=== PATIENT | female | born 1940 | race Two or more races ===

== ENCOUNTER 2021-05-21 19:14 | Emergency (ER) | payer OTHER ==
[~2021-05-21] VITALS: Ht 165.1 cm; Wt 65.8 kg
[2021-05-21] MEDS ORDERED: SODIUM CHLORIDE 0.9% 500 ML IV ONE (19:45)
[2021-05-21] MEDS ORDERED: VANCOMYCIN PER PHARMACY 1,000 MG IV SCH (19:45)
[2021-05-21 20:20] LABS: Basophils # (auto) 0 10 ^3/uL (0-0.2); Eosinophils # (auto) 0 10 ^3/uL (0-0.8); Eosinophils % (auto) 0.1 % (0.0-7.0); Hematocrit 16.8 % (36.0-46.0); Lymphocytes # (auto) 0.2 10 ^3/uL (0.4-5.4); Monocytes # (auto) 0.4 10 ^3/uL (0-1.3); Neutrophils # (auto) 5.2 10 ^3/uL (1.6-8.6); Red Blood Cells 1.78 10^6/uL (4.0-5.20)
[2021-05-21 20:22] LABS: Basophils % (auto) 0.8 % (0.0-2.0); Lymphocytes % (auto) 4.1 % (10.0-50.0); Mean Corpuscular Hemoglobin 31.6 pg (28.0-32.0); Mean Corpuscular Hgb Conc. 33.6 g/dL (32.0-36.0); Mean Corpuscular Volume 94.1 fL (80.0-100.0); Monocytes % (auto) 7.4 % (0.0-12.0); Neutrophils % (auto) 87.6 % (37.0-80.0); Red Cell Distribution Width 17.1 % (11.8-14.3)
[2021-05-21 20:25] LABS: Albumin 1.9 g/dL (3.4-5.0); Calcium 6.7 mg/dL (8.5-10.1); Magnesium 1.5 mg/dL (1.6-2.6)
[2021-05-21 20:27] LABS: INR 1.25 (0.9-1.15); Partial Thromboplastin Time 34.5 sec (23.6-33.0)
[2021-05-21 20:31] LABS: BUN/Creatinine Ratio 5.7; Bilirubin, Total 0.6 mg/dL (0.2-1.0); Total Protein 5.2 g/dL (6.4-8.2)
[2021-05-21 20:40] LABS: Hemoglobin 5.6 g/dL (12.2-16.2); Potassium 2.8 mmol/L (3.5-5.1)
[2021-05-21] MEDS ORDERED: POTASSIUM CHLORIDE 20 MEQ in D5W 5% 1,000 ML IV SCH (20:45)
[2021-05-21] MEDS ORDERED: VANCOMYCIN 1GM/250ML 250 ML IV ONE (21:30)
[2021-05-21] MEDS ORDERED: PIPERACILLIN-TAZOB 2.25GM 50 ML IV SCH (22:00)
[2021-05-21] MEDS ORDERED: POTASSIUM CHL 20MEQ/100ML 100 ML IV ONE (22:00)
[2021-05-22] MEDS ORDERED: PIPERACILLIN-TAZOB 3.375GM 100 ML IV SCH
[2021-05-22] MEDS ORDERED: diphenhdrAMINE HCL 50 MG/1 ML VL IV ONE (00:15)
[2021-05-22 00:51] VITALS: BP 157/53
[2021-05-22 01:14] VITALS: BP 152/56
[2021-05-22 02:26] VITALS: BP 190/81
[2021-05-22 02:52] VITALS: BP 147/51
[2021-05-22 03:25] VITALS: BP 144/49
== END 2021-05-22 04:45 | disposition short-term general hospital (02) ==
LOC: EDBD 19:14 → ER 19:14
DX: D64.9 Anemia, unspecified (principal); E87.6 Hypokalemia; A41.9 Sepsis, unspecified organism; J18.9 Pneumonia, unspecified organism; I13.2 Hypertensive heart and chronic kidney disease with heart failure and with stage 5 chronic kidney disease, or end stage renal disease; N18.6 End stage renal disease; I50.9 Heart failure, unspecified; Z20.822 Contact with and (suspected) exposure to COVID-19
CPT/HCPCS: 36415; 36430; 71045; 80053; 83605; 83690; 83735; 84484; 85025; 85610; 85730; 86850; 86900; 86901; 87040; 87426; 93005; 96365; 96366; 96368; 96375; 99285; J1200; J3370; J3480; J7030; J7040; J7070; P9016; 86922

== ENCOUNTER 2021-06-10 06:37 | Emergency (ER) | payer OTHER ==
[~2021-06-10] VITALS: Ht 160 cm; Wt 74.8 kg
[2021-06-10] MEDS ORDERED: LABETALOL HCL 5 MG/ML 4ML SYRINGE IV ONE (07:15)
[2021-06-10 07:48] LABS: Basophils # (auto) 0.1 10 ^3/uL (0-0.2); Basophils % (auto) 0.7 % (0.0-2.0); Eosinophils # (auto) 0.2 10 ^3/uL (0-0.8); Eosinophils % (auto) 1.8 % (0.0-7.0); Hematocrit 26.8 % (36.0-46.0); Lymphocytes % (auto) 10.2 % (10.0-50.0); Mean Corpuscular Hgb Conc. 33.5 g/dL (32.0-36.0); Mean Corpuscular Volume 98.6 fL (80.0-100.0); Monocytes # (auto) 0.4 10 ^3/uL (0-1.3); Monocytes % (auto) 4.4 % (0.0-12.0); Neutrophils # (auto) 8.2 10 ^3/uL (1.6-8.6); Neutrophils % (auto) 82.9 % (37.0-80.0); Red Blood Cells 2.72 10^6/uL (4.0-5.20); Red Cell Distribution Width 18.5 % (11.8-14.3); White Blood Cell 9.9 10^3/uL (4.4-10.8)
[2021-06-10 08:01] LABS: Albumin 3.2 g/dL (3.4-5.0); Calcium 9.5 mg/dL (8.5-10.1); Magnesium 2.2 mg/dL (1.6-2.6)
[2021-06-10 08:09] LABS: BUN/Creatinine Ratio 9.1; Bilirubin, Total 0.7 mg/dL (0.2-1.0); Total Protein 7.7 g/dL (6.4-8.2)
[2021-06-10 08:12] LABS: Potassium 5.6 mmol/L (3.5-5.1)
[2021-06-10 08:18] LABS: INR 0.99 (0.9-1.15); Partial Thromboplastin Time 32.5 sec (23.6-33.0)
[2021-06-10] MEDS ORDERED: ALBUTEROL SULF 2.5 MG/0.5ML(0.5%) NEB SOLN NEB ONE (08:30)
[2021-06-10] MEDS ORDERED: SODIUM ZIRCONIUM CYCL 10 GM PAK PO ONE (08:30)
[2021-06-10] MEDS ORDERED: FUROSEMIDE 20 MG/2 ML VIAL IV ONE (08:30)
[2021-06-10] MEDS ORDERED: InsuLIN REG 1unit/0.01ml Soln (100units/ml) IV ONE (08:30)
[2021-06-10] MEDS ORDERED: CALCIUM GLUC 1,000mg/50ml-NS 50 ML IV ONE (08:30)
[2021-06-10] MEDS ORDERED: SODIUM BICARBONATE 8.4% INJ 50ML SYRINGE IV ONE (08:30)
[2021-06-10] MEDS ORDERED: DEXTROSE (50%) 50ML SYRG IV ONE (08:30)
[2021-06-10 09:13] LABS: Urine Bacteria NONE SEEN /hpf (None Seen); Urine Blood 1+ /uL (Negative); Urine Specific Gravity 1.009 (1.001-1.035); Urine WBC 2 /hpf (0 - 5)
[2021-06-10] MEDS ORDERED: PIPERACILLIN-TAZOB 3.375GM 100 ML IV ONE (10:45)
[2021-06-10 14:18] VITALS: BP 139/64
== END 2021-06-10 14:32 | disposition short-term general hospital (02) ==
LOC: ER 06:37 → EDBD 06:37 → ER 14:32
DX: I13.2 Hypertensive heart and chronic kidney disease with heart failure and with stage 5 chronic kidney disease, or end stage renal disease (principal); I50.9 Heart failure, unspecified; N18.6 End stage renal disease; E11.22 Type 2 diabetes mellitus with diabetic chronic kidney disease; J18.9 Pneumonia, unspecified organism; E87.5 Hyperkalemia; E44.1 Mild protein-calorie malnutrition; Z68.29 Body mass index [BMI] 29.0-29.9, adult; Z99.2 Dependence on renal dialysis; Z20.822 Contact with and (suspected) exposure to COVID-19
CPT/HCPCS: 36415; 71045; 80053; 81001; 83735; 83880; 84132; 84484; 85025; 85379; 85610; 85730; 87426; 93005; 94640; 96365; 96366; 96367; 96375; 99285; J0610; J1815; J1940; J2543; J7042; J3490

== ENCOUNTER 2021-07-31 11:03 | Emergency (ER) | payer OTHER ==
[~2021-07-31] VITALS: Ht 157.5 cm; Wt 76.2 kg
[2021-07-31 11:07] VITALS: BP 137/52
== END 2021-07-31 12:00 | disposition left against medical advice (07) ==
LOC: ER 11:03
DX: R51.9 Headache, unspecified (principal); H53.8 Other visual disturbances; R11.0 Nausea; Z53.21 Procedure and treatment not carried out due to patient leaving prior to being seen by health care provider

== ENCOUNTER 2021-10-16 14:09 | Inpatient (IN) | payer OTHER ==
[~2021-10-16] VITALS: Ht 157.5 cm; Wt 80.0 kg
[2021-10-16 15:17] LABS: Basophils # (auto) 0.1 10 ^3/uL (0-0.2); Basophils % (auto) 1.4 % (0.0-2.0); Eosinophils # (auto) 0.1 10 ^3/uL (0-0.8); Eosinophils % (auto) 0.7 % (0.0-7.0); Hematocrit 30.2 % (36.0-46.0); Hemoglobin 10.5 g/dL (12.2-16.2); Lymphocytes # (auto) 0.5 10 ^3/uL (0.4-5.4); Lymphocytes % (auto) 5.2 % (10.0-50.0); Mean Corpuscular Hemoglobin 34.3 pg (28.0-32.0); Mean Corpuscular Hgb Conc. 34.8 g/dL (32.0-36.0); Mean Corpuscular Volume 98.5 fL (80.0-100.0); Monocytes # (auto) 0.5 10 ^3/uL (0-1.3); Monocytes % (auto) 4.6 % (0.0-12.0); Neutrophils # (auto) 9.2 10 ^3/uL (1.6-8.6); Neutrophils % (auto) 88.1 % (37.0-80.0); Nucleated Red Blood Cells % 0.1 %; Red Blood Cells 3.06 10^6/uL (4.0-5.20); Red Cell Distribution Width 14.9 % (11.8-14.3); White Blood Cell 10.4 10^3/uL (4.4-10.8)
[2021-10-16 15:26] LABS: Albumin 3.4 g/dL (3.4-5.0); Calcium 9.7 mg/dL (8.5-10.1)
[2021-10-16 15:37] LABS: BUN/Creatinine Ratio 5.3; Bilirubin, Total 0.8 mg/dL (0.2-1.0); Total Protein 7.4 g/dL (6.4-8.2)
[2021-10-16] MEDS ORDERED: hydrALAZINE HCL 20 MG/ML VL IV ONE (17:30)
[2021-10-16] MEDS ORDERED: FUROSEMIDE 40 MG/4 ML VIAL IV ONE (17:45)
[2021-10-16] MEDS ORDERED: TEMAZEPAM 15 MG CAP PO PRN (21:00)
[2021-10-16] MEDS ORDERED: ACETAMINOPHEN 325 MG TAB PO PRN (21:00)
[2021-10-16] MEDS ORDERED: DEXTROSE (50%) 50ML SYRG IV PRN (21:00)
[2021-10-16] MEDS ORDERED: MORPHINE SULFATE INJECTION 2 MG/ML SYRG IV PRN (21:00)
[2021-10-16] MEDS ORDERED: NITROGLYCERIN 0.4 MG SL TAB SL PRN (21:00)
[2021-10-16] MEDS ORDERED: hydrALAZINE HCL 20 MG/ML VL IV PRN (21:45)
[2021-10-16] MEDS ORDERED: cloNIDine HCL 0.1 MG TAB PO ONE (21:45)
[2021-10-16] MEDS: InsuLIN REG 1unit/0.01ml Soln (100units/ml) SC SCH (22:00)
[2021-10-16 22:02] LABS: Urine Bacteria NONE SEEN /hpf (None Seen); Urine Blood TRACE /uL (Negative); Urine Specific Gravity 1.012 (1.001-1.035); Urine WBC <1 /hpf (0 - 5)
[2021-10-16] MEDS: ATORVASTATIN 20 MG TAB PO SCH (22:21)
[2021-10-16] MEDS: ACCU-CHEK COMFORT CURVE STRIP VI SCH (22:22)
[2021-10-17] VITALS (34 sets, daily range): BP systolic 119–170; BP diastolic 40–113
[2021-10-17] MEDS ORDERED: ENOXAPARIN SOD 100 MG/1 ML SYRINGE SC ONE (02:45)
[2021-10-17 04:30] LABS: Basophils # (auto) 0.1 10 ^3/uL (0-0.2); Eosinophils # (auto) 0.1 10 ^3/uL (0-0.8); Eosinophils % (auto) 0.9 % (0.0-7.0); Hematocrit 26.5 % (36.0-46.0); Hemoglobin 9.3 g/dL (12.2-16.2); Lymphocytes # (auto) 1.1 10 ^3/uL (0.4-5.4); Lymphocytes % (auto) 14.7 % (10.0-50.0); Mean Corpuscular Hemoglobin 34.4 pg (28.0-32.0); Mean Corpuscular Hgb Conc. 35.1 g/dL (32.0-36.0); Mean Corpuscular Volume 97.9 fL (80.0-100.0); Monocytes # (auto) 0.8 10 ^3/uL (0-1.3); Monocytes % (auto) 10.8 % (0.0-12.0); Neutrophils # (auto) 5.4 10 ^3/uL (1.6-8.6); Neutrophils % (auto) 72.6 % (37.0-80.0); Red Cell Distribution Width 14.8 % (11.8-14.3); White Blood Cell 7.4 10^3/uL (4.4-10.8)
[2021-10-17 05:18] LABS: Calcium 9.1 mg/dL (8.5-10.1); Potassium 3.9 mmol/L (3.5-5.1)
[2021-10-17 05:20] LABS: BUN/Creatinine Ratio 5.6
[2021-10-17] MEDS: ACCU-CHEK COMFORT CURVE STRIP VI SCH ×4 (06:48→22:09)
[2021-10-17] MEDS: InsuLIN REG 1unit/0.01ml Soln (100units/ml) SC SCH ×4 (06:49→22:53)
[2021-10-17] MEDS: ASPirin 81 mg TAB PO SCH (09:23)
[2021-10-17] MEDS ORDERED: METOPROLOL TARTRATE 50 MG TAB PO SCH (10:00)
[2021-10-17] MEDS ORDERED: ENOXAPARIN SOD 30 MG/0.3 ML SYRINGE SC SCH (10:00)
[2021-10-17] MEDS: ISOSORBIDE MONONITRATE ER 60 MG TAB PO SCH (10:01)
[2021-10-17] MEDS: LISINOPRIL 20 MG TAB PO SCH (10:02)
[2021-10-17] MEDS: METOPROLOL TARTRATE 25 MG TAB PO SCH ×2 (10:10→22:09)
[2021-10-17] MEDS: ATORVASTATIN 20 MG TAB PO SCH (22:08)
[2021-10-18 05:00] VITALS: BP 125/62
[2021-10-18] MEDS: InsuLIN REG 1unit/0.01ml Soln (100units/ml) SC SCH ×4 (06:13→22:41)
[2021-10-18] MEDS: ACCU-CHEK COMFORT CURVE STRIP VI SCH ×4 (06:13→22:23)
[2021-10-18 06:47] LABS: Calcium 8.9 mg/dL (8.5-10.1); Potassium 4.4 mmol/L (3.5-5.1)
[2021-10-18 06:52] LABS: BUN/Creatinine Ratio 6.5; Hematocrit 21.4 % (36.0-46.0); Hemoglobin 7.9 g/dL (12.2-16.2)
[2021-10-18] MEDS ORDERED: SODIUM CHL 0.9% 1000 ML BAG XX ONE (07:00)
[2021-10-18 09:00] VITALS: BP 168/57
[2021-10-18] MEDS: ASPirin 81 mg TAB PO SCH (09:46)
[2021-10-18] MEDS: ISOSORBIDE MONONITRATE ER 60 MG TAB PO SCH (10:00)
[2021-10-18] MEDS: METOPROLOL TARTRATE 25 MG TAB PO SCH ×2 (10:00→22:24)
[2021-10-18] MEDS: LISINOPRIL 20 MG TAB PO SCH (10:00)
[2021-10-18] MEDS: B-COMPLEX W/ C & FOLIC ACID(NEPHROVITE TAB) PO SCH (12:57)
[2021-10-18 13:00] VITALS: BP 164/68
[2021-10-18] MEDS: hydrALAZINE HCL 25 MG TAB PO SCH ×2 (14:00→22:25)
[2021-10-18] MEDS: HYDROcodone-ACET 5/325MG TAB PO PRN ×2 (15:18→21:21)
[2021-10-18 17:00] VITALS: BP 175/71
[2021-10-18] MEDS ORDERED: EPOETIN ALFA-EPBX 4,000 UNIT/ML VIAL SC ONE (21:00)
[2021-10-18 22:00] VITALS: BP 151/59
[2021-10-18] MEDS: ATORVASTATIN 20 MG TAB PO SCH (22:24)
[2021-10-19 05:00] VITALS: BP 108/66
[2021-10-19] MEDS: hydrALAZINE HCL 25 MG TAB PO SCH ×3 (05:47→22:00)
[2021-10-19 06:25] LABS: Basophils # (auto) 0.1 10 ^3/uL (0-0.2); Eosinophils # (auto) 0.2 10 ^3/uL (0-0.8); Hematocrit 25.6 % (36.0-46.0); Monocytes # (auto) 0.6 10 ^3/uL (0-1.3); White Blood Cell 5.9 10^3/uL (4.4-10.8)
[2021-10-19 06:29] LABS: Basophils % (auto) 1.1 % (0.0-2.0); Eosinophils % (auto) 3.9 % (0.0-7.0); Hemoglobin 9.1 g/dL (12.2-16.2); Lymphocytes # (auto) 1.2 10 ^3/uL (0.4-5.4); Lymphocytes % (auto) 20.2 % (10.0-50.0); Mean Corpuscular Hemoglobin 34.9 pg (28.0-32.0); Mean Corpuscular Hgb Conc. 35.5 g/dL (32.0-36.0); Mean Corpuscular Volume 98.4 fL (80.0-100.0); Monocytes % (auto) 10.2 % (0.0-12.0); Neutrophils # (auto) 3.8 10 ^3/uL (1.6-8.6); Neutrophils % (auto) 64.6 % (37.0-80.0); Nucleated Red Blood Cells % 0.1 %; Red Cell Distribution Width 14.8 % (11.8-14.3)
[2021-10-19 06:30] LABS: INR 1.04 (0.9-1.15); Partial Thromboplastin Time 24.6 sec (23.6-33.0)
[2021-10-19 06:36] LABS: Calcium 9.6 mg/dL (8.5-10.1); Potassium 4.8 mmol/L (3.5-5.1)
[2021-10-19 06:41] LABS: BUN/Creatinine Ratio 7.4
[2021-10-19] MEDS: ACCU-CHEK COMFORT CURVE STRIP VI SCH ×4 (06:45→22:00)
[2021-10-19] MEDS: InsuLIN REG 1unit/0.01ml Soln (100units/ml) SC SCH ×4 (06:46→22:00)
[2021-10-19] MEDS: ISOSORBIDE MONONITRATE ER 60 MG TAB PO SCH (08:14)
[2021-10-19] MEDS: METOPROLOL TARTRATE 25 MG TAB PO SCH ×2 (08:16→09:16)
[2021-10-19] MEDS: LISINOPRIL 20 MG TAB PO SCH (08:16)
[2021-10-19] MEDS ORDERED: IODIXANOL 320MG/ML 100ML BTL IV ONE ×5 (08:46→10:56)
[2021-10-19] MEDS ORDERED: LIDOCAINE 2%HCL (LOCAL ANESTH.) INJ 20ML MDV ONE (08:46)
[2021-10-19] MEDS ORDERED: HEPARIN IN NS 1000Units/500mL 1,500 ML ONE (08:46)
[2021-10-19 09:00] VITALS: BP 178/87
[2021-10-19] MEDS ORDERED: MIDAZOLAM HCL 2MG/2ML 2ml VIAL (1mg/ml) ONE ×2 (09:00→10:38)
[2021-10-19] MEDS ORDERED: fentaNYL CITRATE 100 MCG/2 ML VL ONE (09:00)
[2021-10-19] MEDS ORDERED: SODIUM CHL 0.9% 50 ML ONE (09:00)
[2021-10-19] MEDS ORDERED: HEPARIN SODIUM (PORCINE) 5000 UNITS/ML 1ML VIAL ONE (09:00)
[2021-10-19] MEDS ORDERED: VERAPAMIL 2.5MG/ML INJ 2ML VIAL IV ONE (09:00)
[2021-10-19] MEDS ORDERED: ANGIOMAX 250 MG VIAL IV ONE (09:00)
[2021-10-19] MEDS ORDERED: EPINEPHrine HCL 1 MG/10 ML SYRG ONE (09:39)
[2021-10-19] MEDS ORDERED: ATROPINE SULF 1 MG/10ml SYR ONE (09:39)
[2021-10-19] MEDS: ASPirin 81 mg TAB PO SCH (10:00)
[2021-10-19] MEDS: B-COMPLEX W/ C & FOLIC ACID(NEPHROVITE TAB) PO SCH (10:00)
[2021-10-19] MEDS ORDERED: ASPirin 325 MG TAB ONE (11:05)
[2021-10-19] MEDS ORDERED: CLOPIDOGREL 300 MG TAB ONE (11:05)
[2021-10-19] MEDS ORDERED: HYDROcodone-ACET 5/325MG TAB ONE (11:24)
[2021-10-19] MEDS: HYDROcodone-ACET 5/325MG TAB PO PRN (16:41)
[2021-10-19] MEDS ORDERED: MORPHINE SULFATE INJECTION 2 MG/ML SYRG IV ONE (16:45)
[2021-10-19 17:00] VITALS: BP 106/44
[2021-10-19 22:00] VITALS: BP 126/64
[2021-10-19] MEDS: diphenhdrAMINE HCL 25 MG CAP PO PRN (22:00)
[2021-10-19] MEDS: ATORVASTATIN 20 MG TAB PO SCH (22:00)
[2021-10-20] MEDS: HYDROcodone-ACET 5/325MG TAB PO PRN ×3 (03:51→18:33)
[2021-10-20 05:00] VITALS: BP 137/48
[2021-10-20] MEDS: hydrALAZINE HCL 25 MG TAB PO SCH ×3 (06:00→22:00)
[2021-10-20 06:54] LABS: BUN/Creatinine Ratio 7.9; Calcium 8.9 mg/dL (8.5-10.1); Potassium 4.8 mmol/L (3.5-5.1)
[2021-10-20] MEDS: ACCU-CHEK COMFORT CURVE STRIP VI SCH ×4 (07:00→22:00)
[2021-10-20] MEDS ORDERED: SODIUM CHL 0.9% 1000 ML BAG XX ONE (07:00)
[2021-10-20] MEDS: InsuLIN REG 1unit/0.01ml Soln (100units/ml) SC SCH ×4 (07:15→22:32)
[2021-10-20 09:00] VITALS: BP 122/51
[2021-10-20] MEDS ORDERED: PANT40TA2 PO (09:16)
[2021-10-20] MEDS ORDERED: ISO60SRT PO (09:16)
[2021-10-20] MEDS ORDERED: NITR0.4S29 SL (09:16)
[2021-10-20] MEDS ORDERED: MET25T PO (09:16)
[2021-10-20] MEDS ORDERED: HYDR50TA15 PO (09:16)
[2021-10-20] MEDS ORDERED: ASPI1TAB20 PO (09:16)
[2021-10-20] MEDS ORDERED: CLOP75TA28 PO (09:16)
[2021-10-20] MEDS: ISOSORBIDE MONONITRATE ER 60 MG TAB PO SCH (10:00)
[2021-10-20] MEDS: LISINOPRIL 20 MG TAB PO SCH (10:00)
[2021-10-20] MEDS: ASPirin 81 mg TAB PO SCH (10:15)
[2021-10-20] MEDS: B-COMPLEX W/ C & FOLIC ACID(NEPHROVITE TAB) PO SCH (10:16)
[2021-10-20] MEDS: METOPROLOL TARTRATE 25 MG TAB PO SCH ×2 (10:16→22:00)
[2021-10-20] MEDS: CLOPIDOGREL BISULFATE 75 MG TAB PO SCH (10:17)
[2021-10-20 13:00] VITALS: BP 134/49
[2021-10-20 16:38] VITALS: BP 139/69
[2021-10-20] MEDS: ONDANSETRON HCL 4 MG/2 ML VIAL IV PRN (18:44)
[2021-10-20] MEDS ORDERED: EPOETIN ALFA-EPBX 4,000 UNIT/ML VIAL SC ONE (21:00)
[2021-10-20 22:00] VITALS: BP 126/51
[2021-10-20] MEDS: ATORVASTATIN 20 MG TAB PO SCH (22:00)
[2021-10-21] VITALS (14 sets, daily range): BP systolic 111–148; BP diastolic 38–62
[2021-10-21] MEDS: HYDROcodone-ACET 5/325MG TAB PO PRN ×2 (00:12→19:54)
[2021-10-21] MEDS: hydrALAZINE HCL 25 MG TAB PO SCH ×3 (06:12→22:30)
[2021-10-21] MEDS: ACCU-CHEK COMFORT CURVE STRIP VI SCH ×4 (06:51→22:00)
[2021-10-21] MEDS: InsuLIN REG 1unit/0.01ml Soln (100units/ml) SC SCH ×4 (06:54→22:00)
[2021-10-21 08:23] LABS: BUN/Creatinine Ratio 6.2; Calcium 8.8 mg/dL (8.5-10.1); Potassium 4.5 mmol/L (3.5-5.1)
[2021-10-21] MEDS: B-COMPLEX W/ C & FOLIC ACID(NEPHROVITE TAB) PO SCH (10:00)
[2021-10-21] MEDS: ASPirin 81 mg TAB PO SCH (10:00)
[2021-10-21] MEDS: CLOPIDOGREL BISULFATE 75 MG TAB PO SCH (10:00)
[2021-10-21] MEDS: METOPROLOL TARTRATE 25 MG TAB PO SCH ×2 (10:00→22:00)
[2021-10-21] MEDS ORDERED: LIDOCAINE 2%HCL (LOCAL ANESTH.) INJ 20ML MDV ONE (10:01)
[2021-10-21] MEDS ORDERED: MIDAZOLAM HCL 2MG/2ML 2ml VIAL (1mg/ml) ONE ×2 (10:32→16:06)
[2021-10-21] MEDS ORDERED: fentaNYL CITRATE 100 MCG/2 ML VL ONE ×2 (10:32→16:06)
[2021-10-21] MEDS ORDERED: IOHEXOL 350 MG/ML 100ML IJ ONE (11:36)
[2021-10-21] MEDS ORDERED: THROMBIN (BOVINE) 5000 UNIT SOL VIAL ONE (16:23)
[2021-10-21] MEDS ORDERED: THROMBIN (BOVINE) 5000 UNIT SOL VIAL TP ONE (17:30)
[2021-10-21 18:52] LABS: Basophils # (auto) 0.1 10 ^3/uL (0-0.2); Eosinophils % (auto) 0.6 % (0.0-7.0); Lymphocytes # (auto) 0.8 10 ^3/uL (0.4-5.4); Monocytes # (auto) 0.6 10 ^3/uL (0-1.3); Nucleated Red Blood Cells % 0.1 %; Red Cell Distribution Width 16.1 % (11.8-14.3)
[2021-10-21 18:53] LABS: Basophils % (auto) 1.4 % (0.0-2.0); Eosinophils # (auto) 0.1 10 ^3/uL (0-0.8); Hematocrit 18.2 % (36.0-46.0); Lymphocytes % (auto) 9.8 % (10.0-50.0); Mean Corpuscular Hemoglobin 34.9 pg (28.0-32.0); Mean Corpuscular Hgb Conc. 36.2 g/dL (32.0-36.0); Mean Corpuscular Volume 96.4 fL (80.0-100.0); Monocytes % (auto) 6.8 % (0.0-12.0); Neutrophils % (auto) 81.4 % (37.0-80.0); Red Blood Cells 1.89 10^6/uL (4.0-5.20); White Blood Cell 8.6 10^3/uL (4.4-10.8)
[2021-10-21 18:59] LABS: Hemoglobin 6.6 g/dL (12.2-16.2)
[2021-10-21] MEDS: ATORVASTATIN 20 MG TAB PO SCH (22:00)
[2021-10-22] VITALS (12 sets, daily range): BP systolic 123–188; BP diastolic 50–76
[2021-10-22] MEDS: HYDROcodone-ACET 5/325MG TAB PO PRN ×5 (02:00→23:51)
[2021-10-22 05:28] LABS: Hematocrit 23.7 % (36.0-46.0); Hemoglobin 8.4 g/dL (12.2-16.2)
[2021-10-22] MEDS: ONDANSETRON HCL 4 MG/2 ML VIAL IV PRN (05:31)
[2021-10-22] MEDS: guaiFENesin-DM 100/10mg/5ml SYR PO PRN (05:44)
[2021-10-22] MEDS: hydrALAZINE HCL 25 MG TAB PO SCH ×3 (06:00→22:28)
[2021-10-22] MEDS: ACCU-CHEK COMFORT CURVE STRIP VI SCH ×4 (07:00→21:27)
[2021-10-22] MEDS: InsuLIN REG 1unit/0.01ml Soln (100units/ml) SC SCH ×4 (07:00→21:27)
[2021-10-22] MEDS ORDERED: SODIUM CHL 0.9% 1000 ML BAG XX ONE (07:00)
[2021-10-22] MEDS: diphenhdrAMINE HCL 25 MG CAP PO PRN ×2 (10:02→17:47)
[2021-10-22] MEDS: ASPirin 81 mg TAB PO SCH (10:04)
[2021-10-22] MEDS: METOPROLOL TARTRATE 25 MG TAB PO SCH ×2 (10:05→22:29)
[2021-10-22] MEDS: CLOPIDOGREL BISULFATE 75 MG TAB PO SCH (10:06)
[2021-10-22] MEDS: B-COMPLEX W/ C & FOLIC ACID(NEPHROVITE TAB) PO SCH (10:06)
[2021-10-22 12:53] LABS: Basophils # (auto) 0 10 ^3/uL (0-0.2); Basophils % (auto) 0.3 % (0.0-2.0); Eosinophils # (auto) 0 10 ^3/uL (0-0.8); Eosinophils % (auto) 0.2 % (0.0-7.0); Lymphocytes # (auto) 0.4 10 ^3/uL (0.4-5.4); Monocytes # (auto) 0.6 10 ^3/uL (0-1.3)
[2021-10-22 12:55] LABS: Lymphocytes % (auto) 3.6 % (10.0-50.0); Mean Corpuscular Hemoglobin 32.7 pg (28.0-32.0); Mean Corpuscular Volume 93.5 fL (80.0-100.0); Monocytes % (auto) 5.1 % (0.0-12.0); Neutrophils % (auto) 90.8 % (37.0-80.0); Nucleated Red Blood Cells % 0.2 %; Red Blood Cells 2.46 10^6/uL (4.0-5.20); Red Cell Distribution Width 16.2 % (11.8-14.3)
[2021-10-22] MEDS ORDERED: EPOETIN ALFA-EPBX 4,000 UNIT/ML VIAL SC ONE (21:00)
[2021-10-22] MEDS: ATORVASTATIN 20 MG TAB PO SCH (22:29)
[2021-10-22] MEDS: HEPARIN SODIUM (PORCINE) 5000 UNITS/ML 1ML VIAL SC SCH (22:30)
[2021-10-22] MEDS: hydrALAZINE HCL 20 MG/ML VL IV PRN (23:50)
[2021-10-23 04:44] VITALS: BP 159/65
[2021-10-23 05:29] LABS: Basophils # (auto) 0 10 ^3/uL (0-0.2); Basophils % (auto) 1.1 % (0.0-2.0); Eosinophils # (auto) 0 10 ^3/uL (0-0.8); Eosinophils % (auto) 1.3 % (0.0-7.0); Hematocrit 35.7 % (36.0-46.0); Hemoglobin 12.5 g/dL (12.2-16.2); Lymphocytes # (auto) 0.4 10 ^3/uL (0.4-5.4); Lymphocytes % (auto) 11.1 % (10.0-50.0); Mean Corpuscular Hemoglobin 32.5 pg (28.0-32.0); Mean Corpuscular Volume 92.8 fL (80.0-100.0); Monocytes # (auto) 0.2 10 ^3/uL (0-1.3); Monocytes % (auto) 5.5 % (0.0-12.0); Neutrophils # (auto) 3.1 10 ^3/uL (1.6-8.6); Nucleated Red Blood Cells % 0.1 %; Red Blood Cells 3.84 10^6/uL (4.0-5.20); Red Cell Distribution Width 16.1 % (11.8-14.3); White Blood Cell 3.8 10^3/uL (4.4-10.8)
[2021-10-23 05:32] LABS: Anion Gap 8 (5-15); BUN/Creatinine Ratio 5.3; Blood Urea Nitrogen 31 mg/dL (7-18); Calcium 8.7 mg/dL (8.5-10.1); Carbon Dioxide 28 mmol/L (21-32); Chloride 97 mmol/L (98-107); GFR African American 9 mL/min; GFR Non-African American 7 mL/min; Glucose 120 mg/dL (74-106); Sodium 133 mmol/L (136-145)
[2021-10-23] MEDS: HEPARIN SODIUM (PORCINE) 5000 UNITS/ML 1ML VIAL SC SCH ×3 (05:58→22:14)
[2021-10-23] MEDS: hydrALAZINE HCL 25 MG TAB PO SCH ×3 (05:58→22:35)
[2021-10-23] MEDS: diphenhdrAMINE HCL 25 MG CAP PO PRN (06:23)
[2021-10-23] MEDS: InsuLIN REG 1unit/0.01ml Soln (100units/ml) SC SCH ×4 (06:41→22:13)
[2021-10-23] MEDS: ACCU-CHEK COMFORT CURVE STRIP VI SCH ×4 (06:41→22:14)
[2021-10-23] MEDS: HYDROcodone-ACET 5/325MG TAB PO PRN (07:47)
[2021-10-23 09:00] VITALS: BP 183/52
[2021-10-23] MEDS: ASPirin 81 mg TAB PO SCH (09:55)
[2021-10-23] MEDS: B-COMPLEX W/ C & FOLIC ACID(NEPHROVITE TAB) PO SCH (09:55)
[2021-10-23] MEDS: METOPROLOL TARTRATE 25 MG TAB PO SCH (09:56)
[2021-10-23] MEDS ORDERED: LISINOPRIL 20 MG TAB PO ONE (10:15)
[2021-10-23] MEDS ORDERED: CLOPIDOGREL BISULFATE 75 MG TAB PO ONE (10:15)
[2021-10-23 13:00] VITALS: BP 162/54
[2021-10-23 17:00] VITALS: BP 185/48
[2021-10-23] MEDS: guaiFENesin-DM 100/10mg/5ml SYR PO PRN (20:19)
[2021-10-23 22:00] VITALS: BP 160/84
[2021-10-23] MEDS: METOPROLOL TARTRATE 50 MG TAB PO SCH (22:32)
[2021-10-23] MEDS: ATORVASTATIN 20 MG TAB PO SCH (22:32)
[2021-10-23] MEDS ORDERED: THROAT LOZENGES(CEPASTAT) MT PRN (23:30)
[2021-10-24] MEDS: hydrALAZINE HCL 20 MG/ML VL IV PRN (02:27)
[2021-10-24] MEDS: HYDROcodone-ACET 5/325MG TAB PO PRN ×2 (02:29→22:11)
[2021-10-24] MEDS ORDERED: LABETALOL HCL 5 MG/ML 4ML SYRINGE IV ONE (03:30)
[2021-10-24] MEDS ORDERED: LABETALOL HCL 5 MG/ML 4ML SYRINGE IV PRN (04:45)
[2021-10-24 05:00] VITALS: BP 184/88
[2021-10-24] MEDS: hydrALAZINE HCL 25 MG TAB PO SCH ×3 (05:03→21:54)
[2021-10-24] MEDS: HEPARIN SODIUM (PORCINE) 5000 UNITS/ML 1ML VIAL SC SCH ×3 (05:07→21:58)
[2021-10-24] MEDS: InsuLIN REG 1unit/0.01ml Soln (100units/ml) SC SCH ×4 (06:18→21:55)
[2021-10-24] MEDS: ACCU-CHEK COMFORT CURVE STRIP VI SCH ×4 (06:18→21:55)
[2021-10-24 06:43] VITALS: BP 139/50
[2021-10-24 07:16] LABS: Basophils # (auto) 0 10 ^3/uL (0-0.2); Basophils % (auto) 0.4 % (0.0-2.0); Eosinophils # (auto) 0 10 ^3/uL (0-0.8); Monocytes # (auto) 0.5 10 ^3/uL (0-1.3); Neutrophils # (auto) 6.7 10 ^3/uL (1.6-8.6); White Blood Cell 7.7 10^3/uL (4.4-10.8)
[2021-10-24 07:18] LABS: Eosinophils % (auto) 0.4 % (0.0-7.0); Hemoglobin 7.5 g/dL (12.2-16.2); Lymphocytes # (auto) 0.4 10 ^3/uL (0.4-5.4); Lymphocytes % (auto) 5.5 % (10.0-50.0); Mean Corpuscular Hemoglobin 33.7 pg (28.0-32.0); Mean Corpuscular Hgb Conc. 35.9 g/dL (32.0-36.0); Monocytes % (auto) 6.5 % (0.0-12.0); Neutrophils % (auto) 87.2 % (37.0-80.0); Nucleated Red Blood Cells % 0.1 %; Red Blood Cells 2.24 10^6/uL (4.0-5.20); Red Cell Distribution Width 15.3 % (11.8-14.3)
[2021-10-24 08:56] VITALS: BP 154/52
[2021-10-24] MEDS: METOPROLOL TARTRATE 50 MG TAB PO SCH ×2 (09:31→21:53)
[2021-10-24] MEDS: ASPirin 81 mg TAB PO SCH (09:31)
[2021-10-24] MEDS: B-COMPLEX W/ C & FOLIC ACID(NEPHROVITE TAB) PO SCH (09:31)
[2021-10-24] MEDS: LISINOPRIL 20 MG TAB PO SCH (09:32)
[2021-10-24] MEDS: CLOPIDOGREL BISULFATE 75 MG TAB PO SCH (09:32)
[2021-10-24 11:30] VITALS: BP 143/50
[2021-10-24] MEDS: NYSTATIN (MOUTH-THROAT) 500,000 UNITS/5 ML SUSP MT SCH ×3 (11:49→21:54)
[2021-10-24] MEDS ORDERED: PANTOPRAZOLE 40 MG TAB PO ONE (12:30)
[2021-10-24] MEDS ORDERED: amLODIPine BESYLATE 5 MG TAB PO ONE (12:45)
[2021-10-24 13:56] LABS: Hematocrit 23.4 % (36.0-46.0); Hemoglobin 8.1 g/dL (12.2-16.2)
[2021-10-24] MEDS ORDERED: AZITHROMYCIN 500MG/ 250ML 250 ML IV ONE (15:30)
[2021-10-24] MEDS ORDERED: IPRATROPIUM BROM 0.5 MG/2.5ML INH SOL NEB PRN (15:30)
[2021-10-24] MEDS ORDERED: cefTRIAXone 1GM/50ML D5W 50 ML IV ONE (15:30)
[2021-10-24] MEDS ORDERED: ALBUTEROL SULF 2.5 MG/0.5ML(0.5%) NEB SOLN NEB PRN (15:30)
[2021-10-24 19:51] VITALS: BP 143/50
[2021-10-24] MEDS: ATORVASTATIN 20 MG TAB PO SCH (21:53)
[2021-10-24] MEDS: PANTOPRAZOLE 40 MG TAB PO SCH (21:54)
[2021-10-24 22:00] VITALS: BP 148/58
[2021-10-25 05:00] VITALS: BP 143/47
[2021-10-25] MEDS: HYDROcodone-ACET 5/325MG TAB PO PRN ×3 (05:24→20:18)
[2021-10-25] MEDS: NYSTATIN (MOUTH-THROAT) 500,000 UNITS/5 ML SUSP MT SCH ×4 (05:24→21:54)
[2021-10-25] MEDS: hydrALAZINE HCL 25 MG TAB PO SCH ×3 (05:25→21:55)
[2021-10-25] MEDS: HEPARIN SODIUM (PORCINE) 5000 UNITS/ML 1ML VIAL SC SCH ×3 (05:28→21:57)
[2021-10-25 06:11] LABS: Basophils # (auto) 0 10 ^3/uL (0-0.2); Eosinophils # (auto) 0.1 10 ^3/uL (0-0.8); Hematocrit 22.1 % (36.0-46.0); Red Blood Cells 2.34 10^6/uL (4.0-5.20); White Blood Cell 8.3 10^3/uL (4.4-10.8)
[2021-10-25 06:15] LABS: Basophils % (auto) 0.4 % (0.0-2.0); Eosinophils % (auto) 1.7 % (0.0-7.0); Hemoglobin 7.9 g/dL (12.2-16.2); Lymphocytes # (auto) 0.3 10 ^3/uL (0.4-5.4); Mean Corpuscular Hemoglobin 33.5 pg (28.0-32.0); Mean Corpuscular Hgb Conc. 35.6 g/dL (32.0-36.0); Mean Corpuscular Volume 94.1 fL (80.0-100.0); Monocytes # (auto) 0.6 10 ^3/uL (0-1.3); Monocytes % (auto) 7.3 % (0.0-12.0); Neutrophils # (auto) 7.2 10 ^3/uL (1.6-8.6); Neutrophils % (auto) 86.6 % (37.0-80.0); Red Cell Distribution Width 15.4 % (11.8-14.3)
[2021-10-25] MEDS: ACCU-CHEK COMFORT CURVE STRIP VI SCH ×4 (06:28→21:57)
[2021-10-25] MEDS: InsuLIN REG 1unit/0.01ml Soln (100units/ml) SC SCH ×4 (06:29→21:58)
[2021-10-25] MEDS ORDERED: SODIUM CHL 0.9% 1000 ML BAG XX ONE (07:00)
[2021-10-25 09:00] VITALS: BP 119/47
[2021-10-25] MEDS ORDERED: cefTRIAXone 1GM/50ML D5W 50 ML IV SCH (09:00)
[2021-10-25] MEDS: METOPROLOL TARTRATE 50 MG TAB PO SCH ×2 (10:00→21:56)
[2021-10-25] MEDS ORDERED: amLODIPine BESYLATE 5 MG TAB PO SCH (10:00)
[2021-10-25] MEDS: LISINOPRIL 20 MG TAB PO SCH (10:00)
[2021-10-25] MEDS: PANTOPRAZOLE 40 MG TAB PO SCH ×2 (11:13→21:56)
[2021-10-25] MEDS: CLOPIDOGREL BISULFATE 75 MG TAB PO SCH (11:13)
[2021-10-25] MEDS: ASPirin 81 mg TAB PO SCH (11:13)
[2021-10-25] MEDS ORDERED: predniSONE 20 MG TAB PO ONE (11:15)
[2021-10-25] MEDS: AZITHROMYCIN 500MG/ 250ML 250 ML IV SCH ×2 (11:15→14:05)
[2021-10-25] MEDS: B-COMPLEX W/ C & FOLIC ACID(NEPHROVITE TAB) PO SCH (11:28)
[2021-10-25 13:00] VITALS: BP 145/54
[2021-10-25 17:56] VITALS: BP 159/93
[2021-10-25] MEDS: ATORVASTATIN 20 MG TAB PO SCH (21:55)
[2021-10-26] MEDS ORDERED: predniSONE 20 MG TAB PO SCH (10:00)
== END 2021-10-26 02:50 | disposition short-term general hospital (02) | DRG 246 ==
LOC: EDBD 14:09 → ER 14:09 → TELE 20:47 → ICU WEST 23:48 → TELE-CENTR 10-17 11:32
PROVIDERS: ADMIT Nurse Practitioner; ATTEND Internal Medicine
PROC: 5A1D70Z Performance of Urinary Filtration, Intermittent, Less than 6 Hours Per Day (ICD-10-PCS; 2021-10-18)
PROC: 027037Z Dilation of Coronary Artery, One Artery with Four or More Drug-eluting Intraluminal Devices, Percutaneous Approach (ICD-10-PCS; principal; 2021-10-19)
PROC: 4A023N8 Measurement of Cardiac Sampling and Pressure, Bilateral, Percutaneous Approach (ICD-10-PCS; 2021-10-19)
PROC: B211YZZ Fluoroscopy of Multiple Coronary Arteries using Other Contrast (ICD-10-PCS; 2021-10-19)
PROC: B215YZZ Fluoroscopy of Left Heart using Other Contrast (ICD-10-PCS; 2021-10-19)
PROC: 4A033BC Measurement of Arterial Pressure, Coronary, Percutaneous Approach (ICD-10-PCS; 2021-10-19)
PROC: 5A1D70Z Performance of Urinary Filtration, Intermittent, Less than 6 Hours Per Day (ICD-10-PCS; 2021-10-20)
PROC: 30233N1 Transfusion of Nonautologous Red Blood Cells into Peripheral Vein, Percutaneous Approach (ICD-10-PCS; 2021-10-21)
PROC: 5A1D70Z Performance of Urinary Filtration, Intermittent, Less than 6 Hours Per Day (ICD-10-PCS; 2021-10-22)
PROC: 5A1D70Z Performance of Urinary Filtration, Intermittent, Less than 6 Hours Per Day (ICD-10-PCS; 2021-10-25)
DX: I21.4 Non-ST elevation (NSTEMI) myocardial infarction (principal); N18.6 End stage renal disease; J96.00 Acute respiratory failure, unspecified whether with hypoxia or hypercapnia; I50.43 Acute on chronic combined systolic (congestive) and diastolic (congestive) heart failure; I13.2 Hypertensive heart and chronic kidney disease with heart failure and with stage 5 chronic kidney disease, or end stage renal disease; I16.1 Hypertensive emergency; J91.8 Pleural effusion in other conditions classified elsewhere; D63.1 Anemia in chronic kidney disease; Z66 Do not resuscitate; E11.22 Type 2 diabetes mellitus with diabetic chronic kidney disease; E66.9 Obesity, unspecified; E78.5 Hyperlipidemia, unspecified; I27.20 Pulmonary hypertension, unspecified; M89.9 Disorder of bone, unspecified; Z20.822 Contact with and (suspected) exposure to COVID-19; R13.10 Dysphagia, unspecified; D64.9 Anemia, unspecified; M79.89 Other specified soft tissue disorders; I72.4 Aneurysm of artery of lower extremity; Z90.49 Acquired absence of other specified parts of digestive tract; Z99.2 Dependence on renal dialysis; Z68.32 Body mass index [BMI] 32.0-32.9, adult; Z79.84 Long term (current) use of oral hypoglycemic drugs
CPT/HCPCS: 36415; 36600; 70490; 71045; 71250; 75635; 76942; 80048; 80053; 81001; 82805; 82962; 83036; 83880; 83970; 84484; 84550; 85014; 85018; 85025; 85049; 85610; 85730; 86850; 86870; 86900; 86901; 86902; 86922; 87081; 87426; 87493; 90935; 92928; 92929; 93005; 93306; 93460; 93571; 93572; 93926; 93971; 96374; 96375; 97163; 99152; 99153; 99291; C1751; C1769; C1874; C1887; G0378; J0696; J1815; J2250; J2405; J3490; Q9967

== ENCOUNTER 2022-04-19 00:31 | Inpatient (IN) | payer OTHER ==
[~2022-04-19] VITALS: Ht 157.5 cm; Wt 73.7 kg
[~2022-04-19 00:31] MED LIST: ASPI1TAB20 PO; CLOP75TA28 PO; HYDR50TA15 PO; ISO60SRT PO; MET25T PO; NITR0.4S29 SL; PANT40TA2 PO
[2022-04-19] MEDS ORDERED: NITROGLYCERIN 0.4 MG SL TAB SL ONE ×2 (00:38→01:15)
[2022-04-19] MEDS ORDERED: FUROSEMIDE 40 MG/4 ML VIAL IV ONE (01:00)
[2022-04-19 01:37] LABS: Basophils # (auto) 0.1 10 ^3/uL (0-0.2); Eosinophils # (auto) 0.1 10 ^3/uL (0-0.8); Lymphocytes # (auto) 0.4 10 ^3/uL (0.4-5.4)
[2022-04-19 01:39] LABS: Basophils % (auto) 0.6 % (0.0-2.0); Eosinophils % (auto) 0.5 % (0.0-7.0); Hematocrit 26.4 % (36.0-46.0); Hemoglobin 8.9 g/dL (12.2-16.2); Lymphocytes % (auto) 3.3 % (10.0-50.0); Mean Corpuscular Hemoglobin 34.4 pg (28.0-32.0); Mean Corpuscular Hgb Conc. 33.6 g/dL (32.0-36.0); Mean Corpuscular Volume 102.4 fL (80.0-100.0); Monocytes # (auto) 0.5 10 ^3/uL (0-1.3); Monocytes % (auto) 4.3 % (0.0-12.0); Neutrophils # (auto) 11.7 10 ^3/uL (1.6-8.6); Neutrophils % (auto) 91.3 % (37.0-80.0); Red Blood Cells 2.58 10^6/uL (4.0-5.20); Red Cell Distribution Width 15.5 % (11.8-14.3); White Blood Cell 12.8 10^3/uL (4.4-10.8)
[2022-04-19 01:53] VITALS: BP 177/64
[2022-04-19 01:59] LABS: Calcium 9.4 mg/dL (8.5-10.1)
[2022-04-19 02:02] LABS: Albumin 3.4 g/dL (3.4-5.0); BUN/Creatinine Ratio 7.5
[2022-04-19 02:05] LABS: Bilirubin, Total 0.6 mg/dL (0.2-1.0); Total Protein 7.3 g/dL (6.4-8.2)
[2022-04-19 02:17] LABS: Potassium 6.8 mmol/L (3.5-5.1)
[2022-04-19 02:19] VITALS: BP 177/64
[2022-04-19] MEDS ORDERED: CALCIUM GLUC 1,000mg/50ml-NS 50 ML IV ONE (02:30)
[2022-04-19] MEDS ORDERED: ALBUTEROL SULF 2.5 MG/0.5ML(0.5%) NEB SOLN NEB ONE (02:30)
[2022-04-19] MEDS ORDERED: SODIUM ZIRCONIUM CYCL 10 GM PAK PO ONE (02:30)
[2022-04-19] MEDS ORDERED: ONDANSETRON HCL 4 MG/2 ML VIAL IV PRN (06:30)
[2022-04-19] MEDS ORDERED: MORPHINE SULFATE INJ 2 MG/ml SYRG IV PRN (06:30)
[2022-04-19] MEDS ORDERED: NITROGLYCERIN 0.4 MG SL TAB SL PRN (06:30)
[2022-04-19] MEDS ORDERED: ACETAMINOPHEN 325 MG TAB PO PRN (06:30)
[2022-04-19] MEDS ORDERED: DEXTROSE (50%) 50ML SYRG IV PRN (06:30)
[2022-04-19] MEDS: METOPROLOL TARTRATE 25 MG TAB PO SCH ×2 (09:27→22:19)
[2022-04-19] MEDS: hydrALAZINE HCL 25 MG TAB PO SCH ×2 (09:27→22:18)
[2022-04-19] MEDS ORDERED: ALBUMIN 25% 100 ML IV PRN (09:45)
[2022-04-19] MEDS ORDERED: SODIUM CHL 0.9% 1000 ML BAG XX ONE (09:45)
[2022-04-19] MEDS: CLOPIDOGREL BISULFATE 75 MG TAB PO SCH (09:48)
[2022-04-19] MEDS: PANTOPRAZOLE 40 MG TAB PO SCH (09:48)
[2022-04-19] MEDS: ASPirin 81 mg TAB PO SCH (09:48)
[2022-04-19] MEDS: ACCU-CHEK COMFORT CURVE STRIP VI SCH ×2 (12:00→18:13)
[2022-04-19] MEDS ORDERED: GABAPENTIN 300 MG CAP PO SCH (12:09)
[2022-04-19] MEDS: InsuLIN REG 1unit/0.01ml Soln (100units/ml) SC SCH ×2 (12:44→18:31)
[2022-04-19] MEDS: levoFLOXacin 500MG 100 ML IV SCH (17:58)
[2022-04-19] MEDS ORDERED: EPOETIN ALFA-EPBX 10,000 UNIT/1ML VIAL SC ONE (21:00)
[2022-04-19] MEDS ORDERED: GABAPENTIN 100 MG CAP PO SCH (22:00)
[2022-04-19] MEDS: ATORVASTATIN 20 MG TAB PO SCH (22:18)
[2022-04-19 23:45] VITALS: BP 151/53
[2022-04-20 00:27] VITALS: BP 151/53
[2022-04-20] MEDS: ACCU-CHEK COMFORT CURVE STRIP VI SCH ×5 (00:39→23:39)
[2022-04-20] MEDS: InsuLIN REG 1unit/0.01ml Soln (100units/ml) SC SCH ×5 (00:45→23:40)
[2022-04-20 05:00] VITALS: BP 136/47
[2022-04-20 05:42] LABS: Eosinophils # (auto) 0.1 10 ^3/uL (0-0.8)
[2022-04-20 05:47] LABS: Basophils # (auto) 0.1 10 ^3/uL (0-0.2); Basophils % (auto) 0.8 % (0.0-2.0); Eosinophils % (auto) 1.8 % (0.0-7.0); Hematocrit 25.1 % (36.0-46.0); Hemoglobin 8.6 g/dL (12.2-16.2); Lymphocytes # (auto) 0.7 10 ^3/uL (0.4-5.4); Lymphocytes % (auto) 10.4 % (10.0-50.0); Mean Corpuscular Hemoglobin 34.8 pg (28.0-32.0); Mean Corpuscular Hgb Conc. 34.3 g/dL (32.0-36.0); Mean Corpuscular Volume 101.6 fL (80.0-100.0); Monocytes # (auto) 0.4 10 ^3/uL (0-1.3); Monocytes % (auto) 6.8 % (0.0-12.0); Neutrophils # (auto) 5.1 10 ^3/uL (1.6-8.6); Neutrophils % (auto) 80.2 % (37.0-80.0); Nucleated Red Blood Cells % 0.1 %; Red Blood Cells 2.47 10^6/uL (4.0-5.20); Red Cell Distribution Width 15.3 % (11.8-14.3); White Blood Cell 6.4 10^3/uL (4.4-10.8)
[2022-04-20 06:01] LABS: Potassium 4.5 mmol/L (3.5-5.1)
[2022-04-20 06:26] LABS: Albumin 2.8 g/dL (3.4-5.0); BUN/Creatinine Ratio 7.5; Calcium 9.2 mg/dL (8.5-10.1)
[2022-04-20 06:29] LABS: Bilirubin, Total 0.5 mg/dL (0.2-1.0); Total Protein 6.5 g/dL (6.4-8.2)
[2022-04-20 09:00] VITALS: BP 160/55
[2022-04-20] MEDS: hydrALAZINE HCL 25 MG TAB PO SCH ×3 (09:28→22:25)
[2022-04-20] MEDS: ASPirin 81 mg TAB PO SCH (09:28)
[2022-04-20] MEDS: PANTOPRAZOLE 40 MG TAB PO SCH (09:29)
[2022-04-20] MEDS: CLOPIDOGREL BISULFATE 75 MG TAB PO SCH (09:29)
[2022-04-20] MEDS: METOPROLOL TARTRATE 25 MG TAB PO SCH ×2 (09:29→22:26)
[2022-04-20] MEDS: GABAPENTIN 300 MG CAP PO SCH (09:29)
[2022-04-20] MEDS ORDERED: IOHEXOL 350 MG/ML 100ML IJ ONE ×2 (09:32→19:12)
[2022-04-20] MEDS ORDERED: FUROSEMIDE 40 MG TAB PO ONE (11:15)
[2022-04-20] MEDS ORDERED: LOSARTAN POTASSIUM 25 MG TAB PO ONE (11:15)
[2022-04-20] MEDS ORDERED: ATOR40TA52 PO (12:58)
[2022-04-20] MEDS ORDERED: HYDR50TA15 PO (12:58)
[2022-04-20] MEDS ORDERED: METO1TAB77 PO (12:58)
[2022-04-20] MEDS ORDERED: GABA100C9 PO (12:58)
[2022-04-20] MEDS ORDERED: CLOP75TA70 PO (12:58)
[2022-04-20] MEDS ORDERED: SEVE800T8 PO (12:58)
[2022-04-20] MEDS ORDERED: INSU1INJ4 SC (12:58)
[2022-04-20] MEDS ORDERED: AMLO-489 PO (12:58)
[2022-04-20 13:00] VITALS: BP 160/49
[2022-04-20 16:26] VITALS: BP 157/56
[2022-04-20] MEDS ORDERED: LIDOCAINE 1% (LOCAL ANESTH.) PF 5ml SDV ID ONE (17:30)
[2022-04-20 22:00] VITALS: BP 123/54
[2022-04-20] MEDS: ATORVASTATIN 20 MG TAB PO SCH (22:24)
[2022-04-21] VITALS (7 sets, daily range): BP systolic 149–179; BP diastolic 49–88
[2022-04-21] MEDS ORDERED: hydrALAZINE HCL 20 MG/ML VL IV PRN (05:30)
[2022-04-21] MEDS: ACCU-CHEK COMFORT CURVE STRIP VI SCH ×3 (05:34→18:08)
[2022-04-21] MEDS: InsuLIN REG 1unit/0.01ml Soln (100units/ml) SC SCH ×3 (05:35→18:00)
[2022-04-21] MEDS: hydrALAZINE HCL 25 MG TAB PO SCH ×2 (06:00→14:00)
[2022-04-21 06:20] LABS: BUN/Creatinine Ratio 8.3; Calcium 8.8 mg/dL (8.5-10.1); Potassium 5.2 mmol/L (3.5-5.1)
[2022-04-21] MEDS ORDERED: SODIUM CHL 0.9% 1000 ML BAG XX ONE (07:00)
[2022-04-21] MEDS: CLOPIDOGREL BISULFATE 75 MG TAB PO SCH (08:43)
[2022-04-21] MEDS: PANTOPRAZOLE 40 MG TAB PO SCH (08:43)
[2022-04-21] MEDS: GABAPENTIN 300 MG CAP PO SCH (08:45)
[2022-04-21] MEDS: ASPirin 81 mg TAB PO SCH (08:47)
[2022-04-21] MEDS ORDERED: FUROSEMIDE 40 MG TAB PO SCH (10:00)
[2022-04-21] MEDS ORDERED: LOSARTAN POTASSIUM 25 MG TAB PO SCH (10:00)
[2022-04-21] MEDS: METOPROLOL TARTRATE 25 MG TAB PO SCH (10:06)
[2022-04-21] MEDS ORDERED: LOSA-39 PO ×2 (10:09→15:38)
[2022-04-21] MEDS ORDERED: FURO40TA4 PO (10:09)
[2022-04-21] MEDS ORDERED: LEVO750T8 PO (10:10)
[2022-04-21] MEDS ORDERED: METO1TAB77 PO (11:04)
[2022-04-21] MEDS ORDERED: AMLO-489 PO (11:04)
[2022-04-21] MEDS ORDERED: CLON0.1T PO ×2 (11:07→15:41)
[2022-04-21] MEDS ORDERED: FURO80TA3 PO (15:39)
[2022-04-21] MEDS ORDERED: LEVO500T31 PO (15:41)
[2022-04-21] MEDS: levoFLOXacin 500MG 100 ML IV SCH (17:52)
== END 2022-04-21 18:36 | disposition home or self-care (01) | DRG 291 ==
LOC: EDBD 00:31 → EDUNIT# 00:31 → ER 00:40 → OVERFLOW 06:29 → TELE-WESTW 23:20
PROVIDERS: ADMIT Nurse Practitioner; ATTEND Internal Medicine Nephrology
PROC: 5A1D70Z Performance of Urinary Filtration, Intermittent, Less than 6 Hours Per Day (ICD-10-PCS; principal; 2022-04-19)
PROC: 5A09357 Assistance with Respiratory Ventilation, Less than 24 Consecutive Hours, Continuous Positive Airway Pressure (ICD-10-PCS; 2022-04-19)
PROC: 5A1D70Z Performance of Urinary Filtration, Intermittent, Less than 6 Hours Per Day (ICD-10-PCS; 2022-04-21)
DX: I13.2 Hypertensive heart and chronic kidney disease with heart failure and with stage 5 chronic kidney disease, or end stage renal disease (principal); I50.33 Acute on chronic diastolic (congestive) heart failure; J96.21 Acute and chronic respiratory failure with hypoxia; N18.6 End stage renal disease; R65.10 Systemic inflammatory response syndrome (SIRS) of non-infectious origin without acute organ dysfunction; I16.1 Hypertensive emergency; I27.20 Pulmonary hypertension, unspecified; D63.1 Anemia in chronic kidney disease; E11.22 Type 2 diabetes mellitus with diabetic chronic kidney disease; E66.9 Obesity, unspecified; E78.5 Hyperlipidemia, unspecified; E87.5 Hyperkalemia; Z20.822 Contact with and (suspected) exposure to COVID-19; I50.82 Biventricular heart failure; Z99.2 Dependence on renal dialysis; Z90.49 Acquired absence of other specified parts of digestive tract; Z68.29 Body mass index [BMI] 29.0-29.9, adult
CPT/HCPCS: 36415; 36600; 71045; 71275; 80048; 80053; 82805; 82962; 83880; 84484; 85025; 87040; 87077; 87186; 90935; 93005; 94640; 94660; 96365; 96375; 99291; G0378; J1815; J1956

== ENCOUNTER 2022-08-28 06:29 | Inpatient (IN) | payer OTHER, MEDICAID ==
[~2022-08-28] VITALS: Ht 157.5 cm; Wt 72.5 kg
[~2022-08-28 06:29] MED LIST changes: +AMLO-489 PO; -ASPI1TAB20 PO; +ATOR40TA52 PO; +CLON0.1T PO; -CLOP75TA28 PO; +CLOP75TA70 PO; +FURO40TA4 PO; +FURO80TA3 PO; +GABA100C9 PO; +INSU1INJ4 SC; -ISO60SRT PO; +LEVO500T31 PO; +LEVO750T8 PO; -MET25T PO; +METO1TAB77 PO; -NITR0.4S29 SL; -PANT40TA2 PO; +SEVE800T8 PO
[2022-08-28 07:21] LABS: Basophils # (auto) 0.1 10 ^3/uL (0-0.2); Basophils % (auto) 0.5 % (0.0-2.0); Eosinophils # (auto) 0.1 10 ^3/uL (0-0.8); Eosinophils % (auto) 0.6 % (0.0-7.0); Hematocrit 30.3 % (36.0-46.0); Hemoglobin 9.7 g/dL (12.2-16.2); Lymphocytes # (auto) 0.6 10 ^3/uL (0.4-5.4); Lymphocytes % (auto) 4.6 % (10.0-50.0); Mean Corpuscular Hemoglobin 31.4 pg (28.0-32.0); Mean Corpuscular Volume 98.2 fL (80.0-100.0); Monocytes # (auto) 0.4 10 ^3/uL (0-1.3); Monocytes % (auto) 3.1 % (0.0-12.0); Neutrophils # (auto) 11.5 10 ^3/uL (1.6-8.6); Neutrophils % (auto) 91.2 % (37.0-80.0); Red Blood Cells 3.09 10^6/uL (4.0-5.20); Red Cell Distribution Width 16.6 % (11.8-14.3); White Blood Cell 12.6 10^3/uL (4.4-10.8)
[2022-08-28] MEDS ORDERED: LORazepam 2MG/ML-1ML VIAL IV ONE (07:30)
[2022-08-28] MEDS ORDERED: FUROSEMIDE 40 MG/4 ML VIAL IV ONE (07:30)
[2022-08-28 07:33] LABS: INR 0.94 (0.9-1.15); Partial Thromboplastin Time 31.6 sec (24.6-33.4)
[2022-08-28 07:45] LABS: Albumin 3.9 g/dL (3.4-5.0); BUN/Creatinine Ratio 8.6; Calcium 10.1 mg/dL (8.5-10.1); Magnesium 2.4 mg/dL (1.6-2.6)
[2022-08-28 07:47] LABS: Bilirubin, Total 0.6 mg/dL (0.2-1.0); Total Protein 7.5 g/dL (6.4-8.2)
[2022-08-28] MEDS ORDERED: SODIUM ZIRCONIUM CYCL 10 GM PAK PO ONE (08:00)
[2022-08-28] MEDS ORDERED: methylPREDNISolone SOD SUCC 125 MG/2 ML VL IV ONE (08:00)
[2022-08-28] MEDS ORDERED: ALBUTEROL SULF 2.5 MG/0.5ML(0.5%) NEB SOLN NEB ONE (08:00)
[2022-08-28] MEDS ORDERED: SODIUM BICARBONATE 8.4% INJ 50ML SYRINGE IV ONE (08:00)
[2022-08-28] MEDS ORDERED: DEXTROSE (50%) 50ML SYRG IV ONE (08:00)
[2022-08-28] MEDS ORDERED: CALCIUM GLUC 1,000mg/50ml-NS 50 ML IV ONE (08:00)
[2022-08-28] MEDS ORDERED: InsuLIN REG 1unit/0.01ml Soln (100units/ml) IV ONE (08:00)
[2022-08-28 08:41] LABS: Urine Bacteria NONE SEEN /hpf (None Seen); Urine Blood Negative /uL (Negative); Urine Specific Gravity 1.009 (1.001-1.035); Urine WBC 2 /hpf (0 - 5)
[2022-08-28] MEDS ORDERED: MORPHINE SULFATE INJ 2 MG/ml SYRG IV PRN (10:15)
[2022-08-28] MEDS ORDERED: NITROGLYCERIN 0.4 MG SL TAB SL PRN (10:15)
[2022-08-28] MEDS ORDERED: AZITHROMYCIN 500MG/ 250ML 250 ML IV ONE (10:15)
[2022-08-28] MEDS ORDERED: cefTRIAXone 1GM/50ML D5W 50 ML IV ONE (10:15)
[2022-08-28 11:04] LABS: Cholesterol 85 mg/dL (< 200)
[2022-08-28 11:07] LABS: HDL Cholesterol 50 mg/dL (40-59); LDL Cholesterol 29 mg/dL (< 100); Triglycerides 94 mg/dL (< 150)
[2022-08-28] MEDS ORDERED: GABAPENTIN 100 MG CAP PO PRN (11:15)
[2022-08-28] MEDS ORDERED: DEXTROSE (50%) 50ML SYRG IV PRN (11:15)
[2022-08-28] MEDS ORDERED: hydrALAZINE HCL 20 MG/ML VL IV PRN (11:15)
[2022-08-28] MEDS ORDERED: cloNIDine HCL 0.1 MG TAB PO PRN (11:15)
[2022-08-28] MEDS: ACCU-CHEK COMFORT CURVE STRIP VI SCH ×3 (12:48→22:37)
[2022-08-28] MEDS: InsuLIN REG 1unit/0.01ml Soln (100units/ml) SC SCH ×3 (12:58→22:40)
[2022-08-28 14:09] LABS: Partial Thromboplastin Time 134.4 sec (24.6-33.4)
[2022-08-28] MEDS: hydrALAZINE HCL 25 MG TAB PO SCH ×2 (14:28→22:00)
[2022-08-28] MEDS: MORPHINE SULFATE INJ 2 MG/ml SYRG IV PRN (15:01)
[2022-08-28] MEDS: SEVELAMER 800 MG TAB PO SCH (17:47)
[2022-08-28] MEDS ORDERED: EPOETIN ALFA-EPBX 4,000 UNIT/ML VIAL SC ONE (21:00)
[2022-08-28] MEDS: METOPROLOL TARTRATE 50 MG TAB PO SCH (22:42)
[2022-08-29] MEDS: hydrALAZINE HCL 25 MG TAB PO SCH ×3 (05:38→21:18)
[2022-08-29 07:03] LABS: Basophils # (auto) 0.1 10 ^3/uL (0-0.2); Hemoglobin 7.5 g/dL (12.2-16.2); Monocytes # (auto) 0.7 10 ^3/uL (0-1.3); Nucleated Red Blood Cells % 0.1 %
[2022-08-29 07:07] LABS: Basophils % (auto) 0.7 % (0.0-2.0); Eosinophils # (auto) 0 10 ^3/uL (0-0.8); Eosinophils % (auto) 0.3 % (0.0-7.0); Hematocrit 22.4 % (36.0-46.0); Lymphocytes % (auto) 7.9 % (10.0-50.0); Mean Corpuscular Hemoglobin 33.3 pg (28.0-32.0); Mean Corpuscular Hgb Conc. 33.5 g/dL (32.0-36.0); Mean Corpuscular Volume 99.2 fL (80.0-100.0); Monocytes % (auto) 5.5 % (0.0-12.0); Neutrophils # (auto) 10.3 10 ^3/uL (1.6-8.6); Neutrophils % (auto) 85.6 % (37.0-80.0); Red Blood Cells 2.26 10^6/uL (4.0-5.20); Red Cell Distribution Width 16.6 % (11.8-14.3); White Blood Cell 12.1 10^3/uL (4.4-10.8)
[2022-08-29] MEDS: ACCU-CHEK COMFORT CURVE STRIP VI SCH ×4 (07:08→21:49)
[2022-08-29 07:10] LABS: Albumin 3.1 g/dL (3.4-5.0); BUN/Creatinine Ratio 7.2; Calcium 9.9 mg/dL (8.5-10.1); Potassium 4.6 mmol/L (3.5-5.1)
[2022-08-29] MEDS: InsuLIN REG 1unit/0.01ml Soln (100units/ml) SC SCH ×4 (07:12→21:49)
[2022-08-29 07:13] LABS: Bilirubin, Total 0.6 mg/dL (0.2-1.0); Total Protein 6.1 g/dL (6.4-8.2)
[2022-08-29] MEDS: SEVELAMER 800 MG TAB PO SCH ×3 (08:24→18:00)
[2022-08-29] MEDS ORDERED: cefTRIAXone 1GM/50ML D5W 50 ML IV SCH (09:00)
[2022-08-29] MEDS: CLOPIDOGREL BISULFATE 75 MG TAB PO SCH (09:58)
[2022-08-29] MEDS ORDERED: ATORVASTATIN 20 MG TAB PO SCH (10:00)
[2022-08-29] MEDS ORDERED: AZITHROMYCIN 500MG/ 250ML 250 ML IV SCH (10:00)
[2022-08-29] MEDS ORDERED: FUROSEMIDE 20 MG/2 ML VIAL IV SCH (10:00)
[2022-08-29] MEDS: PANTOPRAZOLE 40 MG/10 ML VIAL INJ IV SCH (10:17)
[2022-08-29] MEDS: METOPROLOL TARTRATE 50 MG TAB PO SCH ×2 (10:18→21:19)
[2022-08-29] MEDS: amLODIPine BESYLATE 5 MG TAB PO SCH (10:19)
[2022-08-29 11:01] LABS: INR 1.02 (0.9-1.15); Partial Thromboplastin Time 27.9 sec (24.6-33.4)
[2022-08-29] MEDS ORDERED: ACETAMINOPHEN 500 MG TAB PO PRN (12:30)
[2022-08-29] MEDS ORDERED: ASPirin 81 mg TAB PO ONE (12:30)
[2022-08-29] MEDS ORDERED: LORazepam 0.5 MG TAB PO PRN (12:30)
[2022-08-29 17:00] VITALS: BP 161/50
[2022-08-29] MEDS: MORPHINE SULFATE INJ 2 MG/ml SYRG IV PRN (17:09)
[2022-08-29 17:52] VITALS: BP 161/50
[2022-08-29 19:48] VITALS: BP 156/73
[2022-08-29 20:20] VITALS: BP 157/48
[2022-08-29] MEDS: ATORVASTATIN 20 MG TAB PO SCH (21:18)
[2022-08-29 22:00] VITALS: BP 157/48
[2022-08-30] VITALS (7 sets, daily range): BP systolic 113–149; BP diastolic 38–54
[2022-08-30] MEDS: HYDROcodone-ACET 5/325MG TAB PO PRN (02:48)
[2022-08-30] MEDS: hydrALAZINE HCL 25 MG TAB PO SCH ×3 (06:00→22:34)
[2022-08-30] MEDS: ACCU-CHEK COMFORT CURVE STRIP VI SCH ×4 (06:11→22:35)
[2022-08-30] MEDS: InsuLIN REG 1unit/0.01ml Soln (100units/ml) SC SCH ×4 (06:20→22:36)
[2022-08-30 06:27] LABS: Basophils # (auto) 0.1 10 ^3/uL (0-0.2); Basophils % (auto) 0.6 % (0.0-2.0); Eosinophils # (auto) 0.1 10 ^3/uL (0-0.8); Eosinophils % (auto) 1.4 % (0.0-7.0); Hematocrit 22.2 % (36.0-46.0); Hemoglobin 7.3 g/dL (12.2-16.2); Lymphocytes # (auto) 0.7 10 ^3/uL (0.4-5.4); Lymphocytes % (auto) 7.6 % (10.0-50.0); Mean Corpuscular Hemoglobin 32.6 pg (28.0-32.0); Mean Corpuscular Hgb Conc. 32.7 g/dL (32.0-36.0); Mean Corpuscular Volume 99.9 fL (80.0-100.0); Monocytes # (auto) 0.8 10 ^3/uL (0-1.3); Monocytes % (auto) 7.8 % (0.0-12.0); Neutrophils # (auto) 8.1 10 ^3/uL (1.6-8.6); Neutrophils % (auto) 82.6 % (37.0-80.0); Red Blood Cells 2.22 10^6/uL (4.0-5.20); Red Cell Distribution Width 16.8 % (11.8-14.3); White Blood Cell 9.8 10^3/uL (4.4-10.8)
[2022-08-30 06:52] LABS: BUN/Creatinine Ratio 7.8; Calcium 9.5 mg/dL (8.5-10.1); Potassium 5.3 mmol/L (3.5-5.1)
[2022-08-30] MEDS: SEVELAMER 800 MG TAB PO SCH ×3 (08:43→17:55)
[2022-08-30] MEDS: amLODIPine BESYLATE 5 MG TAB PO SCH (10:00)
[2022-08-30] MEDS: METOPROLOL TARTRATE 50 MG TAB PO SCH ×2 (10:00→22:35)
[2022-08-30] MEDS ORDERED: B-COMPLEX W/ C & FOLIC ACID(NEPHROVITE TAB) PO ONE (10:15)
[2022-08-30] MEDS: ASPirin 81 mg TAB PO SCH (10:23)
[2022-08-30] MEDS: PANTOPRAZOLE 40 MG/10 ML VIAL INJ IV SCH (10:23)
[2022-08-30] MEDS: ONDANSETRON HCL 4 MG/2 ML VIAL IV PRN ×2 (10:23→16:55)
[2022-08-30] MEDS: FUROSEMIDE 40 MG TAB PO SCH (10:24)
[2022-08-30] MEDS: CLOPIDOGREL BISULFATE 75 MG TAB PO SCH (10:24)
[2022-08-30] MEDS ORDERED: SODIUM CHL 0.9% 1000 ML BAG XX ONE (15:30)
[2022-08-30] MEDS ORDERED: EPOETIN ALFA-EPBX 10,000 UNIT/1ML VIAL SC ONE (21:00)
[2022-08-30] MEDS: ATORVASTATIN 20 MG TAB PO SCH (22:34)
[2022-08-31 05:00] VITALS: BP 108/44
[2022-08-31] MEDS: hydrALAZINE HCL 25 MG TAB PO SCH ×3 (06:00→22:53)
[2022-08-31] MEDS: ACCU-CHEK COMFORT CURVE STRIP VI SCH ×4 (06:38→22:53)
[2022-08-31] MEDS: InsuLIN REG 1unit/0.01ml Soln (100units/ml) SC SCH ×4 (06:55→22:58)
[2022-08-31 06:57] LABS: Basophils # (auto) 0 10 ^3/uL (0-0.2); Basophils % (auto) 0.3 % (0.0-2.0); Eosinophils # (auto) 0.3 10 ^3/uL (0-0.8); Eosinophils % (auto) 3.8 % (0.0-7.0); Hematocrit 21.1 % (36.0-46.0); Lymphocytes # (auto) 0.5 10 ^3/uL (0.4-5.4); Lymphocytes % (auto) 6.5 % (10.0-50.0); Mean Corpuscular Hemoglobin 33.2 pg (28.0-32.0); Mean Corpuscular Hgb Conc. 32.6 g/dL (32.0-36.0); Mean Corpuscular Volume 101.7 fL (80.0-100.0); Monocytes # (auto) 0.5 10 ^3/uL (0-1.3); Monocytes % (auto) 6.8 % (0.0-12.0); Neutrophils # (auto) 6.4 10 ^3/uL (1.6-8.6); Neutrophils % (auto) 82.6 % (37.0-80.0); Nucleated Red Blood Cells % 0.1 %; Red Blood Cells 2.07 10^6/uL (4.0-5.20); Red Cell Distribution Width 16.3 % (11.8-14.3); White Blood Cell 7.7 10^3/uL (4.4-10.8)
[2022-08-31 06:59] LABS: Potassium 4.9 mmol/L (3.5-5.1)
[2022-08-31 07:01] LABS: BUN/Creatinine Ratio 7.7
[2022-08-31] MEDS: ONDANSETRON HCL 4 MG/2 ML VIAL IV PRN (07:14)
[2022-08-31] MEDS: MORPHINE SULFATE INJ 2 MG/ml SYRG IV PRN (07:15)
[2022-08-31 07:23] LABS: Hemoglobin 6.9 g/dL (12.2-16.2)
[2022-08-31 08:00] VITALS: BP 108/39
[2022-08-31] MEDS: SEVELAMER 800 MG TAB PO SCH ×3 (08:21→17:44)
[2022-08-31] MEDS: METOPROLOL TARTRATE 50 MG TAB PO SCH ×2 (10:00→22:53)
[2022-08-31] MEDS: amLODIPine BESYLATE 5 MG TAB PO SCH (10:00)
[2022-08-31] MEDS: ASPirin 81 mg TAB PO SCH (10:17)
[2022-08-31] MEDS: CLOPIDOGREL BISULFATE 75 MG TAB PO SCH (10:17)
[2022-08-31] MEDS: PANTOPRAZOLE 40 MG/10 ML VIAL INJ IV SCH (10:17)
[2022-08-31] MEDS: B-COMPLEX W/ C & FOLIC ACID(NEPHROVITE TAB) PO SCH (10:17)
[2022-08-31] MEDS: FUROSEMIDE 40 MG TAB PO SCH (10:19)
[2022-08-31 12:00] VITALS: BP 131/48
[2022-08-31 16:00] VITALS: BP 128/55
[2022-08-31 19:50] VITALS: BP 144/36
[2022-08-31] MEDS: ATORVASTATIN 20 MG TAB PO SCH (22:53)
[2022-08-31] MEDS: HYDROcodone-ACET 5/325MG TAB PO PRN (22:59)
[2022-08-31 23:26] VITALS: BP 144/36
[2022-09-01] VITALS (10 sets, daily range): BP systolic 119–171; BP diastolic 35–68
[2022-09-01] MEDS: hydrALAZINE HCL 25 MG TAB PO SCH ×3 (06:25→23:09)
[2022-09-01] MEDS: ACCU-CHEK COMFORT CURVE STRIP VI SCH ×4 (06:26→23:11)
[2022-09-01] MEDS: ONDANSETRON HCL 4 MG/2 ML VIAL IV PRN (06:26)
[2022-09-01] MEDS: InsuLIN REG 1unit/0.01ml Soln (100units/ml) SC SCH ×4 (06:27→22:00)
[2022-09-01] MEDS ORDERED: SODIUM CHL 0.9% 1000 ML BAG XX ONE (07:00)
[2022-09-01] MEDS: SEVELAMER 800 MG TAB PO SCH ×3 (08:54→23:09)
[2022-09-01] MEDS: METOPROLOL TARTRATE 50 MG TAB PO SCH ×2 (10:00→23:10)
[2022-09-01] MEDS: B-COMPLEX W/ C & FOLIC ACID(NEPHROVITE TAB) PO SCH (10:00)
[2022-09-01] MEDS: amLODIPine BESYLATE 5 MG TAB PO SCH (10:00)
[2022-09-01] MEDS: FUROSEMIDE 40 MG TAB PO SCH (10:00)
[2022-09-01] MEDS ORDERED: PROMETHAZINE HCL 25 MG/ML 1ML IV PRN (10:30)
[2022-09-01] MEDS ORDERED: DOCUSATE SOD 100 MG CAP PO ONE (10:30)
[2022-09-01] MEDS ORDERED: LACTULOSE 20Gm/30ML SOLN PO ONE (10:30)
[2022-09-01] MEDS: PANTOPRAZOLE 40 MG/10 ML VIAL INJ IV SCH (10:55)
[2022-09-01] MEDS: CLOPIDOGREL BISULFATE 75 MG TAB PO SCH (11:27)
[2022-09-01] MEDS: ASPirin 81 mg TAB PO SCH (11:27)
[2022-09-01] MEDS ORDERED: EPOETIN ALFA-EPBX 4,000 UNIT/ML VIAL SC ONE (21:00)
[2022-09-01] MEDS: ATORVASTATIN 20 MG TAB PO SCH (23:09)
[2022-09-02 05:00] VITALS: BP 147/47
[2022-09-02] MEDS: HYDROcodone-ACET 5/325MG TAB PO PRN (06:33)
[2022-09-02] MEDS: InsuLIN REG 1unit/0.01ml Soln (100units/ml) SC SCH ×2 (06:34→12:15)
[2022-09-02] MEDS: hydrALAZINE HCL 25 MG TAB PO SCH ×2 (06:34→14:20)
[2022-09-02] MEDS: ACCU-CHEK COMFORT CURVE STRIP VI SCH ×2 (06:34→12:12)
[2022-09-02 09:00] VITALS: BP 116/21
[2022-09-02] MEDS: ASPirin 81 mg TAB PO SCH (09:33)
[2022-09-02] MEDS: PANTOPRAZOLE 40 MG/10 ML VIAL INJ IV SCH (09:33)
[2022-09-02] MEDS: FUROSEMIDE 40 MG TAB PO SCH (09:33)
[2022-09-02] MEDS: CLOPIDOGREL BISULFATE 75 MG TAB PO SCH (09:34)
[2022-09-02] MEDS: amLODIPine BESYLATE 5 MG TAB PO SCH (09:34)
[2022-09-02] MEDS: METOPROLOL TARTRATE 50 MG TAB PO SCH (09:34)
[2022-09-02] MEDS: SEVELAMER 800 MG TAB PO SCH ×2 (10:15→12:17)
[2022-09-02 10:22] VITALS: BP 116/32
[2022-09-02] MEDS: B-COMPLEX W/ C & FOLIC ACID(NEPHROVITE TAB) PO SCH (10:41)
[2022-09-02 13:00] VITALS: BP 127/43
== END 2022-09-02 15:45 | disposition home health service (06) | DRG 291 ==
LOC: ER 06:29 → EDBD 06:29 → TELE 10:39 → TELE-E-ADS 08-29 16:07 → TELE-CENTR 08-29 20:35
PROVIDERS: ADMIT Registered Nurse; ATTEND Internal Medicine
PROC: 5A1D70Z Performance of Urinary Filtration, Intermittent, Less than 6 Hours Per Day (ICD-10-PCS; 2022-08-28)
PROC: 5A1D70Z Performance of Urinary Filtration, Intermittent, Less than 6 Hours Per Day (ICD-10-PCS; 2022-08-30)
PROC: 30233N1 Transfusion of Nonautologous Red Blood Cells into Peripheral Vein, Percutaneous Approach (ICD-10-PCS; principal; 2022-09-01)
PROC: 5A1D70Z Performance of Urinary Filtration, Intermittent, Less than 6 Hours Per Day (ICD-10-PCS; 2022-09-01)
DX: I13.2 Hypertensive heart and chronic kidney disease with heart failure and with stage 5 chronic kidney disease, or end stage renal disease (principal); I50.33 Acute on chronic diastolic (congestive) heart failure; J96.20 Acute and chronic respiratory failure, unspecified whether with hypoxia or hypercapnia; N18.6 End stage renal disease; Z20.822 Contact with and (suspected) exposure to COVID-19; E78.5 Hyperlipidemia, unspecified; D63.1 Anemia in chronic kidney disease; E87.5 Hyperkalemia; E66.01 Morbid (severe) obesity due to excess calories; E87.6 Hypokalemia; F41.9 Anxiety disorder, unspecified; I25.10 Atherosclerotic heart disease of native coronary artery without angina pectoris; K59.00 Constipation, unspecified; E11.22 Type 2 diabetes mellitus with diabetic chronic kidney disease; M89.8X9 Other specified disorders of bone, unspecified site; Z95.5 Presence of coronary angioplasty implant and graft; Z83.3 Family history of diabetes mellitus; Z99.2 Dependence on renal dialysis; Z68.29 Body mass index [BMI] 29.0-29.9, adult; Z90.49 Acquired absence of other specified parts of digestive tract
CPT/HCPCS: 36415; 36600; 71045; 80048; 80053; 80061; 81001; 82805; 82962; 83036; 83735; 83880; 84132; 84443; 84484; 85025; 85610; 85730; 86850; 86870; 86900; 86901; 86922; 87040; 87086; 87426; 90935; 93005; 94644; 96365; 96375; 97110; 97116; 97163; 99291; C9113; G0378; J0696; J1815; J2405

== ENCOUNTER 2022-10-04 07:20 | Inpatient (IN) | payer OTHER, MEDICAID ==
[~2022-10-04] VITALS: Ht 157.5 cm; Wt 74.5 kg
[2022-10-04] MEDS ORDERED: ONDANSETRON HCL 4 MG/2 ML VIAL IV ONE (07:45)
[2022-10-04 07:54] LABS: Basophils # (auto) 0.1 10 ^3/uL (0-0.2); Basophils % (auto) 0.5 % (0.0-2.0); Eosinophils # (auto) 0.1 10 ^3/uL (0-0.8); Hematocrit 26.1 % (36.0-46.0); Hemoglobin 8.6 g/dL (12.2-16.2); Lymphocytes # (auto) 0.6 10 ^3/uL (0.4-5.4); Lymphocytes % (auto) 5.5 % (10.0-50.0); Mean Corpuscular Hgb Conc. 32.7 g/dL (32.0-36.0); Mean Corpuscular Volume 97.7 fL (80.0-100.0); Monocytes # (auto) 0.6 10 ^3/uL (0-1.3); Monocytes % (auto) 5.3 % (0.0-12.0); Neutrophils # (auto) 10.1 10 ^3/uL (1.6-8.6); Neutrophils % (auto) 87.7 % (37.0-80.0); Red Blood Cells 2.68 10^6/uL (4.0-5.20); Red Cell Distribution Width 16.9 % (11.8-14.3); White Blood Cell 11.5 10^3/uL (4.4-10.8)
[2022-10-04 08:29] LABS: Potassium 5.1 mmol/L (3.5-5.1)
[2022-10-04 08:30] LABS: Albumin 3.3 g/dL (3.4-5.0); BUN/Creatinine Ratio 7.9; Bilirubin, Total 0.6 mg/dL (0.2-1.0); Calcium 9.6 mg/dL (8.5-10.1); Magnesium 2.2 mg/dL (1.6-2.6); Total Protein 6.7 g/dL (6.4-8.2)
[2022-10-04] MEDS ORDERED: ACETAMINOPHEN 325 MG TAB PO ONE (09:45)
[2022-10-04] MEDS ORDERED: ACETAMINOPHEN 325 MG TAB PO PRN (12:15)
[2022-10-04] MEDS ORDERED: DOCUSATE SOD 100 MG CAP PO PRN (12:15)
[2022-10-04] MEDS ORDERED: DEXTROSE (50%) 50ML SYRG IV PRN (12:15)
[2022-10-04] MEDS ORDERED: MAALOX PLUS or MAALOX 30 ML PO PRN (12:15)
[2022-10-04] MEDS: ACCU-CHEK COMFORT CURVE STRIP VI SCH ×2 (19:12→21:45)
[2022-10-04] MEDS: InsuLIN REG 1unit/0.01ml Soln (100units/ml) SC SCH ×2 (19:12→21:57)
[2022-10-04] MEDS: HYDROcodone-ACET 5/325MG TAB PO PRN (19:13)
[2022-10-05] VITALS (9 sets, daily range): BP systolic 146–180; BP diastolic 53–102
[2022-10-05] MEDS: HYDROmorphone HCL 2 MG/ML VL/or syr IV PRN ×2 (00:33→01:11)
[2022-10-05] MEDS: ACCU-CHEK COMFORT CURVE STRIP VI SCH ×6 (01:10→21:51)
[2022-10-05] MEDS: InsuLIN REG 1unit/0.01ml Soln (100units/ml) SC SCH ×6 (01:11→22:01)
[2022-10-05] MEDS: HYDROcodone-ACET 5/325MG TAB PO PRN ×2 (06:28→12:30)
[2022-10-05] MEDS ORDERED: SODIUM CHL 0.9% 1000 ML BAG XX ONE (07:00)
[2022-10-05] MEDS: ONDANSETRON HCL 4 MG/2 ML VIAL IV PRN ×2 (10:22→17:42)
[2022-10-05] MEDS ORDERED: DEXTROSE (50%) 50ML SYRG IV PRN (11:15)
[2022-10-05] MEDS ORDERED: METOPROLOL SUCCINATE XL 50 MG TAB PO ONE (11:15)
[2022-10-05] MEDS ORDERED: amLODIPine BESYLATE 5 MG TAB PO ONE (11:15)
[2022-10-05 11:48] LABS: Basophils # (auto) 0.1 10 ^3/uL (0-0.2); Eosinophils # (auto) 0.2 10 ^3/uL (0-0.8); Hematocrit 24.3 % (36.0-46.0); Hemoglobin 8.1 g/dL (12.2-16.2); Lymphocytes # (auto) 0.7 10 ^3/uL (0.4-5.4); Monocytes # (auto) 0.6 10 ^3/uL (0-1.3); Neutrophils # (auto) 5.3 10 ^3/uL (1.6-8.6); Neutrophils % (auto) 77.6 % (37.0-80.0); Red Cell Distribution Width 16.5 % (11.8-14.3); White Blood Cell 6.8 10^3/uL (4.4-10.8)
[2022-10-05 11:50] LABS: Eosinophils % (auto) 2.7 % (0.0-7.0); Lymphocytes % (auto) 10.2 % (10.0-50.0); Mean Corpuscular Hemoglobin 32.7 pg (28.0-32.0); Mean Corpuscular Hgb Conc. 33.3 g/dL (32.0-36.0); Mean Corpuscular Volume 98.3 fL (80.0-100.0); Monocytes % (auto) 8.5 % (0.0-12.0); Nucleated Red Blood Cells % 0.2 %; Red Blood Cells 2.47 10^6/uL (4.0-5.20)
[2022-10-05] MEDS: SEVELAMER 800 MG TAB PO SCH ×2 (12:17→17:50)
[2022-10-05 15:23] LABS: Anion Gap 10 (5-15); BUN/Creatinine Ratio 6.6; Blood Urea Nitrogen 31 mg/dL (7-18); Carbon Dioxide 31 mmol/L (21-32); Chloride 100 mmol/L (98-107); GFR African American 12 mL/min; GFR Non-African American 10 mL/min; Glucose 142 mg/dL (74-106); Potassium 3.8 mmol/L (3.5-5.1); Sodium 141 mmol/L (136-145)
[2022-10-05 15:24] LABS: Calcium 8.9 mg/dL (8.5-10.1)
[2022-10-05] MEDS ORDERED: EPOETIN ALFA-EPBX 4,000 UNIT/ML VIAL SC ONE (21:00)
[2022-10-05] MEDS: hydrALAZINE HCL 25 MG TAB PO SCH (21:51)
[2022-10-05] MEDS ORDERED: ATORVASTATIN 20 MG TAB PO SCH (22:00)
[2022-10-06] MEDS: HYDROcodone-ACET 5/325MG TAB PO PRN (02:43)
[2022-10-06 05:00] VITALS: BP 148/45
[2022-10-06] MEDS: hydrALAZINE HCL 25 MG TAB PO SCH ×2 (06:27→14:35)
[2022-10-06] MEDS: InsuLIN REG 1unit/0.01ml Soln (100units/ml) SC SCH ×3 (06:27→17:00)
[2022-10-06] MEDS: ACCU-CHEK COMFORT CURVE STRIP VI SCH ×3 (06:27→17:00)
[2022-10-06 07:06] LABS: Basophils # (auto) 0.1 10 ^3/uL (0-0.2); Eosinophils # (auto) 0.2 10 ^3/uL (0-0.8); Eosinophils % (auto) 2.9 % (0.0-7.0); Hemoglobin 7.7 g/dL (12.2-16.2); Lymphocytes # (auto) 0.5 10 ^3/uL (0.4-5.4); Monocytes # (auto) 0.6 10 ^3/uL (0-1.3); Neutrophils # (auto) 5.7 10 ^3/uL (1.6-8.6); White Blood Cell 7.1 10^3/uL (4.4-10.8)
[2022-10-06 07:09] LABS: Basophils % (auto) 0.9 % (0.0-2.0); Hematocrit 22.9 % (36.0-46.0); Lymphocytes % (auto) 6.7 % (10.0-50.0); Mean Corpuscular Hemoglobin 33.1 pg (28.0-32.0); Mean Corpuscular Hgb Conc. 33.6 g/dL (32.0-36.0); Mean Corpuscular Volume 98.5 fL (80.0-100.0); Monocytes % (auto) 8.7 % (0.0-12.0); Neutrophils % (auto) 80.8 % (37.0-80.0); Nucleated Red Blood Cells % 0.1 %; Red Blood Cells 2.32 10^6/uL (4.0-5.20); Red Cell Distribution Width 16.1 % (11.8-14.3)
[2022-10-06 07:37] LABS: BUN/Creatinine Ratio 6.8; Calcium 8.9 mg/dL (8.5-10.1); Potassium 4.1 mmol/L (3.5-5.1)
[2022-10-06 08:00] VITALS: BP 162/62
[2022-10-06] MEDS: SEVELAMER 800 MG TAB PO SCH ×3 (08:29→18:00)
[2022-10-06] MEDS ORDERED: METOPROLOL SUCCINATE XL 50 MG TAB PO SCH (10:00)
[2022-10-06] MEDS ORDERED: amLODIPine BESYLATE 5 MG TAB PO SCH (10:00)
[2022-10-06] MEDS ORDERED: CLOPIDOGREL BISULFATE 75 MG TAB PO SCH (10:00)
[2022-10-06] MEDS ORDERED: diphenhdrAMINE HCL 25 MG CAP PO PRN (10:30)
[2022-10-06] MEDS ORDERED: diphenhdrAMINE HCL 50 MG/1 ML VL IV ONE (10:30)
[2022-10-06 12:00] VITALS: BP 156/74
[2022-10-06 15:03] VITALS: BP 162/55
[2022-10-06 15:26] VITALS: BP 162/55
[2022-10-06 16:00] VITALS: BP 159/67
== END 2022-10-06 18:45 | disposition home or self-care (01) | DRG 291 ==
LOC: ER 07:20 → EDBD 07:20 → EDUNIT# 07:20 → TELE 12:08 → TELE-EAST 10-05 01:45
PROVIDERS: ADMIT Hospitalist; ATTEND Internal Medicine
PROC: 5A1D70Z Performance of Urinary Filtration, Intermittent, Less than 6 Hours Per Day (ICD-10-PCS; principal; 2022-10-05)
DX: I13.2 Hypertensive heart and chronic kidney disease with heart failure and with stage 5 chronic kidney disease, or end stage renal disease (principal); I50.33 Acute on chronic diastolic (congestive) heart failure; J96.20 Acute and chronic respiratory failure, unspecified whether with hypoxia or hypercapnia; N18.6 End stage renal disease; D63.1 Anemia in chronic kidney disease; E83.39 Other disorders of phosphorus metabolism; J44.9 Chronic obstructive pulmonary disease, unspecified; E66.9 Obesity, unspecified; F41.9 Anxiety disorder, unspecified; I25.10 Atherosclerotic heart disease of native coronary artery without angina pectoris; Z20.822 Contact with and (suspected) exposure to COVID-19; E78.5 Hyperlipidemia, unspecified; E11.22 Type 2 diabetes mellitus with diabetic chronic kidney disease; Z99.2 Dependence on renal dialysis; Z95.5 Presence of coronary angioplasty implant and graft; Z83.3 Family history of diabetes mellitus; Z68.30 Body mass index [BMI] 30.0-30.9, adult; I25.2 Old myocardial infarction
CPT/HCPCS: 36415; 71045; 80048; 80053; 82962; 83735; 83880; 84484; 85025; 87426; 90935; 96374; G0378; J1815; J2405

== ENCOUNTER 2022-10-16 20:46 | Inpatient (IN) | payer OTHER, MEDICAID ==
[~2022-10-16] VITALS: Ht 157.5 cm; Wt 74.0 kg
[2022-10-16 22:00] LABS: Basophils # (auto) 0.1 10 ^3/uL (0-0.2); Basophils % (auto) 0.9 % (0.0-2.0); Eosinophils # (auto) 0.1 10 ^3/uL (0-0.8); Eosinophils % (auto) 0.6 % (0.0-7.0); Hematocrit 23.1 % (36.0-46.0); Lymphocytes # (auto) 0.6 10 ^3/uL (0.4-5.4); Lymphocytes % (auto) 6.4 % (10.0-50.0); Mean Corpuscular Hemoglobin 33.6 pg (28.0-32.0); Mean Corpuscular Hgb Conc. 34.5 g/dL (32.0-36.0); Mean Corpuscular Volume 97.5 fL (80.0-100.0); Monocytes # (auto) 0.5 10 ^3/uL (0-1.3); Monocytes % (auto) 5.5 % (0.0-12.0); Neutrophils # (auto) 7.8 10 ^3/uL (1.6-8.6); Neutrophils % (auto) 86.6 % (37.0-80.0); Red Blood Cells 2.37 10^6/uL (4.0-5.20); Red Cell Distribution Width 16.3 % (11.8-14.3)
[2022-10-16 22:16] LABS: BUN/Creatinine Ratio 7.3; Calcium 9.1 mg/dL (8.5-10.1); Magnesium 2.1 mg/dL (1.6-2.6); Potassium 4.6 mmol/L (3.5-5.1)
[2022-10-16 22:19] LABS: Bilirubin, Total 0.6 mg/dL (0.2-1.0); Total Protein 6.3 g/dL (6.4-8.2)
[2022-10-16 22:24] LABS: INR 1.02 (0.9-1.15); Partial Thromboplastin Time 35.6 sec (24.6-33.4)
[2022-10-16] MEDS ORDERED: AZITHROMYCIN 500MG/ 250ML 250 ML IV ONE (22:30)
[2022-10-16] MEDS ORDERED: HEPARIN DRIP/D5W 100UNITS/ML 250 ML IV SCH (22:30)
[2022-10-16] MEDS ORDERED: DexAMETHasone SOD PHOS 10MG/1ML VIAL INJ IV ONE (22:30)
[2022-10-16] MEDS ORDERED: HEPARIN SODIUM (PORCINE) 5000 UNITS/ML 1ML VIAL IV ONE (22:30)
[2022-10-16] MEDS ORDERED: cefTRIAXone 1GM/50ML D5W 50 ML IV ONE (22:30)
[2022-10-17] MEDS ORDERED: MORPHINE SULFATE INJ 2 MG/ml SYRG IV PRN (01:30)
[2022-10-17] MEDS ORDERED: ONDANSETRON HCL 4 MG/2 ML VIAL IV PRN ×2 (01:30→03:00)
[2022-10-17] MEDS ORDERED: diphenhdrAMINE HCL 50 MG/1 ML VL IV ONE (02:00)
[2022-10-17] MEDS ORDERED: METOPROLOL TARTRATE 1MG/1ML-5ML VIAL IV ONE (02:00)
[2022-10-17] MEDS ORDERED: DEXTROSE (50%) 50ML SYRG IV PRN (03:00)
[2022-10-17] MEDS ORDERED: ATORVASTATIN 20 MG TAB PO ONE (03:00)
[2022-10-17] MEDS ORDERED: NITROGLYCERIN 0.4 MG SL TAB SL PRN (03:00)
[2022-10-17] MEDS ORDERED: FUROSEMIDE 100 MG/10ML VIAL IV ONE (03:00)
[2022-10-17 05:50] LABS: INR 1.04 (0.9-1.15)
[2022-10-17] MEDS: ACCU-CHEK COMFORT CURVE STRIP VI SCH ×4 (06:32→22:24)
[2022-10-17] MEDS: HEPARIN DRIP/D5W 100UNITS/ML 250 ML IV SCH (06:33)
[2022-10-17] MEDS: InsuLIN REG 1unit/0.01ml Soln (100units/ml) SC SCH ×4 (06:40→22:33)
[2022-10-17 06:43] LABS: Urine Bacteria FEW /hpf (None Seen); Urine Blood TRACE /uL (Negative); Urine Specific Gravity 1.011 (1.001-1.035); Urine WBC 3 /hpf (0 - 5)
[2022-10-17 08:03] LABS: Hematocrit 25.9 % (36.0-46.0); Hemoglobin 8.7 g/dL (12.2-16.2); Mean Corpuscular Hemoglobin 33.1 pg (28.0-32.0); Mean Corpuscular Hgb Conc. 33.7 g/dL (32.0-36.0); Mean Corpuscular Volume 98.2 fL (80.0-100.0); Red Blood Cells 2.64 10^6/uL (4.0-5.20); Red Cell Distribution Width 16.4 % (11.8-14.3)
[2022-10-17] MEDS: SEVELAMER 800 MG TAB PO SCH ×3 (08:10→18:00)
[2022-10-17 08:26] LABS: Basophils % (manual) 0 (0.0-2.0); Blast Cells 0; Metamyelocytes % 0; Myelocytes % 0; Promyelocytes % 0; Reactive Lymphocytes 0
[2022-10-17] MEDS: NITROGLYCERIN 50MG/250ML 250 ML IV SCH (09:08)
[2022-10-17 09:47] LABS: Sodium 134 mmol/L (136-145)
[2022-10-17 09:50] LABS: Anion Gap 14 (5-15); BUN/Creatinine Ratio 7.6; Blood Urea Nitrogen 39 mg/dL (7-18); Carbon Dioxide 20 mmol/L (21-32); Chloride 100 mmol/L (98-107); GFR African American 10 mL/min; GFR Non-African American 9 mL/min; Glucose 203 mg/dL (74-106)
[2022-10-17 09:51] LABS: Calcium 9.1 mg/dL (8.5-10.1)
[2022-10-17 09:54] LABS: Potassium 5.7 mmol/L (3.5-5.1)
[2022-10-17] MEDS: METOPROLOL TARTRATE 50 MG TAB PO SCH ×3 (09:57→22:24)
[2022-10-17] MEDS: ASPirin 81 mg TAB PO SCH (10:25)
[2022-10-17] MEDS: CLOPIDOGREL BISULFATE 75 MG TAB PO SCH (10:25)
[2022-10-17] MEDS: PANTOPRAZOLE 40 MG TAB PO SCH (10:26)
[2022-10-17 11:01] LABS: Band Neutrophils % (manual) 2; Eosinophils % (manual) 3 (0-7); Lymphocytes % (manual) 7 (10.0-50.0); Monocytes % (manual) 1 (0-12)
[2022-10-17] MEDS: MORPHINE SULFATE INJ 2 MG/ml SYRG IV PRN (11:47)
[2022-10-17] MEDS ORDERED: SODIUM ZIRCONIUM CYCL 10 GM PAK PO ONE (13:00)
[2022-10-17 15:33] LABS: INR 1.03 (0.9-1.15); Partial Thromboplastin Time 54.6 sec (24.6-33.4)
[2022-10-17] MEDS ORDERED: LIDOCAINE 2%HCL (LOCAL ANESTH.) INJ 20ML MDV ONE (16:56)
[2022-10-17] MEDS ORDERED: HEPARIN SODIUM (PORCINE) 5000 UNITS/ML 1ML VIAL ONE (17:01)
[2022-10-17] MEDS ORDERED: ANGIOMAX 250 MG VIAL IV ONE (17:01)
[2022-10-17] MEDS ORDERED: MIDAZOLAM HCL 2MG/2ML 2ml VIAL (1mg/ml) ONE (17:01)
[2022-10-17] MEDS ORDERED: SODIUM CHL 0.9% 0 ML ONE (17:01)
[2022-10-17] MEDS ORDERED: VERAPAMIL 2.5MG/ML INJ 2ML VIAL IV ONE (17:01)
[2022-10-17] MEDS ORDERED: NITROGLYCERIN 50MG/250ML 250 ML IV ONE (17:02)
[2022-10-17] MEDS ORDERED: fentaNYL CITRATE 100 MCG/2 ML VL ONE (17:02)
[2022-10-17] MEDS ORDERED: IODIXANOL 320MG/ML 100ML BTL IV ONE (17:04)
[2022-10-17 22:00] VITALS: BP 170/51
[2022-10-17 22:05] LABS: INR 1.03 (0.9-1.15); Partial Thromboplastin Time 30.7 sec (24.6-33.4)
[2022-10-17] MEDS: ATORVASTATIN 20 MG TAB PO SCH (22:24)
[2022-10-18 03:13] LABS: Basophils # (auto) 0.1 10 ^3/uL (0-0.2); Basophils % (auto) 0.9 % (0.0-2.0); Eosinophils # (auto) 0 10 ^3/uL (0-0.8); Eosinophils % (auto) 0.2 % (0.0-7.0); Hematocrit 22.2 % (36.0-46.0); Hemoglobin 7.2 g/dL (12.2-16.2); Lymphocytes # (auto) 0.7 10 ^3/uL (0.4-5.4); Lymphocytes % (auto) 6.4 % (10.0-50.0); Mean Corpuscular Hgb Conc. 32.7 g/dL (32.0-36.0); Mean Corpuscular Volume 98.1 fL (80.0-100.0); Monocytes # (auto) 1.1 10 ^3/uL (0-1.3); Monocytes % (auto) 9.4 % (0.0-12.0); Neutrophils # (auto) 9.5 10 ^3/uL (1.6-8.6); Neutrophils % (auto) 83.1 % (37.0-80.0); Nucleated Red Blood Cells % 0.1 %; Red Blood Cells 2.26 10^6/uL (4.0-5.20); Red Cell Distribution Width 16.3 % (11.8-14.3); White Blood Cell 11.5 10^3/uL (4.4-10.8)
[2022-10-18 03:24] LABS: INR 1.04 (0.9-1.15); Partial Thromboplastin Time 29.4 sec (24.6-33.4)
[2022-10-18 03:30] LABS: Bilirubin, Total 0.4 mg/dL (0.2-1.0); Calcium 9.3 mg/dL (8.5-10.1)
[2022-10-18 03:36] LABS: BUN/Creatinine Ratio 8.4
[2022-10-18 03:37] LABS: Potassium 6.2 mmol/L (3.5-5.1)
[2022-10-18 05:00] VITALS: BP 176/47
[2022-10-18] MEDS: HEPARIN DRIP/D5W 100UNITS/ML 250 ML IV SCH (05:14)
[2022-10-18] MEDS: InsuLIN REG 1unit/0.01ml Soln (100units/ml) SC SCH ×4 (06:34→23:53)
[2022-10-18] MEDS: ACCU-CHEK COMFORT CURVE STRIP VI SCH ×4 (06:39→23:49)
[2022-10-18] MEDS: hydrALAZINE HCL 20 MG/ML VL IV PRN (06:40)
[2022-10-18] MEDS ORDERED: HYDROcodone-ACET 5/325MG TAB PO ONE (07:00)
[2022-10-18] MEDS ORDERED: SODIUM CHL 0.9% 1000 ML BAG XX ONE (07:00)
[2022-10-18 08:05] VITALS: BP 199/71
[2022-10-18] MEDS: NITROGLYCERIN 50MG/250ML 250 ML IV SCH (08:39)
[2022-10-18 09:23] VITALS: BP 199/71
[2022-10-18] MEDS: METOPROLOL TARTRATE 50 MG TAB PO SCH ×2 (09:27→22:00)
[2022-10-18] MEDS: PANTOPRAZOLE 40 MG TAB PO SCH (09:27)
[2022-10-18] MEDS: SEVELAMER 800 MG TAB PO SCH ×3 (09:27→18:25)
[2022-10-18] MEDS: CLOPIDOGREL BISULFATE 75 MG TAB PO SCH (09:27)
[2022-10-18] MEDS: ASPirin 81 mg TAB PO SCH (09:27)
[2022-10-18] MEDS: MORPHINE SULFATE INJ 2 MG/ml SYRG IV PRN (09:28)
[2022-10-18] MEDS ORDERED: hydrALAZINE HCL 25 MG TAB PO ONE (10:30)
[2022-10-18] MEDS ORDERED: amLODIPine BESYLATE 5 MG TAB PO ONE (10:30)
[2022-10-18] MEDS ORDERED: GABAPENTIN 100 MG CAP PO ONE (10:30)
[2022-10-18] MEDS: LORazepam 0.5 MG TAB PO PRN ×2 (11:17→18:26)
[2022-10-18 13:27] VITALS: BP 146/36
[2022-10-18 16:50] VITALS: BP 165/59
[2022-10-18] MEDS: hydrALAZINE HCL 25 MG TAB PO SCH (19:00)
[2022-10-18] MEDS ORDERED: EPOETIN ALFA-EPBX 10,000 UNIT/1ML VIAL SC ONE (21:00)
[2022-10-18 22:00] VITALS: BP 133/61
[2022-10-18] MEDS: GABAPENTIN 100 MG CAP PO SCH (22:00)
[2022-10-18] MEDS: ATORVASTATIN 20 MG TAB PO SCH (22:00)
[2022-10-19] MEDS: hydrALAZINE HCL 25 MG TAB PO SCH ×3 (03:07→18:12)
[2022-10-19 05:00] VITALS: BP 131/46
[2022-10-19] MEDS: ACCU-CHEK COMFORT CURVE STRIP VI SCH ×4 (06:05→23:39)
[2022-10-19] MEDS: InsuLIN REG 1unit/0.01ml Soln (100units/ml) SC SCH ×4 (06:11→23:52)
[2022-10-19 08:00] VITALS: BP 154/47
[2022-10-19] MEDS: SEVELAMER 800 MG TAB PO SCH ×3 (08:50→18:10)
[2022-10-19 09:00] VITALS: BP 154/47
[2022-10-19] MEDS: PANTOPRAZOLE 40 MG TAB PO SCH (09:59)
[2022-10-19] MEDS: LORazepam 0.5 MG TAB PO PRN ×2 (09:59→18:10)
[2022-10-19] MEDS: GABAPENTIN 100 MG CAP PO SCH ×2 (10:00→22:11)
[2022-10-19] MEDS: METOPROLOL TARTRATE 50 MG TAB PO SCH ×2 (10:01→22:11)
[2022-10-19] MEDS: ASPirin 81 mg TAB PO SCH (10:01)
[2022-10-19] MEDS: CLOPIDOGREL BISULFATE 75 MG TAB PO SCH (10:01)
[2022-10-19] MEDS: amLODIPine BESYLATE 5 MG TAB PO SCH (10:02)
[2022-10-19 13:00] VITALS: BP 158/41
[2022-10-19 17:00] VITALS: BP 151/50
[2022-10-19 22:00] VITALS: BP 171/47
[2022-10-19] MEDS: ATORVASTATIN 20 MG TAB PO SCH (22:10)
[2022-10-19] MEDS: hydrALAZINE HCL 20 MG/ML VL IV PRN (23:53)
[2022-10-19] MEDS: traMADol HCL 50 MG TAB PO PRN (23:54)
[2022-10-20] MEDS: LORazepam 0.5 MG TAB PO PRN (00:57)
[2022-10-20] MEDS: hydrALAZINE HCL 25 MG TAB PO SCH ×2 (03:04→14:49)
[2022-10-20 05:00] VITALS: BP 169/45
[2022-10-20] MEDS: ACCU-CHEK COMFORT CURVE STRIP VI SCH ×2 (05:26→12:20)
[2022-10-20] MEDS: InsuLIN REG 1unit/0.01ml Soln (100units/ml) SC SCH ×2 (05:37→12:27)
[2022-10-20] MEDS ORDERED: SODIUM CHL 0.9% 1000 ML BAG XX ONE (07:30)
[2022-10-20] MEDS: SEVELAMER 800 MG TAB PO SCH ×2 (08:07→12:22)
[2022-10-20 08:52] VITALS: BP 180/55
[2022-10-20] MEDS ORDERED: ASPirin 81 mg TAB PO SCH (10:00)
[2022-10-20] MEDS: traMADol HCL 50 MG TAB PO PRN (10:08)
[2022-10-20] MEDS: METOPROLOL TARTRATE 50 MG TAB PO SCH (12:16)
[2022-10-20] MEDS: CLOPIDOGREL BISULFATE 75 MG TAB PO SCH (12:16)
[2022-10-20] MEDS: PANTOPRAZOLE 40 MG TAB PO SCH (12:17)
[2022-10-20] MEDS: GABAPENTIN 100 MG CAP PO SCH (12:17)
[2022-10-20] MEDS: amLODIPine BESYLATE 5 MG TAB PO SCH (12:24)
[2022-10-20 13:00] VITALS: BP 150/55
[2022-10-20 16:07] VITALS: BP 150/55
[2022-10-20 16:21] VITALS: BP 149/60
[2022-10-20] MEDS ORDERED: EPOETIN ALFA-EPBX 10,000 UNIT/1ML VIAL SC ONE (21:00)
== END 2022-10-20 16:53 | disposition home or self-care (01) | DRG 246 ==
LOC: EDBD 20:46 → ER 20:50 → TELE 10-17 03:05 → TELE-WESTW 10-17 19:31
PROVIDERS: ADMIT Nurse Practitioner; ATTEND Internal Medicine
PROC: 027034Z Dilation of Coronary Artery, One Artery with Drug-eluting Intraluminal Device, Percutaneous Approach (ICD-10-PCS; principal; 2022-10-17)
PROC: B211YZZ Fluoroscopy of Multiple Coronary Arteries using Other Contrast (ICD-10-PCS; 2022-10-17)
PROC: 05HD33Z Insertion of Infusion Device into Right Cephalic Vein, Percutaneous Approach (ICD-10-PCS; 2022-10-17)
PROC: B54MZZA Ultrasonography of Right Upper Extremity Veins, Guidance (ICD-10-PCS; 2022-10-17)
PROC: 5A1D70Z Performance of Urinary Filtration, Intermittent, Less than 6 Hours Per Day (ICD-10-PCS; 2022-10-18)
PROC: 5A1D70Z Performance of Urinary Filtration, Intermittent, Less than 6 Hours Per Day (ICD-10-PCS; 2022-10-20)
DX: I21.4 Non-ST elevation (NSTEMI) myocardial infarction (principal); I50.33 Acute on chronic diastolic (congestive) heart failure; N18.6 End stage renal disease; J18.9 Pneumonia, unspecified organism; I13.2 Hypertensive heart and chronic kidney disease with heart failure and with stage 5 chronic kidney disease, or end stage renal disease; E44.0 Moderate protein-calorie malnutrition; J44.0 Chronic obstructive pulmonary disease with (acute) lower respiratory infection; J96.10 Chronic respiratory failure, unspecified whether with hypoxia or hypercapnia; D63.8 Anemia in other chronic diseases classified elsewhere; D69.6 Thrombocytopenia, unspecified; E11.22 Type 2 diabetes mellitus with diabetic chronic kidney disease; F41.9 Anxiety disorder, unspecified; E87.6 Hypokalemia; I25.10 Atherosclerotic heart disease of native coronary artery without angina pectoris; Z20.822 Contact with and (suspected) exposure to COVID-19; E66.9 Obesity, unspecified; E87.5 Hyperkalemia; E78.5 Hyperlipidemia, unspecified; I27.20 Pulmonary hypertension, unspecified; Z99.2 Dependence on renal dialysis; Z68.29 Body mass index [BMI] 29.0-29.9, adult; Z83.3 Family history of diabetes mellitus; Z90.49 Acquired absence of other specified parts of digestive tract
CPT/HCPCS: 36415; 71045; 80048; 80053; 81001; 82962; 83735; 83880; 84484; 85007; 85025; 85027; 85610; 85730; 86850; 86870; 86880; 86900; 86901; 86906; 87426; 87804; 90935; 92928; 93005; 93306; 93454; 96365; 96366; 96367; 96368; 96372; 96375; 96376; 97110; 97116; 97163; 97530; 99152; 99153; 99291; C1874; G0378; J0696; J1100; J1815; J2250; J2405; Q9967

== ENCOUNTER 2022-10-20 19:39 | Inpatient (IN) | payer OTHER, MEDICAID ==
[~2022-10-20] VITALS: Ht 154.9 cm; Wt 67.4 kg
[2022-10-20 21:02] LABS: Basophils # (auto) 0.1 10 ^3/uL (0-0.2); Basophils % (auto) 0.6 % (0.0-2.0); Eosinophils # (auto) 0.3 10 ^3/uL (0-0.8); Eosinophils % (auto) 3.7 % (0.0-7.0); Hematocrit 24.4 % (36.0-46.0); Hemoglobin 8.1 g/dL (12.2-16.2); Lymphocytes # (auto) 0.4 10 ^3/uL (0.4-5.4); Lymphocytes % (auto) 4.5 % (10.0-50.0); Mean Corpuscular Hemoglobin 32.7 pg (28.0-32.0); Mean Corpuscular Hgb Conc. 33.3 g/dL (32.0-36.0); Mean Corpuscular Volume 98.1 fL (80.0-100.0); Monocytes # (auto) 0.6 10 ^3/uL (0-1.3); Monocytes % (auto) 7.1 % (0.0-12.0); Neutrophils # (auto) 7.4 10 ^3/uL (1.6-8.6); Neutrophils % (auto) 84.1 % (37.0-80.0); Nucleated Red Blood Cells % 0.1 %; Red Blood Cells 2.48 10^6/uL (4.0-5.20); Red Cell Distribution Width 16.2 % (11.8-14.3); White Blood Cell 8.8 10^3/uL (4.4-10.8)
[2022-10-20 21:17] LABS: INR 1.06 (0.9-1.15)
[2022-10-20 21:18] LABS: Calcium 9.1 mg/dL (8.5-10.1); Potassium 4.2 mmol/L (3.5-5.1)
[2022-10-20 21:20] LABS: BUN/Creatinine Ratio 5.8
[2022-10-20 21:23] LABS: Bilirubin, Total 0.6 mg/dL (0.2-1.0); Total Protein 6.6 g/dL (6.4-8.2)
[2022-10-20] MEDS ORDERED: ONDANSETRON HCL 4 MG/2 ML VIAL IV PRN (23:15)
[2022-10-20] MEDS: MORPHINE SULFATE 4 MG/ML SYR/VIAL IV PRN (23:15)
[2022-10-20] MEDS ORDERED: ASPirin 325 MG TAB PO ONE (23:15)
[2022-10-20] MEDS ORDERED: diphenhdrAMINE HCL 50 MG/1 ML VL IV ONE (23:45)
[2022-10-21] MEDS ORDERED: HEPARIN DRIP/D5W 100UNITS/ML 250 ML IV SCH (01:15)
[2022-10-21] MEDS ORDERED: HEPARIN SODIUM (PORCINE) 5000 UNITS/ML 1ML VIAL IV ONE (01:15)
[2022-10-21] MEDS ORDERED: DEXTROSE (50%) 50ML SYRG IV PRN (02:15)
[2022-10-21] MEDS ORDERED: NITROGLYCERIN 0.4 MG SL TAB SL PRN (02:15)
[2022-10-21] MEDS ORDERED: ONDANSETRON HCL 4 MG/2 ML VIAL IV PRN (02:15)
[2022-10-21] MEDS ORDERED: hydrALAZINE HCL 20 MG/ML VL IV PRN (02:15)
[2022-10-21] MEDS ORDERED: AZITHROMYCIN 500MG/ 250ML 250 ML IV ONE (02:15)
[2022-10-21] MEDS ORDERED: ACETAMINOPHEN 325 MG TAB PO PRN (02:15)
[2022-10-21] MEDS ORDERED: MORPHINE SULFATE INJ 2 MG/ml SYRG IV PRN (02:15)
[2022-10-21] MEDS ORDERED: HYDROcodone-ACET 5/325MG TAB PO PRN (02:15)
[2022-10-21] MEDS ORDERED: DOCUSATE SOD 100 MG CAP PO PRN (02:15)
[2022-10-21] MEDS: HEPARIN SODIUM (PORCINE) 5000 UNITS/ML 1ML VIAL SC SCH ×3 (06:00→21:46)
[2022-10-21] MEDS: SODIUM CHLOR 0.9% PF (SALINE LOCK) 10ML VIAL/SYR IV SCH ×3 (06:06→23:24)
[2022-10-21 06:14] LABS: Basophils # (auto) 0.1 10 ^3/uL (0-0.2); Eosinophils # (auto) 0.5 10 ^3/uL (0-0.8); Nucleated Red Blood Cells % 0.1 %
[2022-10-21 06:17] LABS: Eosinophils % (auto) 6.4 % (0.0-7.0); Hematocrit 23.6 % (36.0-46.0); Hemoglobin 8.1 g/dL (12.2-16.2); Lymphocytes # (auto) 0.9 10 ^3/uL (0.4-5.4); Lymphocytes % (auto) 12.6 % (10.0-50.0); Mean Corpuscular Hemoglobin 32.7 pg (28.0-32.0); Mean Corpuscular Hgb Conc. 34.1 g/dL (32.0-36.0); Mean Corpuscular Volume 95.9 fL (80.0-100.0); Monocytes # (auto) 0.7 10 ^3/uL (0-1.3); Monocytes % (auto) 10.6 % (0.0-12.0); Neutrophils # (auto) 4.9 10 ^3/uL (1.6-8.6); Neutrophils % (auto) 69.4 % (37.0-80.0); Red Blood Cells 2.46 10^6/uL (4.0-5.20); Red Cell Distribution Width 16.2 % (11.8-14.3); White Blood Cell 7.1 10^3/uL (4.4-10.8)
[2022-10-21 06:41] LABS: Potassium 4.6 mmol/L (3.5-5.1)
[2022-10-21 06:48] LABS: BUN/Creatinine Ratio 6.1; Bilirubin, Total 0.5 mg/dL (0.2-1.0); Calcium 9.1 mg/dL (8.5-10.1); Total Protein 6.5 g/dL (6.4-8.2)
[2022-10-21] MEDS: ACCU-CHEK COMFORT CURVE STRIP VI SCH ×4 (08:11→21:52)
[2022-10-21] MEDS: InsuLIN REG 1unit/0.01ml Soln (100units/ml) SC SCH ×3 (08:12→17:00)
[2022-10-21] MEDS ORDERED: FUROSEMIDE 40 MG/4 ML VIAL IV SCH (10:00)
[2022-10-21] MEDS ORDERED: FAMOTIDINE (10MG/ML) 2ML VL IV SCH (10:00)
[2022-10-21] MEDS: MORPHINE SULFATE 4 MG/ML SYR/VIAL IV PRN (10:04)
[2022-10-21 10:17] VITALS: BP 180/53
[2022-10-21] MEDS: ASPirin 81 mg TAB PO SCH (11:17)
[2022-10-21] MEDS: MULTIPLE VITAMIN TAB PO SCH (11:17)
[2022-10-21 13:00] VITALS: BP 144/51
[2022-10-21] MEDS ORDERED: CLOPIDOGREL BISULFATE 75 MG TAB PO ONE (13:30)
[2022-10-21] MEDS ORDERED: GABAPENTIN 100 MG CAP PO PRN (14:15)
[2022-10-21 17:03] VITALS: BP 149/46
[2022-10-21] MEDS: FUROSEMIDE 40 MG/4 ML VIAL IV SCH (18:10)
[2022-10-21 20:00] VITALS: BP 143/42
[2022-10-21] MEDS: HUMULIN N SC SCH (21:45)
[2022-10-21] MEDS: hydrALAZINE HCL 25 MG TAB PO SCH (21:47)
[2022-10-21] MEDS: METOPROLOL TARTRATE 50 MG TAB PO SCH (21:47)
[2022-10-21] MEDS ORDERED: GABAPENTIN 100 MG CAP PO SCH (22:00)
[2022-10-21] MEDS ORDERED: ATORVASTATIN 20 MG TAB PO SCH ×2 (22:00)
[2022-10-21] MEDS ORDERED: InsuLIN REG 1unit/0.01ml Soln (100units/ml) SC SCH (22:00)
[2022-10-21 23:01] VITALS: BP 143/42
[2022-10-22 05:07] VITALS: BP 175/56
[2022-10-22] MEDS: FUROSEMIDE 40 MG/4 ML VIAL IV SCH (05:10)
[2022-10-22] MEDS: MORPHINE SULFATE 4 MG/ML SYR/VIAL IV PRN (05:10)
[2022-10-22] MEDS: hydrALAZINE HCL 25 MG TAB PO SCH ×2 (05:11→14:00)
[2022-10-22] MEDS: SODIUM CHLOR 0.9% PF (SALINE LOCK) 10ML VIAL/SYR IV SCH ×2 (05:31→14:06)
[2022-10-22] MEDS: ACCU-CHEK COMFORT CURVE STRIP VI SCH ×2 (06:39→12:30)
[2022-10-22] MEDS: InsuLIN REG 1unit/0.01ml Soln (100units/ml) SC SCH ×2 (06:40→11:30)
[2022-10-22] MEDS: HEPARIN SODIUM (PORCINE) 5000 UNITS/ML 1ML VIAL SC SCH ×2 (06:48→14:14)
[2022-10-22 07:30] VITALS: BP 139/57
[2022-10-22 08:55] VITALS: BP 139/57
[2022-10-22] MEDS ORDERED: amLODIPine BESYLATE 5 MG TAB PO SCH ×2 (10:00)
[2022-10-22] MEDS ORDERED: AZITHROMYCIN 500MG/ 250ML 250 ML IV SCH (10:00)
[2022-10-22] MEDS ORDERED: CLOPIDOGREL BISULFATE 75 MG TAB PO SCH (10:00)
[2022-10-22] MEDS: HUMULIN N SC SCH (10:33)
[2022-10-22] MEDS: ASPirin 81 mg TAB PO SCH (10:40)
[2022-10-22] MEDS: METOPROLOL TARTRATE 50 MG TAB PO SCH (10:40)
[2022-10-22] MEDS: MULTIPLE VITAMIN TAB PO SCH (10:40)
[2022-10-22] MEDS ORDERED: ASPI1TAB20 PO (11:13)
[2022-10-22 11:53] VITALS: BP 139/57
[2022-10-22 13:00] VITALS: BP 124/42
[2022-10-22 13:41] LABS: Basophils # (auto) 0.1 10 ^3/uL (0-0.2); Eosinophils # (auto) 0.1 10 ^3/uL (0-0.8); Eosinophils % (auto) 1.1 % (0.0-7.0); Hemoglobin 7.5 g/dL (12.2-16.2); Lymphocytes # (auto) 0.6 10 ^3/uL (0.4-5.4); Lymphocytes % (auto) 5.6 % (10.0-50.0); Neutrophils # (auto) 8.6 10 ^3/uL (1.6-8.6); Red Cell Distribution Width 16.7 % (11.8-14.3)
[2022-10-22 13:43] LABS: Basophils % (auto) 0.5 % (0.0-2.0); Hematocrit 23.2 % (36.0-46.0); Mean Corpuscular Hemoglobin 32.2 pg (28.0-32.0); Mean Corpuscular Hgb Conc. 32.4 g/dL (32.0-36.0); Mean Corpuscular Volume 99.3 fL (80.0-100.0); Monocytes % (auto) 9.7 % (0.0-12.0); Neutrophils % (auto) 83.1 % (37.0-80.0); Red Blood Cells 2.33 10^6/uL (4.0-5.20); White Blood Cell 10.4 10^3/uL (4.4-10.8)
[2022-10-22 14:05] LABS: Albumin 2.9 g/dL (3.4-5.0); Calcium 8.9 mg/dL (8.5-10.1)
[2022-10-22 14:09] LABS: BUN/Creatinine Ratio 7.1; Bilirubin, Total 0.5 mg/dL (0.2-1.0); Total Protein 6.4 g/dL (6.4-8.2)
[2022-10-22 15:02] LABS: Potassium 6.1 mmol/L (3.5-5.1)
== END 2022-10-22 14:50 | disposition home or self-care (01) | DRG 280 ==
LOC: ER 19:39 → EDBD 19:39 → TELE 10-21 02:34 → TELE-WESTW 10-21 09:41
PROVIDERS: ADMIT Nurse Practitioner Family; ATTEND Nurse Practitioner Family
DX: I21.4 Non-ST elevation (NSTEMI) myocardial infarction (principal); J18.9 Pneumonia, unspecified organism; N18.6 End stage renal disease; E87.1 Hypo-osmolality and hyponatremia; J44.0 Chronic obstructive pulmonary disease with (acute) lower respiratory infection; J81.1 Chronic pulmonary edema; E44.1 Mild protein-calorie malnutrition; I50.30 Unspecified diastolic (congestive) heart failure; J96.10 Chronic respiratory failure, unspecified whether with hypoxia or hypercapnia; I13.2 Hypertensive heart and chronic kidney disease with heart failure and with stage 5 chronic kidney disease, or end stage renal disease; Z20.822 Contact with and (suspected) exposure to COVID-19; D63.1 Anemia in chronic kidney disease; I25.10 Atherosclerotic heart disease of native coronary artery without angina pectoris; I27.20 Pulmonary hypertension, unspecified; E11.22 Type 2 diabetes mellitus with diabetic chronic kidney disease; E78.5 Hyperlipidemia, unspecified; Z68.28 Body mass index [BMI] 28.0-28.9, adult; Z99.81 Dependence on supplemental oxygen; I25.2 Old myocardial infarction; Z83.3 Family history of diabetes mellitus; Z95.5 Presence of coronary angioplasty implant and graft; Z99.2 Dependence on renal dialysis
CPT/HCPCS: 36415; 71045; 80053; 82962; 83036; 83880; 84484; 85025; 85610; 85730; 87081; 87426; 93005; 96365; 96375; 99291; G0378; J1815; J2405; J3490

== ENCOUNTER 2022-10-22 16:16 | Inpatient (IN) | payer OTHER, MEDICAID ==
[~2022-10-22] VITALS: Ht 157.5 cm; Wt 76.7 kg
[~2022-10-22 16:16] MED LIST changes: +ASPI1TAB20 PO
[2022-10-22 17:19] LABS: Basophils # (auto) 0.1 10 ^3/uL (0-0.2); Eosinophils # (auto) 0.2 10 ^3/uL (0-0.8); Hemoglobin 7.6 g/dL (12.2-16.2); Monocytes # (auto) 0.8 10 ^3/uL (0-1.3); Neutrophils # (auto) 6.7 10 ^3/uL (1.6-8.6); Red Cell Distribution Width 16.4 % (11.8-14.3); White Blood Cell 8.4 10^3/uL (4.4-10.8)
[2022-10-22 17:21] LABS: Basophils % (auto) 0.8 % (0.0-2.0); Eosinophils % (auto) 2.2 % (0.0-7.0); Hematocrit 22.2 % (36.0-46.0); Lymphocytes # (auto) 0.6 10 ^3/uL (0.4-5.4); Lymphocytes % (auto) 7.7 % (10.0-50.0); Mean Corpuscular Hemoglobin 32.6 pg (28.0-32.0); Mean Corpuscular Hgb Conc. 34.1 g/dL (32.0-36.0); Mean Corpuscular Volume 95.7 fL (80.0-100.0); Monocytes % (auto) 9.4 % (0.0-12.0); Neutrophils % (auto) 79.9 % (37.0-80.0); Red Blood Cells 2.32 10^6/uL (4.0-5.20)
[2022-10-22 19:24] LABS: Anion Gap 10 (5-15); Blood Urea Nitrogen 50 mg/dL (7-18); Calcium 9.2 mg/dL (8.5-10.1); Carbon Dioxide 26 mmol/L (21-32); Chloride 93 mmol/L (98-107); Glucose 157 mg/dL (74-106); Sodium 129 mmol/L (136-145)
[2022-10-22 19:27] LABS: Alanine Aminotransferase < 6 U/L (13-56); Alkaline Phosphatase 54 U/L (45-117); Aspartate Aminotransferase 11 U/L (15-37); BUN/Creatinine Ratio 7.2; Bilirubin, Total 0.5 mg/dL (0.2-1.0); GFR African American 7 mL/min; GFR Non-African American 6 mL/min; Total Protein 6.4 g/dL (6.4-8.2)
[2022-10-22 19:41] LABS: Potassium 5.8 mmol/L (3.5-5.1)
[2022-10-22] MEDS ORDERED: CALCIUM GLUC 1,000mg/50ml-NS 50 ML IV ONE ×2 (20:15→21:45)
[2022-10-22] MEDS ORDERED: SODIUM BICARBONATE 8.4 % INJ 50ML VIAL IV ONE (20:15)
[2022-10-22] MEDS ORDERED: DEXTROSE (50%) 50ML SYRG IV PRN (21:30)
[2022-10-22] MEDS ORDERED: MORPHINE SULFATE INJ 2 MG/ml SYRG IV PRN (21:30)
[2022-10-22] MEDS ORDERED: NITROGLYCERIN 0.4 MG SL TAB SL PRN (21:30)
[2022-10-22] MEDS ORDERED: DEXTROSE (50%) 50ML SYRG IV ONE (21:45)
[2022-10-22] MEDS ORDERED: SODIUM ZIRCONIUM CYCL 10 GM PAK PO ONE (21:45)
[2022-10-22] MEDS ORDERED: ALBUTEROL SULF 2.5 MG/0.5ML(0.5%) NEB SOLN NEB ONE (21:45)
[2022-10-22] MEDS ORDERED: PANTOPRAZOLE 40 MG/10 ML VIAL INJ IV ONE (21:45)
[2022-10-22] MEDS ORDERED: FUROSEMIDE 20 MG/2 ML VIAL IV ONE (21:45)
[2022-10-22] MEDS ORDERED: InsuLIN REG 1unit/0.01ml Soln (100units/ml) IV ONE (21:45)
[2022-10-22] MEDS ORDERED: SODIUM BICARBONATE 8.4% INJ 50ML SYRINGE IV ONE (21:45)
[2022-10-22] MEDS: ACCU-CHEK COMFORT CURVE STRIP VI SCH (22:16)
[2022-10-22] MEDS: InsuLIN REG 1unit/0.01ml Soln (100units/ml) SC SCH (22:18)
[2022-10-22] MEDS: ONDANSETRON HCL 4 MG/2 ML VIAL IV PRN (22:57)
[2022-10-22] MEDS: MORPHINE SULFATE INJ 2 MG/ml SYRG IV PRN (22:59)
[2022-10-23 06:44] LABS: Potassium 5.5 mmol/L (3.5-5.1)
[2022-10-23] MEDS: ACCU-CHEK COMFORT CURVE STRIP VI SCH ×3 (06:45→17:47)
[2022-10-23] MEDS: InsuLIN REG 1unit/0.01ml Soln (100units/ml) SC SCH ×3 (06:45→17:48)
[2022-10-23 07:00] LABS: Albumin 2.8 g/dL (3.4-5.0); BUN/Creatinine Ratio 7.4; Bilirubin, Total 0.5 mg/dL (0.2-1.0); Calcium 8.9 mg/dL (8.5-10.1)
[2022-10-23 07:24] LABS: Basophils # (auto) 0 10 ^3/uL (0-0.2); Basophils % (auto) 0.5 % (0.0-2.0); Eosinophils # (auto) 0.4 10 ^3/uL (0-0.8); Eosinophils % (auto) 4.3 % (0.0-7.0); Hematocrit 20.4 % (36.0-46.0); Lymphocytes # (auto) 0.7 10 ^3/uL (0.4-5.4); Lymphocytes % (auto) 9.2 % (10.0-50.0); Mean Corpuscular Hemoglobin 32.6 pg (28.0-32.0); Mean Corpuscular Hgb Conc. 34.4 g/dL (32.0-36.0); Mean Corpuscular Volume 94.7 fL (80.0-100.0); Monocytes # (auto) 0.9 10 ^3/uL (0-1.3); Neutrophils # (auto) 6.1 10 ^3/uL (1.6-8.6); Nucleated Red Blood Cells % 0.1 %; Red Blood Cells 2.15 10^6/uL (4.0-5.20); Red Cell Distribution Width 16.1 % (11.8-14.3); White Blood Cell 8.2 10^3/uL (4.4-10.8)
[2022-10-23] MEDS ORDERED: PANTOPRAZOLE 40 MG/10 ML VIAL INJ IV SCH (10:00)
[2022-10-23] MEDS: MORPHINE SULFATE INJ 2 MG/ml SYRG IV PRN (12:43)
[2022-10-23] MEDS ORDERED: PANTOPRAZOLE 40 MG TAB PO ONE (14:00)
[2022-10-23] MEDS ORDERED: CLOPIDOGREL BISULFATE 75 MG TAB PO ONE (14:00)
[2022-10-23] MEDS ORDERED: ASPirin 81 mg TAB PO ONE (14:00)
[2022-10-23 23:00] VITALS: BP 158/45
[2022-10-23 23:15] VITALS: BP 148/37
[2022-10-24] VITALS (10 sets, daily range): BP systolic 141–181; BP diastolic 43–65
[2022-10-24] MEDS: METOPROLOL TARTRATE 50 MG TAB PO SCH ×3 (00:37→21:33)
[2022-10-24] MEDS: ATORVASTATIN 20 MG TAB PO SCH ×2 (00:38→21:33)
[2022-10-24] MEDS: ACCU-CHEK COMFORT CURVE STRIP VI SCH ×5 (00:54→21:34)
[2022-10-24] MEDS: InsuLIN REG 1unit/0.01ml Soln (100units/ml) SC SCH ×5 (00:58→21:35)
[2022-10-24] MEDS: ONDANSETRON HCL 4 MG/2 ML VIAL IV PRN (01:35)
[2022-10-24] MEDS: MORPHINE SULFATE INJ 2 MG/ml SYRG IV PRN (01:39)
[2022-10-24 05:46] LABS: BUN/Creatinine Ratio 6.5; Calcium 9.5 mg/dL (8.5-10.1); Potassium 4.9 mmol/L (3.5-5.1)
[2022-10-24 06:07] LABS: Basophils # (auto) 0 10 ^3/uL (0-0.2); Basophils % (auto) 0.5 % (0.0-2.0); Eosinophils # (auto) 0.4 10 ^3/uL (0-0.8); Eosinophils % (auto) 5.6 % (0.0-7.0); Hematocrit 26.6 % (36.0-46.0); Lymphocytes # (auto) 0.5 10 ^3/uL (0.4-5.4); Lymphocytes % (auto) 5.7 % (10.0-50.0); Mean Corpuscular Hemoglobin 31.6 pg (28.0-32.0); Mean Corpuscular Hgb Conc. 33.6 g/dL (32.0-36.0); Mean Corpuscular Volume 93.9 fL (80.0-100.0); Monocytes # (auto) 0.7 10 ^3/uL (0-1.3); Monocytes % (auto) 8.5 % (0.0-12.0); Neutrophils # (auto) 6.4 10 ^3/uL (1.6-8.6); Neutrophils % (auto) 79.7 % (37.0-80.0); Nucleated Red Blood Cells % 0.1 %; Red Blood Cells 2.84 10^6/uL (4.0-5.20); Red Cell Distribution Width 17.3 % (11.8-14.3)
[2022-10-24] MEDS: CLOPIDOGREL BISULFATE 75 MG TAB PO SCH (09:19)
[2022-10-24] MEDS: PANTOPRAZOLE 40 MG TAB PO SCH (09:19)
[2022-10-24] MEDS: ASPirin 81 mg TAB PO SCH (09:19)
[2022-10-24] MEDS: amLODIPine BESYLATE 5 MG TAB PO SCH (09:22)
[2022-10-24] MEDS ORDERED: LACTULOSE 20Gm/30ML SOLN PO ONE (10:30)
[2022-10-24] MEDS ORDERED: DOCUSATE SOD 100 MG CAP PO ONE (10:30)
[2022-10-24] MEDS ORDERED: hydrALAZINE HCL 20 MG/ML VL IV ONE (13:15)
[2022-10-24] MEDS ORDERED: FLEET ENEMA(ADULT) 135 ML PR ONE (13:15)
[2022-10-24] MEDS ORDERED: POLYETHYLENE GLYCOL 17 GM PWDR PO ONE (15:15)
[2022-10-24] MEDS ORDERED: hydrALAZINE HCL 20 MG/ML VL IV PRN (16:45)
[2022-10-24] MEDS: LACTULOSE 20Gm/30ML SOLN PO SCH ×2 (16:58→23:59)
[2022-10-25 04:30] VITALS: BP 154/44
[2022-10-25] MEDS: LACTULOSE 20Gm/30ML SOLN PO SCH (06:00)
[2022-10-25] MEDS: ACCU-CHEK COMFORT CURVE STRIP VI SCH ×2 (06:23→11:30)
[2022-10-25 06:31] LABS: Hematocrit 24.5 % (36.0-46.0); Hemoglobin 8.3 g/dL (12.2-16.2)
[2022-10-25] MEDS: InsuLIN REG 1unit/0.01ml Soln (100units/ml) SC SCH ×2 (06:31→12:44)
[2022-10-25 06:36] LABS: % Iron Saturation 14.9 % (15-50)
[2022-10-25] MEDS ORDERED: SODIUM CHL 0.9% 1000 ML BAG XX ONE (07:00)
[2022-10-25 08:40] VITALS: BP 177/55
[2022-10-25] MEDS: ASPirin 81 mg TAB PO SCH (09:29)
[2022-10-25] MEDS: amLODIPine BESYLATE 5 MG TAB PO SCH (09:30)
[2022-10-25] MEDS: PANTOPRAZOLE 40 MG TAB PO SCH (09:30)
[2022-10-25] MEDS: METOPROLOL TARTRATE 50 MG TAB PO SCH (09:30)
[2022-10-25] MEDS: CLOPIDOGREL BISULFATE 75 MG TAB PO SCH (09:30)
[2022-10-25] MEDS: MORPHINE SULFATE INJ 2 MG/ml SYRG IV PRN (10:48)
[2022-10-25 13:18] VITALS: BP 135/55
[2022-10-25] MEDS ORDERED: hydrALAZINE HCL 25 MG TAB PO SCH (14:00)
[2022-10-25] MEDS ORDERED: EPOETIN ALFA-EPBX 10,000 UNIT/1ML VIAL SC ONE (21:00)
== END 2022-10-25 17:34 | disposition home or self-care (01) | DRG 640 ==
LOC: ER 16:16 → TELE 21:20 → TELE-CENTR 10-23 23:35
PROVIDERS: ADMIT Nurse Practitioner Family; ATTEND Internal Medicine
PROC: 30233N1 Transfusion of Nonautologous Red Blood Cells into Peripheral Vein, Percutaneous Approach (ICD-10-PCS; principal; 2022-10-23)
PROC: 5A1D70Z Performance of Urinary Filtration, Intermittent, Less than 6 Hours Per Day (ICD-10-PCS; 2022-10-23)
PROC: 5A1D70Z Performance of Urinary Filtration, Intermittent, Less than 6 Hours Per Day (ICD-10-PCS; 2022-10-25)
DX: E87.5 Hyperkalemia (principal); I50.33 Acute on chronic diastolic (congestive) heart failure; N18.6 End stage renal disease; I13.2 Hypertensive heart and chronic kidney disease with heart failure and with stage 5 chronic kidney disease, or end stage renal disease; J96.10 Chronic respiratory failure, unspecified whether with hypoxia or hypercapnia; Z20.822 Contact with and (suspected) exposure to COVID-19; E11.22 Type 2 diabetes mellitus with diabetic chronic kidney disease; D63.8 Anemia in other chronic diseases classified elsewhere; F41.9 Anxiety disorder, unspecified; E66.01 Morbid (severe) obesity due to excess calories; E78.5 Hyperlipidemia, unspecified; I25.119 Atherosclerotic heart disease of native coronary artery with unspecified angina pectoris; J44.9 Chronic obstructive pulmonary disease, unspecified; I25.2 Old myocardial infarction; Z99.2 Dependence on renal dialysis; Z95.5 Presence of coronary angioplasty implant and graft; Z83.3 Family history of diabetes mellitus; Z99.81 Dependence on supplemental oxygen; Z68.30 Body mass index [BMI] 30.0-30.9, adult
CPT/HCPCS: 36415; 80048; 80053; 82728; 82962; 83540; 83550; 84132; 84484; 85014; 85018; 85025; 86850; 86900; 86901; 86922; 87081; 87426; 90935; 93005; 94640; 96374; 96375; 97116; 97163; 97530; C9113; G0378; J1642; J1815; J2405

== ENCOUNTER 2023-02-23 02:46 | Inpatient (IN) | payer OTHER, MEDICAID ==
[~2023-02-23] VITALS: Ht 165.1 cm; Wt 82.9 kg
[~2023-02-23 02:46] MED LIST changes: -AMLO-489 PO; +AMLO1TAB22 PO; -FURO80TA3 PO; +GABA-1308 PO; -GABA100C9 PO; +HYDR-4297 PO; -HYDR50TA15 PO; -LEVO500T31 PO; -LEVO750T8 PO; +SACU1TAB PO
[2023-02-23 03:42] LABS: Basophils # (auto) 0.1 10 ^3/uL (0-0.2); Basophils % (auto) 0.9 % (0.0-2.0); Eosinophils # (auto) 0.4 10 ^3/uL (0-0.8); Eosinophils % (auto) 3.5 % (0.0-7.0); Hematocrit 26.7 % (36.0-46.0); Hemoglobin 8.7 g/dL (12.2-16.2); Lymphocytes # (auto) 0.6 10 ^3/uL (0.4-5.4); Lymphocytes % (auto) 5.7 % (10.0-50.0); Mean Corpuscular Hemoglobin 32.1 pg (28.0-32.0); Mean Corpuscular Hgb Conc. 32.4 g/dL (32.0-36.0); Mean Corpuscular Volume 98.9 fL (80.0-100.0); Monocytes # (auto) 0.7 10 ^3/uL (0-1.3); Monocytes % (auto) 6.9 % (0.0-12.0); Neutrophils # (auto) 8.6 10 ^3/uL (1.6-8.6); Red Cell Distribution Width 17.2 % (11.8-14.3); White Blood Cell 10.4 10^3/uL (4.4-10.8)
[2023-02-23 04:00] LABS: INR 1.04 (0.9-1.15); Partial Thromboplastin Time 27.9 SEC (24.5-34.5)
[2023-02-23 04:12] LABS: Albumin 3.4 g/dL (3.4-5.0); BUN/Creatinine Ratio 6.6 (10.0-20.0); Bilirubin, Total 0.4 mg/dL (0.2-1.0); Calcium 8.9 mg/dL (8.5-10.1); Total Protein 6.9 g/dL (6.4-8.2)
[2023-02-23 04:37] LABS: Potassium 6.2 mmol/L (3.5-5.1)
[2023-02-23] MEDS ORDERED: DEXTROSE (50%) 50ML SYRG IV PRN (05:00)
[2023-02-23] MEDS ORDERED: SODIUM BICARBONATE 8.4% INJ 50ML SYRINGE IV ONE ×3 (05:00→22:45)
[2023-02-23] MEDS ORDERED: FUROSEMIDE 20 MG/2 ML VIAL IV ONE (05:00)
[2023-02-23] MEDS ORDERED: CALCIUM GLUC 1,000mg/50ml-NS 50 ML IV ONE (05:00)
[2023-02-23] MEDS ORDERED: MORPHINE SULFATE INJ 2 MG/ml SYRG IV PRN (05:00)
[2023-02-23] MEDS ORDERED: ONDANSETRON HCL 4 MG/2 ML VIAL IV PRN (05:00)
[2023-02-23] MEDS ORDERED: hydrALAZINE HCL 20 MG/ML VL IV PRN (05:00)
[2023-02-23] MEDS ORDERED: InsuLIN REG 1unit/0.01ml Soln (100units/ml) IV ONE ×3 (05:00→22:45)
[2023-02-23] MEDS ORDERED: DOCUSATE SOD 100 MG CAP PO PRN (05:00)
[2023-02-23] MEDS ORDERED: NITROGLYCERIN 0.4 MG SL TAB SL PRN (05:00)
[2023-02-23] MEDS ORDERED: DEXTROSE (50%) 50ML SYRG IV ONE ×3 (05:00→22:45)
[2023-02-23] MEDS ORDERED: ALBUTEROL SULF 2.5 MG/0.5ML(0.5%) NEB SOLN NEB ONE ×3 (05:00→22:45)
[2023-02-23] MEDS: HYDROcodone-ACET 5/325MG TAB PO PRN (05:26)
[2023-02-23] MEDS: SODIUM CHLOR 0.9% PF (SALINE LOCK) 10ML VIAL/SYR IV SCH ×2 (05:28→14:06)
[2023-02-23 06:07] VITALS: BP 128/43
[2023-02-23] MEDS: ACCU-CHEK COMFORT CURVE STRIP VI SCH ×4 (06:47→21:38)
[2023-02-23] MEDS: InsuLIN REG 1unit/0.01ml Soln (100units/ml) SC SCH ×4 (06:48→21:41)
[2023-02-23 06:50] VITALS: BP 128/43
[2023-02-23] MEDS: SEVELAMER 800 MG TAB PO SCH ×3 (08:06→18:00)
[2023-02-23] MEDS: CLOPIDOGREL BISULFATE 75 MG TAB PO SCH (09:26)
[2023-02-23] MEDS: FUROSEMIDE 40 MG/4 ML VIAL IV SCH (09:26)
[2023-02-23] MEDS: FAMOTIDINE (10MG/ML) 2ML VL IV SCH (09:26)
[2023-02-23] MEDS: B-COMPLEX W/ C & FOLIC ACID(NEPHROVITE TAB) PO SCH (09:27)
[2023-02-23] MEDS: CARVEDILOL 12.5 MG TAB PO SCH ×2 (09:27→21:38)
[2023-02-23] MEDS: ASPirin 81 mg TAB PO SCH (09:27)
[2023-02-23] MEDS ORDERED: LORazepam 2MG/ML-1ML VIAL IV PRN (10:45)
[2023-02-23] MEDS ORDERED: FUROSEMIDE 100 MG/10ML VIAL IV ONE (16:00)
[2023-02-23] MEDS ORDERED: SODIUM CHL 0.9% 1000 ML BAG XX ONE (16:00)
[2023-02-23 18:23] VITALS: BP 158/65
[2023-02-23] MEDS ORDERED: ALBUTEROL SULF 2.5 MG/0.5ML(0.5%) NEB SOLN NEB PRN (18:45)
[2023-02-23] MEDS: ATORVASTATIN 20 MG TAB PO SCH (21:38)
[2023-02-23 22:00] VITALS: BP 162/48
[2023-02-23] MEDS ORDERED: SODIUM ZIRCONIUM CYCL 10 GM PAK PO ONE (22:45)
[2023-02-24] VITALS (8 sets, daily range): BP systolic 115–165; BP diastolic 39–58
[2023-02-24] MEDS: SODIUM CHLOR 0.9% PF (SALINE LOCK) 10ML VIAL/SYR IV SCH ×4 (00:39→22:00)
[2023-02-24] MEDS: ACCU-CHEK COMFORT CURVE STRIP VI SCH ×4 (06:10→22:00)
[2023-02-24] MEDS: InsuLIN REG 1unit/0.01ml Soln (100units/ml) SC SCH ×4 (06:13→21:19)
[2023-02-24 06:23] LABS: Alanine Aminotransferase 11 U/L (13-56); Albumin 2.6 g/dL (3.4-5.0); Anion Gap 12 (5-15); Aspartate Aminotransferase 14 U/L (15-37); BUN/Creatinine Ratio 7.1 (10.0-20.0); Blood Urea Nitrogen 61 mg/dL (7-18); Calcium 8.7 mg/dL (8.5-10.1); Carbon Dioxide 24 mmol/L (21-32); Chloride 99 mmol/L (98-107); GFR African American 6 mL/min; GFR Non-African American 5 mL/min; Glucose 113 mg/dL (74-106); Sodium 135 mmol/L (136-145)
[2023-02-24 06:24] LABS: Basophils # (auto) 0.1 10 ^3/uL (0-0.2); Hemoglobin 7.3 g/dL (12.2-16.2); Lymphocytes # (auto) 0.7 10 ^3/uL (0.4-5.4); Red Cell Distribution Width 17.9 % (11.8-14.3)
[2023-02-24 06:25] LABS: Alkaline Phosphatase 58 U/L (45-117); Bilirubin, Total 0.4 mg/dL (0.2-1.0)
[2023-02-24 06:28] LABS: Basophils % (auto) 1.1 % (0.0-2.0); Eosinophils # (auto) 0.3 10 ^3/uL (0-0.8); Eosinophils % (auto) 3.9 % (0.0-7.0); Hematocrit 22.3 % (36.0-46.0); Lymphocytes % (auto) 8.9 % (10.0-50.0); Mean Corpuscular Hemoglobin 33.7 pg (28.0-32.0); Mean Corpuscular Hgb Conc. 32.9 g/dL (32.0-36.0); Mean Corpuscular Volume 102.6 fL (80.0-100.0); Monocytes # (auto) 0.5 10 ^3/uL (0-1.3); Neutrophils % (auto) 79.1 % (37.0-80.0); Nucleated Red Blood Cells % 0.1 %; Red Blood Cells 2.17 10^6/uL (4.0-5.20); White Blood Cell 7.6 10^3/uL (4.4-10.8)
[2023-02-24] MEDS ORDERED: LIDOCAINE 2%HCL (LOCAL ANESTH.) INJ 20ML MDV IJ ONE (06:30)
[2023-02-24] MEDS: FAMOTIDINE (10MG/ML) 2ML VL IV SCH (08:13)
[2023-02-24] MEDS: SEVELAMER 800 MG TAB PO SCH ×3 (08:13→18:26)
[2023-02-24] MEDS: B-COMPLEX W/ C & FOLIC ACID(NEPHROVITE TAB) PO SCH (08:13)
[2023-02-24] MEDS: HYDROcodone-ACET 5/325MG TAB PO PRN (08:22)
[2023-02-24 08:41] LABS: Potassium 5.6 mmol/L (3.5-5.1)
[2023-02-24] MEDS: ACETAMINOPHEN 325 MG TAB PO PRN ×2 (09:43→20:38)
[2023-02-24] MEDS: CARVEDILOL 12.5 MG TAB PO SCH ×2 (10:00→21:28)
[2023-02-24] MEDS: FUROSEMIDE 40 MG/4 ML VIAL IV SCH (10:00)
[2023-02-24] MEDS: CLOPIDOGREL BISULFATE 75 MG TAB PO SCH (16:06)
[2023-02-24] MEDS: ASPirin 81 mg TAB PO SCH (16:06)
[2023-02-24] MEDS: ATORVASTATIN 20 MG TAB PO SCH (21:25)
[2023-02-25 05:00] VITALS: BP 149/42
[2023-02-25] MEDS: SODIUM CHLOR 0.9% PF (SALINE LOCK) 10ML VIAL/SYR IV SCH ×3 (05:40→22:00)
[2023-02-25] MEDS: InsuLIN REG 1unit/0.01ml Soln (100units/ml) SC SCH ×4 (06:26→21:13)
[2023-02-25] MEDS: ACCU-CHEK COMFORT CURVE STRIP VI SCH ×4 (06:27→22:00)
[2023-02-25 09:04] VITALS: BP 143/55
[2023-02-25] MEDS: SEVELAMER 800 MG TAB PO SCH ×3 (09:28→17:13)
[2023-02-25] MEDS: CLOPIDOGREL BISULFATE 75 MG TAB PO SCH (09:29)
[2023-02-25] MEDS: B-COMPLEX W/ C & FOLIC ACID(NEPHROVITE TAB) PO SCH (09:29)
[2023-02-25] MEDS: ASPirin 81 mg TAB PO SCH (09:30)
[2023-02-25] MEDS: CARVEDILOL 12.5 MG TAB PO SCH ×2 (09:30→21:21)
[2023-02-25] MEDS: FAMOTIDINE (10MG/ML) 2ML VL IV SCH (10:26)
[2023-02-25] MEDS: FUROSEMIDE 40 MG/4 ML VIAL IV SCH (10:26)
[2023-02-25 12:50] VITALS: BP 165/66
[2023-02-25 16:12] LABS: Basophils # (auto) 0.1 10 ^3/uL (0-0.2); Eosinophils # (auto) 0.3 10 ^3/uL (0-0.8); Hemoglobin 7.8 g/dL (12.2-16.2); Lymphocytes # (auto) 0.5 10 ^3/uL (0.4-5.4); Mean Corpuscular Volume 98.7 fL (80.0-100.0)
[2023-02-25 16:14] LABS: Basophils % (auto) 2.6 % (0.0-2.0); Eosinophils % (auto) 5.5 % (0.0-7.0); Lymphocytes % (auto) 8.4 % (10.0-50.0); Mean Corpuscular Hemoglobin 32.1 pg (28.0-32.0); Mean Corpuscular Hgb Conc. 32.5 g/dL (32.0-36.0); Monocytes # (auto) 0.6 10 ^3/uL (0-1.3); Monocytes % (auto) 9.7 % (0.0-12.0); Neutrophils # (auto) 4.2 10 ^3/uL (1.6-8.6); Neutrophils % (auto) 73.8 % (37.0-80.0); Nucleated Red Blood Cells % 0.1 %; Red Blood Cells 2.43 10^6/uL (4.0-5.20); Red Cell Distribution Width 16.7 % (11.8-14.3); White Blood Cell 5.7 10^3/uL (4.4-10.8)
[2023-02-25 16:30] VITALS: BP 161/63
[2023-02-25 16:32] LABS: BUN/Creatinine Ratio 6.2 (10.0-20.0); Calcium 9.1 mg/dL (8.5-10.1); Potassium 4.8 mmol/L (3.5-5.1)
[2023-02-25] MEDS: ATORVASTATIN 20 MG TAB PO SCH (21:21)
[2023-02-25 22:00] VITALS: BP 186/60
[2023-02-26] MEDS: HYDROcodone-ACET 5/325MG TAB PO PRN (02:18)
[2023-02-26 05:00] VITALS: BP 125/43
[2023-02-26] MEDS: SODIUM CHLOR 0.9% PF (SALINE LOCK) 10ML VIAL/SYR IV SCH (06:00)
[2023-02-26] MEDS: InsuLIN REG 1unit/0.01ml Soln (100units/ml) SC SCH ×4 (06:22→22:51)
[2023-02-26 06:33] LABS: Basophils # (auto) 0.1 10 ^3/uL (0-0.2); Eosinophils # (auto) 0.3 10 ^3/uL (0-0.8); Lymphocytes # (auto) 0.6 10 ^3/uL (0.4-5.4); Mean Corpuscular Volume 97.2 fL (80.0-100.0); Monocytes # (auto) 0.6 10 ^3/uL (0-1.3); Neutrophils % (auto) 76.2 % (37.0-80.0); White Blood Cell 6.5 10^3/uL (4.4-10.8)
[2023-02-26] MEDS: ACCU-CHEK COMFORT CURVE STRIP VI SCH ×4 (06:34→22:45)
[2023-02-26 06:36] LABS: Basophils % (auto) 1.3 % (0.0-2.0); Eosinophils % (auto) 4.6 % (0.0-7.0); Hematocrit 19.9 % (36.0-46.0); Lymphocytes % (auto) 9.3 % (10.0-50.0); Mean Corpuscular Hemoglobin 32.6 pg (28.0-32.0); Mean Corpuscular Hgb Conc. 33.5 g/dL (32.0-36.0); Monocytes % (auto) 8.6 % (0.0-12.0); Neutrophils # (auto) 4.9 10 ^3/uL (1.6-8.6); Red Blood Cells 2.05 10^6/uL (4.0-5.20); Red Cell Distribution Width 16.3 % (11.8-14.3)
[2023-02-26 06:56] LABS: Potassium 4.8 mmol/L (3.5-5.1)
[2023-02-26 06:58] LABS: Hemoglobin 6.7 g/dL (12.2-16.2)
[2023-02-26 07:02] LABS: BUN/Creatinine Ratio 6.5 (10.0-20.0); Calcium 8.8 mg/dL (8.5-10.1)
[2023-02-26 09:03] VITALS: BP 145/46
[2023-02-26] MEDS: ASPirin 81 mg TAB PO SCH (09:56)
[2023-02-26] MEDS: FAMOTIDINE (10MG/ML) 2ML VL IV SCH (09:56)
[2023-02-26] MEDS: SEVELAMER 800 MG TAB PO SCH ×3 (09:56→17:46)
[2023-02-26] MEDS: CLOPIDOGREL BISULFATE 75 MG TAB PO SCH (09:56)
[2023-02-26] MEDS: B-COMPLEX W/ C & FOLIC ACID(NEPHROVITE TAB) PO SCH (09:56)
[2023-02-26] MEDS: FUROSEMIDE 40 MG/4 ML VIAL IV SCH (09:57)
[2023-02-26] MEDS: CARVEDILOL 12.5 MG TAB PO SCH ×2 (09:57→22:54)
[2023-02-26 13:00] VITALS: BP 164/53
[2023-02-26] MEDS ORDERED: LIDOCAINE HCL 2% TOP JELLY 5ML TOP ONE (13:00)
[2023-02-26 13:09] VITALS: BP 143/49
[2023-02-26] MEDS ORDERED: BENZOCAINE (DENTAL) 20 % SPRAY 60ML MT ONE (14:00)
[2023-02-26] MEDS ORDERED: SODIUM CHL 0.9% 1000 ML BAG XX ONE (15:45)
[2023-02-26 17:00] VITALS: BP 130/50
[2023-02-26] MEDS: GABAPENTIN 100 MG CAP PO SCH (17:46)
[2023-02-26] MEDS ORDERED: EPOETIN ALFA-EPBX 10,000 UNIT/1ML VIAL SC ONE (21:00)
[2023-02-26 22:00] VITALS: BP 167/74
[2023-02-26] MEDS: ATORVASTATIN 20 MG TAB PO SCH (22:53)
[2023-02-27] VITALS (10 sets, daily range): BP systolic 137–166; BP diastolic 50–72
[2023-02-27 06:13] LABS: Basophils # (auto) 0.1 10 ^3/uL (0-0.2); Lymphocytes # (auto) 0.5 10 ^3/uL (0.4-5.4)
[2023-02-27 06:15] LABS: Eosinophils # (auto) 0.2 10 ^3/uL (0-0.8); Eosinophils % (auto) 4.2 % (0.0-7.0); Hematocrit 23.2 % (36.0-46.0); Hemoglobin 7.6 g/dL (12.2-16.2); Lymphocytes % (auto) 9.3 % (10.0-50.0); Mean Corpuscular Hemoglobin 30.4 pg (28.0-32.0); Mean Corpuscular Hgb Conc. 32.9 g/dL (32.0-36.0); Mean Corpuscular Volume 92.7 fL (80.0-100.0); Monocytes # (auto) 0.5 10 ^3/uL (0-1.3); Monocytes % (auto) 9.7 % (0.0-12.0); Neutrophils # (auto) 4.3 10 ^3/uL (1.6-8.6); Neutrophils % (auto) 75.8 % (37.0-80.0); Red Cell Distribution Width 22.7 % (11.8-14.3); White Blood Cell 5.7 10^3/uL (4.4-10.8)
[2023-02-27 06:33] LABS: BUN/Creatinine Ratio 7.4 (10.0-20.0); Potassium 4.1 mmol/L (3.5-5.1)
[2023-02-27] MEDS: ACCU-CHEK COMFORT CURVE STRIP VI SCH ×4 (06:48→21:33)
[2023-02-27] MEDS: InsuLIN REG 1unit/0.01ml Soln (100units/ml) SC SCH ×4 (06:51→21:41)
[2023-02-27] MEDS: SEVELAMER 800 MG TAB PO SCH ×3 (08:53→16:45)
[2023-02-27] MEDS: PANTOPRAZOLE 40 MG TAB PO SCH (08:53)
[2023-02-27] MEDS: B-COMPLEX W/ C & FOLIC ACID(NEPHROVITE TAB) PO SCH (08:53)
[2023-02-27] MEDS: CLOPIDOGREL BISULFATE 75 MG TAB PO SCH (08:54)
[2023-02-27] MEDS: CARVEDILOL 12.5 MG TAB PO SCH ×2 (08:54→21:33)
[2023-02-27] MEDS: FUROSEMIDE 40 MG/4 ML VIAL IV SCH (08:55)
[2023-02-27] MEDS: ASPirin 81 mg TAB PO SCH (08:55)
[2023-02-27] MEDS: SODIUM CHLOR 0.9% PF (SALINE LOCK) 10ML VIAL/SYR IV SCH (10:33)
[2023-02-27] MEDS ORDERED: DIPHENOXYLATE W/ATROPINE 2.5 MG TAB PO ONE (14:00)
[2023-02-27] MEDS ORDERED: LOPERAMIDE HCL 2 MG CAP/TAB PO ONE (14:30)
[2023-02-27] MEDS: GABAPENTIN 100 MG CAP PO SCH (16:45)
[2023-02-27] MEDS ORDERED: LOPERAMIDE HCL 2 MG CAP/TAB PO PRN (18:00)
[2023-02-27] MEDS: ATORVASTATIN 20 MG TAB PO SCH (21:32)
[2023-02-27] MEDS: HYDROcodone-ACET 5/325MG TAB PO PRN (23:11)
[2023-02-28 05:06] VITALS: BP 151/66
[2023-02-28] MEDS: InsuLIN REG 1unit/0.01ml Soln (100units/ml) SC SCH ×3 (06:36→17:00)
[2023-02-28] MEDS: ACCU-CHEK COMFORT CURVE STRIP VI SCH ×3 (06:38→17:00)
[2023-02-28] MEDS: HYDROcodone-ACET 5/325MG TAB PO PRN (06:41)
[2023-02-28] MEDS ORDERED: SODIUM CHL 0.9% 1000 ML BAG XX ONE ×2 (07:00)
[2023-02-28 08:00] VITALS: BP 150/63
[2023-02-28] MEDS: SEVELAMER 800 MG TAB PO SCH ×3 (08:26→18:59)
[2023-02-28 09:00] VITALS: BP 102/44
[2023-02-28] MEDS: PANTOPRAZOLE 40 MG TAB PO SCH (09:45)
[2023-02-28] MEDS: CARVEDILOL 12.5 MG TAB PO SCH (09:45)
[2023-02-28] MEDS: B-COMPLEX W/ C & FOLIC ACID(NEPHROVITE TAB) PO SCH (09:45)
[2023-02-28] MEDS: ASPirin 81 mg TAB PO SCH (09:46)
[2023-02-28] MEDS: CLOPIDOGREL BISULFATE 75 MG TAB PO SCH (09:46)
[2023-02-28] MEDS: FUROSEMIDE 40 MG/4 ML VIAL IV SCH (09:51)
[2023-02-28 10:54] LABS: Basophils # (auto) 0.1 10 ^3/uL (0-0.2); Basophils % (auto) 1.2 % (0.0-2.0); Eosinophils # (auto) 0.2 10 ^3/uL (0-0.8); Eosinophils % (auto) 4.4 % (0.0-7.0); Hematocrit 26.3 % (36.0-46.0); Hemoglobin 8.5 g/dL (12.2-16.2); Lymphocytes # (auto) 0.4 10 ^3/uL (0.4-5.4); Lymphocytes % (auto) 7.6 % (10.0-50.0); Mean Corpuscular Hgb Conc. 32.4 g/dL (32.0-36.0); Mean Corpuscular Volume 92.6 fL (80.0-100.0); Monocytes # (auto) 0.4 10 ^3/uL (0-1.3); Monocytes % (auto) 8.3 % (0.0-12.0); Neutrophils % (auto) 78.5 % (37.0-80.0); Nucleated Red Blood Cells % 0.1 %; Red Blood Cells 2.84 10^6/uL (4.0-5.20); White Blood Cell 5.1 10^3/uL (4.4-10.8)
[2023-02-28 11:12] LABS: Red Cell Distribution Width 21.6 % (11.8-14.3)
[2023-02-28 11:44] LABS: Potassium 3.6 mmol/L (3.5-5.1)
[2023-02-28 11:55] LABS: BUN/Creatinine Ratio 5.4 (10.0-20.0); Calcium 9.4 mg/dL (8.5-10.1)
[2023-02-28 13:12] VITALS: BP 147/46
[2023-02-28] MEDS ORDERED: ALBU0.084 NEB (16:45)
[2023-02-28 16:52] VITALS: BP 104/44
[2023-02-28 16:53] VITALS: BP 147/46
[2023-02-28] MEDS: GABAPENTIN 100 MG CAP PO SCH (18:59)
[2023-02-28] MEDS ORDERED: EPOETIN ALFA-EPBX 10,000 UNIT/1ML VIAL SC ONE (21:00)
[2023-03-01 14:41] LABS: % Iron Saturation 22.8 % (15-50)
== END 2023-02-28 20:30 | disposition home health service (06) | DRG 291 ==
LOC: EDBD 02:46 → ER 02:50 → TELE 05:12 → TELE-WESTW 18:24
PROVIDERS: ADMIT Nurse Practitioner Family; ATTEND Internal Medicine Geriatric Medicine
PROC: 5A09357 Assistance with Respiratory Ventilation, Less than 24 Consecutive Hours, Continuous Positive Airway Pressure (ICD-10-PCS; 2023-02-23)
PROC: 5A1D70Z Performance of Urinary Filtration, Intermittent, Less than 6 Hours Per Day (ICD-10-PCS; principal; 2023-02-24)
PROC: 5A1D70Z Performance of Urinary Filtration, Intermittent, Less than 6 Hours Per Day (ICD-10-PCS; 2023-02-24)
PROC: 5A1D70Z Performance of Urinary Filtration, Intermittent, Less than 6 Hours Per Day (ICD-10-PCS; 2023-02-26)
PROC: 30233N1 Transfusion of Nonautologous Red Blood Cells into Peripheral Vein, Percutaneous Approach (ICD-10-PCS; 2023-02-27)
DX: I13.2 Hypertensive heart and chronic kidney disease with heart failure and with stage 5 chronic kidney disease, or end stage renal disease (principal); I50.43 Acute on chronic combined systolic (congestive) and diastolic (congestive) heart failure; J96.01 Acute respiratory failure with hypoxia; N18.6 End stage renal disease; E87.5 Hyperkalemia; D63.1 Anemia in chronic kidney disease; E11.22 Type 2 diabetes mellitus with diabetic chronic kidney disease; E11.65 Type 2 diabetes mellitus with hyperglycemia; E78.5 Hyperlipidemia, unspecified; Z66 Do not resuscitate; R19.7 Diarrhea, unspecified; I25.10 Atherosclerotic heart disease of native coronary artery without angina pectoris; J44.9 Chronic obstructive pulmonary disease, unspecified; Z83.3 Family history of diabetes mellitus; Z99.2 Dependence on renal dialysis; I25.2 Old myocardial infarction
CPT/HCPCS: 36415; 36600; 71045; 80048; 80053; 82728; 82805; 82962; 83540; 83550; 83880; 84132; 84484; 85025; 85610; 85730; 86850; 86870; 86900; 86901; 86922; 87081; 87340; 90935; 93005; 94640; 94660; 96374; 96375; G0378; J1815; J3490

== ENCOUNTER 2023-09-13 22:18 | Inpatient (IN) | payer OTHER, MEDICAID ==
[~2023-09-13] VITALS: Ht 158.8 cm; Wt 69.0 kg
[~2023-09-13 22:18] MED LIST changes: +ALBU0.084 NEB
[2023-09-13 23:00] LABS: Basophils # (auto) 0.1 10 ^3/uL (0-0.2); Basophils % (auto) 0.8 % (0.0-2.0); Eosinophils # (auto) 0.2 10 ^3/uL (0-0.8); Eosinophils % (auto) 1.5 % (0.0-7.0); Hematocrit 34.2 % (36.0-46.0); Lymphocytes # (auto) 0.5 10 ^3/uL (0.4-5.4); Lymphocytes % (auto) 5.1 % (10.0-50.0); Mean Corpuscular Hemoglobin 31.6 pg (28.0-32.0); Mean Corpuscular Hgb Conc. 32.1 g/dL (32.0-36.0); Mean Corpuscular Volume 98.2 fL (80.0-100.0); Monocytes # (auto) 0.6 10 ^3/uL (0-1.3); Monocytes % (auto) 5.7 % (0.0-12.0); Neutrophils # (auto) 9.2 10 ^3/uL (1.6-8.6); Neutrophils % (auto) 86.9 % (37.0-80.0); Nucleated Red Blood Cells % 0.2 %; Red Blood Cells 3.48 10^6/uL (4.0-5.20); Red Cell Distribution Width 17.3 % (11.8-14.3); White Blood Cell 10.6 10^3/uL (4.4-10.8)
[2023-09-13 23:12] LABS: Alanine Aminotransferase < 9 U/L (7-40); Alkaline Phosphatase 99 U/L (46-116); Anion Gap 11 (5-15); Aspartate Aminotransferase 13 U/L (13-40); BUN/Creatinine Ratio 6.3 (10.0-20.0); Bilirubin, Total 0.4 mg/dL (0.2-1.0); Blood Urea Nitrogen 36 mg/dL (9-23); Carbon Dioxide 28 mmol/L (20-30); Chloride 98 mmol/L (98-107); Glucose 211 mg/dL (74-106); Magnesium 1.9 mg/dL (1.6-2.6); Potassium 4.8 mmol/L (3.5-5.1); Sodium 137 mmol/L (136-145); Total Protein 6.9 g/dL (5.7-8.2)
[2023-09-13 23:14] LABS: INR 1.02 (0.9-1.15); Partial Thromboplastin Time 30.5 SEC (24.5-34.5); Prothrombin Time 10.7 sec (9.3-11.8)
[2023-09-13] MEDS ORDERED: ALBUTEROL SULF 2.5 MG/0.5ML(0.5%) NEB SOLN NEB ONE (23:15)
[2023-09-13] MEDS ORDERED: FUROSEMIDE 20 MG/2 ML VIAL IV ONE (23:15)
[2023-09-13] MEDS ORDERED: ASPirin 81 mg TAB PO ONE (23:15)
[2023-09-13] MEDS ORDERED: NITROGLYCERIN 0.4MG/HR TOPICAL PATCH TD ONE (23:15)
[2023-09-13] MEDS ORDERED: IPRATROPIUM BROM 0.5 MG/2.5ML INH SOL NEB ONE (23:15)
[2023-09-13] MEDS ORDERED: ENALAPRILAT 1.25 MG/ML-1ML VIAL IV ONE (23:15)
[2023-09-13 23:30] VITALS: PULSE 76; RESP 26; O2SAT 96
[2023-09-13 23:35] LABS: Base Excess 4.5 mmol/L (-2.0-2.0)
[2023-09-14] VITALS (8 sets, daily range): BP systolic 115–149; BP diastolic 36–41; PULSE 62–102; RESP 24–35; TEMP 97.8; O2SAT 92–99
[2023-09-14] MEDS ORDERED: HYDROcodone-ACET 5/325MG TAB PO ONE (03:00)
[2023-09-14 04:40] LABS: COVID19 ANTIGEN SOFIA FIA NEGATIVE (NEGATIVE); Rapid Influenza A Negative (Negative); Rapid Influenza B Negative (Negative)
[2023-09-14] MEDS ORDERED: GABAPENTIN 100 MG CAP PO PRN (04:45)
[2023-09-14] MEDS ORDERED: NITROGLYCERIN 0.4 MG SL TAB SL PRN (05:00)
[2023-09-14] MEDS ORDERED: HYDROmorphone HCL 2 MG/ML VL/or syr IV PRN (05:00)
[2023-09-14] MEDS ORDERED: ACETAMINOPHEN 325 MG TAB PO PRN (05:00)
[2023-09-14] MEDS: cloNIDine HCL 0.1 MG TAB PO SCH ×3 (05:59→23:58)
[2023-09-14] MEDS: hydrALAZINE HCL 25 MG TAB PO SCH ×3 (05:59→23:59)
[2023-09-14] MEDS: SODIUM CHLOR 0.9% PF (SALINE LOCK) 10ML VIAL/SYR IV SCH ×3 (05:59→22:39)
[2023-09-14] MEDS ORDERED: ALBUTEROL MEDNEB 2.5 mg/3ml NEB NEB PRN (06:00)
[2023-09-14] MEDS ORDERED: ALBUTEROL SULF 2.5 MG/0.5ML(0.5%) NEB SOLN ONE (06:53)
[2023-09-14 07:40] LABS: LDL Cholesterol 30 mg/dL (< 100); Triglycerides 158 mg/dL (< 150)
[2023-09-14 07:42] LABS: Cholesterol 90 mg/dL (< 200); HDL Cholesterol 38 mg/dL (40-59)
[2023-09-14] MEDS ORDERED: LABETALOL HCL 5 MG/ML 4ML SYRINGE IV ONE (07:45)
[2023-09-14] MEDS: SEVELAMER 800 MG TAB PO SCH ×3 (08:10→19:04)
[2023-09-14 08:27] LABS: Base Excess 0.7 mmol/L (-2.0-2.0)
[2023-09-14 09:07] LABS: Albumin 3.8 g/dL (3.2-4.8); Alkaline Phosphatase 96 U/L (46-116); Anion Gap 18 (5-15); Aspartate Aminotransferase 20 U/L (13-40); BUN/Creatinine Ratio 5.2 (10.0-20.0); Bilirubin, Total 0.3 mg/dL (0.2-1.0); Blood Urea Nitrogen 32 mg/dL (9-23); Calcium 9.1 mg/dL (8.5-10.1); Carbon Dioxide 20 mmol/L (20-30); Chloride 101 mmol/L (98-107); Glucose 209 mg/dL (74-106); Potassium 4.9 mmol/L (3.5-5.1); Sodium 139 mmol/L (136-145); Total Protein 6.5 g/dL (5.7-8.2)
[2023-09-14 09:23] LABS: Alanine Aminotransferase < 9 U/L (7-40)
[2023-09-14] MEDS: ASPirin-EC 81 mg tab PO SCH (09:55)
[2023-09-14] MEDS: SACUBITRIL-VALSARTAN 24mg/26mg TAB PO SCH ×2 (09:55→23:57)
[2023-09-14] MEDS: FUROSEMIDE 40 MG TAB PO SCH ×2 (09:56→19:04)
[2023-09-14] MEDS: CLOPIDOGREL BISULFATE 75 MG TAB PO SCH (09:56)
[2023-09-14] MEDS: ATORVASTATIN 20 MG TAB PO SCH (09:56)
[2023-09-14] MEDS: METOPROLOL TARTRATE 50 MG TAB PO SCH ×2 (09:57→23:57)
[2023-09-14] MEDS: FUROSEMIDE 40 MG/4 ML VIAL IV SCH ×2 (09:58→19:01)
[2023-09-14] MEDS: INSULIN NPH Isophane (HUMAN) 1unit/0.01ml Susp(100units/ml) SC SCH ×2 (10:00→23:55)
[2023-09-14] MEDS ORDERED: amLODIPine BESYLATE 5 MG TAB PO SCH (10:00)
[2023-09-14] MEDS: HEPARIN SODIUM (PORCINE) 5000 UNITS/ML 1ML VIAL SC SCH ×3 (10:48→23:56)
[2023-09-14] MEDS: NITROGLYCERIN 0.4MG/HR TOPICAL PATCH TD SCH (11:21)
[2023-09-14] MEDS ORDERED: FUROSEMIDE 100 MG/10ML VIAL IV ONE (18:45)
[2023-09-14] MEDS: HYDROcodone-ACET 5/325MG TAB PO PRN (20:53)
[2023-09-15] VITALS (10 sets, daily range): BP systolic 120–147; BP diastolic 31–53; PULSE 75–85; RESP 17–19; TEMP 97.8–99.5; O2SAT 94–100
[2023-09-15] MEDS ORDERED: ALBUTEROL SULF 2.5 MG/0.5ML(0.5%) NEB SOLN ONE (05:46)
[2023-09-15] MEDS: HYDROcodone-ACET 5/325MG TAB PO PRN ×3 (05:50→21:59)
[2023-09-15] MEDS: cloNIDine HCL 0.1 MG TAB PO SCH (05:51)
[2023-09-15] MEDS: hydrALAZINE HCL 25 MG TAB PO SCH ×3 (05:52→21:58)
[2023-09-15] MEDS: SODIUM CHLOR 0.9% PF (SALINE LOCK) 10ML VIAL/SYR IV SCH ×3 (05:52→21:59)
[2023-09-15] MEDS ORDERED: SODIUM CHL 0.9% 1000 ML BAG XX ONE (08:15)
[2023-09-15] MEDS: ALBUMIN 25% 100 ML IV SCH ×2 (08:43→09:56)
[2023-09-15] MEDS: FUROSEMIDE 40 MG TAB PO SCH (10:00)
[2023-09-15] MEDS: HEPARIN SODIUM (PORCINE) 5000 UNITS/ML 1ML VIAL SC SCH ×2 (10:00→22:00)
[2023-09-15] MEDS: FUROSEMIDE 40 MG/4 ML VIAL IV SCH (10:00)
[2023-09-15] MEDS: ASPirin-EC 81 mg tab PO SCH (10:00)
[2023-09-15] MEDS: SEVELAMER 800 MG TAB PO SCH ×3 (11:13→18:54)
[2023-09-15] MEDS: NITROGLYCERIN 0.4MG/HR TOPICAL PATCH TD SCH (11:13)
[2023-09-15] MEDS: ATORVASTATIN 20 MG TAB PO SCH (11:13)
[2023-09-15] MEDS: CLOPIDOGREL BISULFATE 75 MG TAB PO SCH (11:15)
[2023-09-15] MEDS: METOPROLOL TARTRATE 50 MG TAB PO SCH ×2 (11:15→22:00)
[2023-09-15] MEDS: SACUBITRIL-VALSARTAN 24mg/26mg TAB PO SCH ×2 (11:16→22:00)
[2023-09-15] MEDS: INSULIN NPH Isophane (HUMAN) 1unit/0.01ml Susp(100units/ml) SC SCH ×2 (11:40→22:01)
[2023-09-15] MEDS ORDERED: LEVOTHYROXINE SODIUM 25 MCG TAB PO ONE (12:00)
[2023-09-16] VITALS (8 sets, daily range): BP systolic 118–141; BP diastolic 39–90; PULSE 67–113; RESP 16–19; TEMP 97.1–99.7; O2SAT 97–100
[2023-09-16] MEDS: SODIUM CHLOR 0.9% PF (SALINE LOCK) 10ML VIAL/SYR IV SCH ×3 (06:00→22:06)
[2023-09-16] MEDS: LEVOTHYROXINE SODIUM 25 MCG TAB PO SCH (06:51)
[2023-09-16] MEDS: hydrALAZINE HCL 25 MG TAB PO SCH ×3 (06:51→22:05)
[2023-09-16] MEDS: SEVELAMER 800 MG TAB PO SCH ×3 (08:12→17:08)
[2023-09-16] MEDS: HYDROcodone-ACET 5/325MG TAB PO PRN (08:47)
[2023-09-16] MEDS: SACUBITRIL-VALSARTAN 24mg/26mg TAB PO SCH ×2 (09:11→22:00)
[2023-09-16] MEDS: ATORVASTATIN 20 MG TAB PO SCH (09:12)
[2023-09-16] MEDS: FUROSEMIDE 40 MG TAB PO SCH (09:12)
[2023-09-16] MEDS: METOPROLOL TARTRATE 50 MG TAB PO SCH ×2 (09:12→22:06)
[2023-09-16] MEDS: NITROGLYCERIN 0.4MG/HR TOPICAL PATCH TD SCH (09:13)
[2023-09-16] MEDS: INSULIN NPH Isophane (HUMAN) 1unit/0.01ml Susp(100units/ml) SC SCH ×2 (09:14→22:12)
[2023-09-16] MEDS: HEPARIN SODIUM (PORCINE) 5000 UNITS/ML 1ML VIAL SC SCH ×3 (09:14→22:00)
[2023-09-16] MEDS: CLOPIDOGREL BISULFATE 75 MG TAB PO SCH (09:15)
[2023-09-16] MEDS: ASPirin-EC 81 mg tab PO SCH (09:18)
[2023-09-16] MEDS ORDERED: LACTULOSE 20Gm/30ML SOLN PO PRN (15:00)
[2023-09-16] MEDS ORDERED: FEXOFENADINE HCL 60 MG TAB PO ONE (16:45)
[2023-09-16] MEDS: LACTULOSE 20Gm/30ML SOLN PO PRN (17:08)
[2023-09-17] VITALS (8 sets, daily range): BP systolic 119–160; BP diastolic 29–44; PULSE 58–98; RESP 16–19; TEMP 97.4–98.3; O2SAT 97–100
[2023-09-17] MEDS: HYDROcodone-ACET 5/325MG TAB PO PRN (03:46)
[2023-09-17] MEDS: SODIUM CHLOR 0.9% PF (SALINE LOCK) 10ML VIAL/SYR IV SCH ×3 (06:14→22:09)
[2023-09-17] MEDS: hydrALAZINE HCL 25 MG TAB PO SCH ×3 (06:15→22:00)
[2023-09-17] MEDS: LEVOTHYROXINE SODIUM 25 MCG TAB PO SCH (06:15)
[2023-09-17] MEDS: HEPARIN SODIUM (PORCINE) 5000 UNITS/ML 1ML VIAL SC SCH ×2 (10:00→22:00)
[2023-09-17] MEDS: CLOPIDOGREL BISULFATE 75 MG TAB PO SCH (10:00)
[2023-09-17] MEDS: FUROSEMIDE 40 MG TAB PO SCH (10:06)
[2023-09-17] MEDS: ATORVASTATIN 20 MG TAB PO SCH (10:07)
[2023-09-17] MEDS: NITROGLYCERIN 0.4MG/HR TOPICAL PATCH TD SCH (10:07)
[2023-09-17] MEDS: SEVELAMER 800 MG TAB PO SCH ×3 (10:08→17:14)
[2023-09-17] MEDS: SACUBITRIL-VALSARTAN 24mg/26mg TAB PO SCH ×2 (10:10→22:02)
[2023-09-17] MEDS: METOPROLOL TARTRATE 50 MG TAB PO SCH ×2 (10:11→22:02)
[2023-09-17] MEDS: ASPirin-EC 81 mg tab PO SCH (10:12)
[2023-09-17] MEDS: INSULIN NPH Isophane (HUMAN) 1unit/0.01ml Susp(100units/ml) SC SCH ×2 (10:16→22:07)
[2023-09-17] MEDS: guaiFENesin-DM 100/10mg/5ml SYR PO PRN ×2 (11:50→17:14)
[2023-09-17] MEDS: FEXOFENADINE HCL 60 MG TAB PO SCH (12:05)
[2023-09-17] MEDS ORDERED: METO1TAB77 PO (13:53)
[2023-09-17] MEDS ORDERED: ISOS1TAB28 PO (13:53)
[2023-09-17] MEDS ORDERED: MIDO5TAB4 PO (13:56)
[2023-09-17] MEDS ORDERED: amLODIPine BESYLATE 5 MG TAB PO ONE (19:30)
[2023-09-17] MEDS ORDERED: ISOSORBIDE MONONITRATE ER 60 MG TAB PO ONE (19:30)
[2023-09-17] MEDS: ONDANSETRON HCL 4 MG/2 ML VIAL IV PRN (20:13)
[2023-09-18] VITALS (8 sets, daily range): BP systolic 130–170; BP diastolic 29–45; PULSE 70–82; RESP 16–22; TEMP 98–98.3; O2SAT 95–99
[2023-09-18] MEDS: guaiFENesin-DM 100/10mg/5ml SYR PO PRN ×4 (00:05→22:57)
[2023-09-18 05:51] LABS: Basophils # (auto) 0.1 10 ^3/uL (0-0.2); Basophils % (auto) 1.1 % (0.0-2.0); Eosinophils # (auto) 0.3 10 ^3/uL (0-0.8); Eosinophils % (auto) 3.9 % (0.0-7.0); Hematocrit 28.9 % (36.0-46.0); Hemoglobin 9.6 g/dL (12.2-16.2); Lymphocytes # (auto) 0.7 10 ^3/uL (0.4-5.4); Mean Corpuscular Hgb Conc. 33.2 g/dL (32.0-36.0); Mean Corpuscular Volume 96.4 fL (80.0-100.0); Monocytes # (auto) 0.6 10 ^3/uL (0-1.3); Monocytes % (auto) 9.1 % (0.0-12.0); Neutrophils # (auto) 5.3 10 ^3/uL (1.6-8.6); Neutrophils % (auto) 75.9 % (37.0-80.0); Nucleated Red Blood Cells % 0.2 %; Red Cell Distribution Width 16.5 % (11.8-14.3)
[2023-09-18 05:54] LABS: Alkaline Phosphatase 56 U/L (46-116); Anion Gap 12 (5-15); Aspartate Aminotransferase 9 U/L (13-40); Blood Urea Nitrogen 52 mg/dL (9-23); Calcium 9.7 mg/dL (8.5-10.1); Carbon Dioxide 23 mmol/L (20-30); Chloride 94 mmol/L (98-107); Glucose 109 mg/dL (74-106); Potassium 5.5 mmol/L (3.5-5.1); Total Protein 6.7 g/dL (5.7-8.2)
[2023-09-18 05:55] LABS: Bilirubin, Total 0.3 mg/dL (0.2-1.0)
[2023-09-18 05:59] LABS: Alanine Aminotransferase < 9 U/L (7-40); Sodium 129 mmol/L (136-145)
[2023-09-18] MEDS: hydrALAZINE HCL 25 MG TAB PO SCH ×3 (06:00→22:32)
[2023-09-18] MEDS: LEVOTHYROXINE SODIUM 25 MCG TAB PO SCH (06:13)
[2023-09-18] MEDS: SODIUM CHLOR 0.9% PF (SALINE LOCK) 10ML VIAL/SYR IV SCH ×3 (06:14→22:34)
[2023-09-18] MEDS ORDERED: SODIUM CHL 0.9% 1000 ML BAG XX ONE (07:00)
[2023-09-18] MEDS: NITROGLYCERIN 0.4MG/HR TOPICAL PATCH TD SCH (08:47)
[2023-09-18] MEDS: CLOPIDOGREL BISULFATE 75 MG TAB PO SCH (08:49)
[2023-09-18] MEDS: LACTULOSE 20Gm/30ML SOLN PO PRN (08:49)
[2023-09-18] MEDS: ATORVASTATIN 20 MG TAB PO SCH (08:49)
[2023-09-18] MEDS: HYDROcodone-ACET 5/325MG TAB PO PRN ×2 (08:50→18:53)
[2023-09-18] MEDS: FEXOFENADINE HCL 60 MG TAB PO SCH (08:53)
[2023-09-18] MEDS: SEVELAMER 800 MG TAB PO SCH ×3 (08:54→17:01)
[2023-09-18] MEDS: ASPirin-EC 81 mg tab PO SCH (09:05)
[2023-09-18] MEDS: INSULIN NPH Isophane (HUMAN) 1unit/0.01ml Susp(100units/ml) SC SCH ×2 (09:06→22:59)
[2023-09-18] MEDS: FUROSEMIDE 40 MG TAB PO SCH (09:16)
[2023-09-18] MEDS: HEPARIN SODIUM (PORCINE) 5000 UNITS/ML 1ML VIAL SC SCH ×2 (09:17→22:32)
[2023-09-18] MEDS: SACUBITRIL-VALSARTAN 24mg/26mg TAB PO SCH ×2 (09:17→22:33)
[2023-09-18] MEDS: METOPROLOL TARTRATE 50 MG TAB PO SCH ×2 (09:18→22:32)
[2023-09-18] MEDS ORDERED: cloNIDine HCL 0.1 MG TAB PO PRN (16:30)
[2023-09-18] MEDS: ONDANSETRON HCL 4 MG/2 ML VIAL IV PRN (18:30)
[2023-09-18] MEDS ORDERED: LABETALOL HCL 5 MG/ML 4ML SYRINGE IV ONE (18:45)
[2023-09-18] MEDS: IPRATROPIUM BROM 0.5 MG/2.5ML INH SOL NEB PRN ×2 (18:59→19:28)
[2023-09-18] MEDS: ALBUTEROL SULF 2.5 MG/0.5ML(0.5%) NEB SOLN NEB PRN ×2 (19:00→19:28)
[2023-09-19] VITALS (8 sets, daily range): BP systolic 139–159; BP diastolic 30–56; PULSE 70–79; RESP 16–20; TEMP 97.3–98.3; O2SAT 98–99
[2023-09-19] MEDS: SODIUM CHLOR 0.9% PF (SALINE LOCK) 10ML VIAL/SYR IV SCH ×3 (05:03→21:47)
[2023-09-19] MEDS: hydrALAZINE HCL 25 MG TAB PO SCH ×3 (05:03→21:47)
[2023-09-19] MEDS: LEVOTHYROXINE SODIUM 25 MCG TAB PO SCH (06:25)
[2023-09-19 06:44] LABS: Anion Gap 9 (5-15); Carbon Dioxide 27 mmol/L (20-30); Chloride 97 mmol/L (98-107); Potassium 5.2 mmol/L (3.5-5.1); Sodium 133 mmol/L (136-145)
[2023-09-19 06:45] LABS: Calcium 9.4 mg/dL (8.7-10.4)
[2023-09-19 06:50] LABS: BUN/Creatinine Ratio 5.6 (10.0-20.0); Glucose 115 mg/dL (74-106)
[2023-09-19 06:54] LABS: Blood Urea Nitrogen 30 mg/dL (9-23)
[2023-09-19] MEDS: HEPARIN SODIUM (PORCINE) 5000 UNITS/ML 1ML VIAL SC SCH ×2 (10:00→21:54)
[2023-09-19] MEDS: NITROGLYCERIN 0.4MG/HR TOPICAL PATCH TD SCH (10:00)
[2023-09-19] MEDS: ATORVASTATIN 20 MG TAB PO SCH (10:45)
[2023-09-19] MEDS: CLOPIDOGREL BISULFATE 75 MG TAB PO SCH (10:46)
[2023-09-19] MEDS: SEVELAMER 800 MG TAB PO SCH ×3 (10:46→18:13)
[2023-09-19] MEDS: FUROSEMIDE 40 MG TAB PO SCH (10:47)
[2023-09-19] MEDS: METOPROLOL TARTRATE 50 MG TAB PO SCH ×2 (10:48→21:47)
[2023-09-19] MEDS: ASPirin-EC 81 mg tab PO SCH (10:51)
[2023-09-19] MEDS: SACUBITRIL-VALSARTAN 24mg/26mg TAB PO SCH ×2 (11:00→21:46)
[2023-09-19] MEDS: INSULIN NPH Isophane (HUMAN) 1unit/0.01ml Susp(100units/ml) SC SCH ×2 (11:05→22:01)
[2023-09-19] MEDS: FEXOFENADINE HCL 60 MG TAB PO SCH (11:28)
[2023-09-19] MEDS: LACTULOSE 20Gm/30ML SOLN PO PRN (12:29)
[2023-09-19] MEDS ORDERED: SODIUM ZIRCONIUM CYCL 10 GM PAK PO ONE (13:30)
[2023-09-19] MEDS: FUROSEMIDE 100 MG/10ML VIAL IV SCH ×2 (15:00→18:13)
[2023-09-19] MEDS: HYDROcodone-ACET 5/325MG TAB PO PRN (20:01)
[2023-09-20 05:00] VITALS: BP 160/50; PULSE 78; RESP 20; TEMP 98.3; O2SAT 97
[2023-09-20] MEDS: hydrALAZINE HCL 25 MG TAB PO SCH ×2 (06:00→14:00)
[2023-09-20 06:29] LABS: Hematocrit 29.8 % (36.0-46.0); Hemoglobin 9.5 g/dL (12.2-16.2)
[2023-09-20] MEDS: LEVOTHYROXINE SODIUM 25 MCG TAB PO SCH (06:47)
[2023-09-20] MEDS: SODIUM CHLOR 0.9% PF (SALINE LOCK) 10ML VIAL/SYR IV SCH ×2 (06:48→14:00)
[2023-09-20] MEDS: FUROSEMIDE 100 MG/10ML VIAL IV SCH (06:48)
[2023-09-20] MEDS ORDERED: SODIUM CHL 0.9% 1000 ML BAG XX ONE (07:00)
[2023-09-20 08:56] VITALS: BP 158/49; PULSE 70; RESP 16; TEMP 97.8; O2SAT 98
[2023-09-20] MEDS: FEXOFENADINE HCL 60 MG TAB PO SCH (10:00)
[2023-09-20] MEDS: SEVELAMER 800 MG TAB PO SCH ×2 (12:00→13:31)
[2023-09-20 13:00] VITALS: BP 143/51; PULSE 69; RESP 17; TEMP 97.6; O2SAT 98
[2023-09-20] MEDS ORDERED: HEPARIN SODIUM (PORCINE) 5000 UNITS/ML 1ML VIAL ONE (13:14)
[2023-09-20 13:22] VITALS: O2SAT 100
[2023-09-20] MEDS: CLOPIDOGREL BISULFATE 75 MG TAB PO SCH (13:29)
[2023-09-20] MEDS: METOPROLOL TARTRATE 50 MG TAB PO SCH (13:30)
[2023-09-20] MEDS: SACUBITRIL-VALSARTAN 24mg/26mg TAB PO SCH (13:31)
[2023-09-20] MEDS: ASPirin-EC 81 mg tab PO SCH (13:31)
[2023-09-20] MEDS: HEPARIN SODIUM (PORCINE) 5000 UNITS/ML 1ML VIAL SC SCH (13:32)
[2023-09-20] MEDS: INSULIN NPH Isophane (HUMAN) 1unit/0.01ml Susp(100units/ml) SC SCH (13:33)
[2023-09-20] MEDS: NITROGLYCERIN 0.4MG/HR TOPICAL PATCH TD SCH (13:34)
[2023-09-20] MEDS ORDERED: diphenhdrAMINE HCL 25 MG CAP PO ONE (16:00)
[2023-09-20] MEDS: ATORVASTATIN 20 MG TAB PO SCH (16:19)
[2023-09-20 16:54] VITALS: BP 159/40; PULSE 68; RESP 18; TEMP 97.6; O2SAT 98
[2023-09-20] MEDS ORDERED: LEV25T PO (16:56)
[2023-09-20] MEDS ORDERED: EPOETIN ALFA-EPBX 4,000 UNIT/ML VIAL SC ONE (21:00)
== END 2023-09-20 18:45 | disposition home or self-care (01) | DRG 291 ==
LOC: ER 22:18 → EDBD 22:18 → EDUNIT# 22:18 → TELE 09-14 04:46 → TELE-CENTR 09-14 04:49 → CENTRAL 09-18 12:42
PROVIDERS: ADMIT Internal Medicine; ATTEND Internal Medicine
PROC: 5A09357 Assistance with Respiratory Ventilation, Less than 24 Consecutive Hours, Continuous Positive Airway Pressure (ICD-10-PCS; principal; 2023-09-14)
PROC: 5A1D70Z Performance of Urinary Filtration, Intermittent, Less than 6 Hours Per Day (ICD-10-PCS; 2023-09-15)
PROC: 5A1D70Z Performance of Urinary Filtration, Intermittent, Less than 6 Hours Per Day (ICD-10-PCS; 2023-09-17)
PROC: 5A1D70Z Performance of Urinary Filtration, Intermittent, Less than 6 Hours Per Day (ICD-10-PCS; 2023-09-19)
DX: I13.2 Hypertensive heart and chronic kidney disease with heart failure and with stage 5 chronic kidney disease, or end stage renal disease (principal); I50.33 Acute on chronic diastolic (congestive) heart failure; J96.01 Acute respiratory failure with hypoxia; N18.6 End stage renal disease; J44.1 Chronic obstructive pulmonary disease with (acute) exacerbation; E87.1 Hypo-osmolality and hyponatremia; E87.20 Acidosis, unspecified; Z66 Do not resuscitate; D63.8 Anemia in other chronic diseases classified elsewhere; E11.65 Type 2 diabetes mellitus with hyperglycemia; Z20.822 Contact with and (suspected) exposure to COVID-19; Z68.27 Body mass index [BMI] 27.0-27.9, adult; D63.1 Anemia in chronic kidney disease; E03.9 Hypothyroidism, unspecified; E11.22 Type 2 diabetes mellitus with diabetic chronic kidney disease; E66.3 Overweight; E78.5 Hyperlipidemia, unspecified; E87.5 Hyperkalemia; I25.10 Atherosclerotic heart disease of native coronary artery without angina pectoris; I25.2 Old myocardial infarction; K59.00 Constipation, unspecified; Z99.2 Dependence on renal dialysis; Z79.84 Long term (current) use of oral hypoglycemic drugs; Z83.3 Family history of diabetes mellitus; Z90.49 Acquired absence of other specified parts of digestive tract
CPT/HCPCS: 36415; 36600; 71045; 71250; 76604; 80048; 80053; 80061; 82805; 82962; 83036; 83735; 83880; 84132; 84443; 84484; 85014; 85018; 85025; 85610; 85730; 87081; 87340; 87426; 87804; 90935; 93005; 93306; 94640; 94660; 96374; 96375; 97163; G0378; J1642; J1815; J2405; J3490; P9047

== ENCOUNTER 2023-09-23 06:47 | Emergency (ER) | payer OTHER, MEDICAID ==
[~2023-09-23] VITALS: Ht 165.1 cm; Wt 45.0 kg
[~2023-09-23 06:47] MED LIST changes: -CLOP75TA70 PO; -FURO40TA4 PO; -HYDR-4297 PO; +ISOS1TAB28 PO; +LEV25T PO; -METO1TAB77 PO; +MIDO5TAB4 PO; -SACU1TAB PO; -SEVE800T8 PO
[2023-09-23 07:25] LABS: Hematocrit 27.2 % (36.0-46.0); Hemoglobin 8.6 g/dL (12.2-16.2); Mean Corpuscular Hemoglobin 30.6 pg (28.0-32.0); Mean Corpuscular Hgb Conc. 31.9 g/dL (32.0-36.0); Mean Corpuscular Volume 96.2 fL (80.0-100.0); Red Blood Cells 2.82 10^6/uL (4.0-5.20); Red Cell Distribution Width 16.6 % (11.8-14.3); White Blood Cell 11.7 10^3/uL (4.4-10.8)
[2023-09-23 07:32] LABS: Basophils % (manual) 0 (0.0-2.0); Blast Cells 0; Eosinophils % (manual) 0 (0-7); Myelocytes % 0; Promyelocytes % 0; Reactive Lymphocytes 0
[2023-09-23] MEDS ORDERED: SODIUM CHLORIDE 0.9% 1,000 ML IV ONE (07:45)
[2023-09-23 07:47] VITALS: PULSE 90; RESP 36; O2SAT 94
[2023-09-23 07:56] LABS: Alanine Aminotransferase 10 U/L (7-40); Albumin 4.2 g/dL (3.2-4.8); Alkaline Phosphatase 61 U/L (46-116); Anion Gap 10 (5-15); Aspartate Aminotransferase 15 U/L (13-40); BUN/Creatinine Ratio 7.5 (10.0-20.0); Bilirubin, Total 0.4 mg/dL (0.2-1.0); Blood Urea Nitrogen 57 mg/dL (9-23); Calcium 10.2 mg/dL (8.5-10.1); Carbon Dioxide 25 mmol/L (20-30); Chloride 97 mmol/L (98-107); Glucose 174 mg/dL (74-106); Potassium 5.1 mmol/L (3.5-5.1); Sodium 132 mmol/L (136-145); Total Protein 7.1 g/dL (5.7-8.2)
[2023-09-23 08:24] LABS: Anisocytosis Slight; Band Neutrophils % (manual) 5; Lymphocytes % (manual) 7 (10.0-50.0); Metamyelocytes % 1; Monocytes % (manual) 5 (0-12)
[2023-09-23 08:25] LABS: Platelet Estimate Adequate
[2023-09-23 08:30] LABS: Magnesium 1.9 mg/dL (1.6-2.6)
[2023-09-23 08:37] LABS: COVID19 ANTIGEN SOFIA FIA NEGATIVE (NEGATIVE)
[2023-09-23] MEDS ORDERED: ACETAMINOPHEN 650 mg PER 20.3 mL UD PO ONE (08:45)
[2023-09-23] MEDS ORDERED: IOHEXOL 350 MG/ML 100ML IJ ONE ×2 (16:05→17:06)
[2023-09-23] MEDS ORDERED: IOHEXOL 300 MG/ML 100ML BOTTLE IJ ONE (17:06)
[2023-09-23] MEDS ORDERED: GABAPENTIN 100 MG CAP PO ONE (18:45)
[2023-09-23] MEDS ORDERED: NITROGLYCERIN 0.4 MG SL TAB SL ONE (19:00)
[2023-09-23 19:38] VITALS: PULSE 90; RESP 20; O2SAT 99
[2023-09-23 22:57] VITALS: BP 152/48; PULSE 84; RESP 20; TEMP 98.9; O2SAT 98
== END 2023-09-23 23:16 | disposition short-term general hospital (02) ==
LOC: EDBD 06:47 → ER 06:47
DX: D53.9 Nutritional anemia, unspecified (principal); I13.2 Hypertensive heart and chronic kidney disease with heart failure and with stage 5 chronic kidney disease, or end stage renal disease; E11.22 Type 2 diabetes mellitus with diabetic chronic kidney disease; E11.65 Type 2 diabetes mellitus with hyperglycemia; N18.6 End stage renal disease; I50.9 Heart failure, unspecified; J81.1 Chronic pulmonary edema; R79.1 Abnormal coagulation profile; R07.89 Other chest pain; J44.9 Chronic obstructive pulmonary disease, unspecified; E78.5 Hyperlipidemia, unspecified; I25.2 Old myocardial infarction; Z99.2 Dependence on renal dialysis; Z20.822 Contact with and (suspected) exposure to COVID-19
CPT/HCPCS: 36415; 71045; 71275; 80053; 83605; 83735; 83880; 84484; 85007; 85027; 85379; 87040; 87426; 93005; 96360; 96361; 99291; J7030; Q9967

== ENCOUNTER 2024-01-16 11:39 | Inpatient (IN) | payer OTHER, MEDICAID ==
[~2024-01-16] VITALS: Ht 167.6 cm; Wt 63.7 kg
[2024-01-16 12:52] LABS: Basophils # (auto) 0.1 10 ^3/uL (0-0.2); Basophils % (auto) 0.8 % (0.0-2.0); Eosinophils # (auto) 0.1 10 ^3/uL (0-0.8); Eosinophils % (auto) 0.9 % (0.0-7.0); Hematocrit 35.2 % (36.0-46.0); Hemoglobin 11.4 g/dL (12.2-16.2); Lymphocytes # (auto) 1.1 10 ^3/uL (0.4-5.4); Mean Corpuscular Hemoglobin 32.2 pg (28.0-32.0); Mean Corpuscular Hgb Conc. 32.2 g/dL (32.0-36.0); Mean Corpuscular Volume 100.1 fL (80.0-100.0); Monocytes # (auto) 0.2 10 ^3/uL (0-1.3); Monocytes % (auto) 3.1 % (0.0-12.0); Neutrophils # (auto) 6.5 10 ^3/uL (1.6-8.6); Neutrophils % (auto) 81.2 % (37.0-80.0); Nucleated Red Blood Cells % 0.1 %; Red Blood Cells 3.52 10^6/uL (4.0-5.20); Red Cell Distribution Width 21.2 % (11.8-14.3)
[2024-01-16 13:02] LABS: Alanine Aminotransferase 18 U/L (7-40); Albumin 3.4 g/dL (3.2-4.8); Alkaline Phosphatase 115 U/L (46-116); Anion Gap 10 (5-15); Aspartate Aminotransferase 28 U/L (13-40); BUN/Creatinine Ratio 11.8 (10.0-20.0); Bilirubin, Total 0.3 mg/dL (0.2-1.0); Blood Alcohol < 3.0 mg/dL (<10); Blood Urea Nitrogen 54 mg/dL (9-23); Calcium 9.8 mg/dL (8.5-10.1); Carbon Dioxide 23 mmol/L (20-30); Chloride 99 mmol/L (98-107); Glucose 83 mg/dL (74-106); Sodium 132 mmol/L (136-145); Total Protein 6.7 g/dL (5.7-8.2)
[2024-01-16 13:09] LABS: Potassium 7.1 mmol/L (3.5-5.1)
[2024-01-16] MEDS: ALBUTEROL SULF 2.5 MG/0.5ML(0.5%) NEB SOLN NEB ONE ×2 (13:52→19:19)
[2024-01-16 14:00] VITALS: PULSE 61; RESP 12; O2SAT 100
[2024-01-16] MEDS: InsuLIN REG 1unit/0.01ml Soln (100units/ml) IV ONE ×2 (16:30→20:36)
[2024-01-16] MEDS: CALCIUM GLUC 1,000mg/50ml-NS 50 ML IV ONE (16:36)
[2024-01-16] MEDS: FUROSEMIDE 20 MG/2 ML VIAL IV ONE (16:37)
[2024-01-16] MEDS: DEXTROSE (50%) 50ML SYRG IV ONE ×2 (16:42→19:44)
[2024-01-16] MEDS: SODIUM ZIRCONIUM CYCL 10 GM PAK PO ONE (16:43)
[2024-01-16] MEDS: SODIUM BICARB 8.4% 50Meq/50ml SYR INJ IV ONE ×2 (16:43→20:36)
[2024-01-16 18:08] LABS: Urine Bacteria MOD /hpf (None Seen); Urine Blood TRACE /uL (Negative); Urine Clarity Ex.Turbid (Clear); Urine Color Light-Orange (Yellow); Urine Mucus FEW (None Seen); Urine Protein, UAD 1+ (Negative); Urine Specific Gravity 1.011 (1.001-1.035); Urine Urobilinogen Normal (Negative); Urine WBC 127 /hpf (0 - 5); Urine WBC Clumps PRESENT /hpf (None Seen)
[2024-01-16] MEDS ORDERED: CLOP75TA70 PO (19:10)
[2024-01-16 19:14] VITALS: PULSE 57; RESP 16; O2SAT 99
[2024-01-16] MEDS ORDERED: DEXTROSE (50%) 50ML SYRG IV PRN (19:15)
[2024-01-16] MEDS ORDERED: GABAPENTIN 100 MG CAP PO PRN (19:15)
[2024-01-16] MEDS ORDERED: MET50T PO (19:20)
[2024-01-16 19:24] VITALS: PULSE 60; RESP 18; O2SAT 100
[2024-01-16 19:30] VITALS: PULSE 59; RESP 19; O2SAT 100
[2024-01-16 20:16] LABS: Triglycerides 174 mg/dL (< 150)
[2024-01-16 20:17] LABS: LDL Cholesterol 37 mg/dL (< 100)
[2024-01-16 20:18] LABS: Cholesterol 119 mg/dL (< 200); HDL Cholesterol 42 mg/dL (40-59)
[2024-01-16 20:35] VITALS: PULSE 67; RESP 16; O2SAT 100
[2024-01-16] MEDS: hydrALAZINE HCL 20 MG/ML VL IV ONE (20:37)
[2024-01-16] MEDS: ACCU-CHEK COMFORT CURVE STRIP VI SCH (21:50)
[2024-01-16] MEDS: DEXTROSE (50%) 50ML SYRG IV PRN (21:50)
[2024-01-16] MEDS: InsuLIN REG 1unit/0.01ml Soln (100units/ml) SC SCH (21:51)
[2024-01-16] MEDS: ATORVASTATIN 20 MG TAB PO SCH (21:57)
[2024-01-16] MEDS: METOPROLOL TARTRATE 50 MG TAB PO SCH (21:57)
[2024-01-16] MEDS ORDERED: InsuLIN REG 1unit/0.01ml Soln (100units/ml) SC SCH (22:00)
[2024-01-16] MEDS ORDERED: ACCU-CHEK COMFORT CURVE STRIP VI SCH (22:00)
[2024-01-17] VITALS (22 sets, daily range): BP systolic 116–193; BP diastolic 14–49; PULSE 67–82; RESP 12–33; TEMP 97.7–99; O2SAT 97–100
[2024-01-17] MEDS: hydrALAZINE HCL 20 MG/ML VL IV PRN (02:50)
[2024-01-17 05:31] LABS: Alanine Aminotransferase 13 U/L (7-40); Albumin 2.8 g/dL (3.2-4.8); Alkaline Phosphatase 96 U/L (46-116); Anion Gap 10 (5-15); Aspartate Aminotransferase 21 U/L (13-40); BUN/Creatinine Ratio 7.6 (10.0-20.0); Bilirubin, Total 0.3 mg/dL (0.2-1.0); Blood Urea Nitrogen 18 mg/dL (9-23); Calcium 9.3 mg/dL (8.7-10.4); Carbon Dioxide 26 mmol/L (20-30); Chloride 101 mmol/L (98-107); Glucose 72 mg/dL (74-106); Potassium 4.5 mmol/L (3.5-5.1); Sodium 137 mmol/L (136-145); Total Protein 5.8 g/dL (5.7-8.2)
[2024-01-17 05:32] LABS: Basophils # (auto) 0 10 ^3/uL (0-0.2); Basophils % (auto) 0.5 % (0.0-2.0); Eosinophils # (auto) 0 10 ^3/uL (0-0.8); Eosinophils % (auto) 0.6 % (0.0-7.0); Hematocrit 34.1 % (36.0-46.0); Hemoglobin 10.6 g/dL (12.2-16.2); Lymphocytes # (auto) 0.7 10 ^3/uL (0.4-5.4); Lymphocytes % (auto) 7.7 % (10.0-50.0); Mean Corpuscular Hemoglobin 32.4 pg (28.0-32.0); Mean Corpuscular Hgb Conc. 31.1 g/dL (32.0-36.0); Mean Corpuscular Volume 104.3 fL (80.0-100.0); Monocytes # (auto) 0.6 10 ^3/uL (0-1.3); Monocytes % (auto) 6.9 % (0.0-12.0); Neutrophils # (auto) 7.3 10 ^3/uL (1.6-8.6); Neutrophils % (auto) 84.3 % (37.0-80.0); Nucleated Red Blood Cells % 0.2 %; Red Blood Cells 3.26 10^6/uL (4.0-5.20); White Blood Cell 8.6 10^3/uL (4.4-10.8)
[2024-01-17 05:34] LABS: Red Cell Distribution Width 21.6 % (11.8-14.3)
[2024-01-17] MEDS: LEVOTHYROXINE SODIUM 25 MCG TAB PO SCH (06:10)
[2024-01-17] MEDS ORDERED: InsuLIN REG 1unit/0.01ml Soln (100units/ml) SC SCH (07:00)
[2024-01-17] MEDS: ASPirin-EC 81 mg tab PO SCH (09:48)
[2024-01-17] MEDS: MIDODRINE HCL 10 MG TAB PO SCH (09:48)
[2024-01-17 11:05] LABS: Base Excess 4.6 mmol/L (-2.0-2.0)
[2024-01-17] MEDS ORDERED: MIRT1TAB38 PO (12:06)
[2024-01-17] MEDS: MEROPENEM 1GM IVPB 50 ML IV ONE (15:15)
[2024-01-17] MEDS ORDERED: LORazepam 2MG/ML-1ML VIAL IV PRN (21:00)
[2024-01-17] MEDS: MEROPENEM 1GM IVPB 50 ML IV SCH (22:33)
[2024-01-17 22:36] LABS: Free T4 (Free Thyroxine) 1.03 ng/dL (0.89-1.76)
[2024-01-17 22:37] LABS: Folate (Folic Acid) 16.57 ng/mL (>5.38)
[2024-01-18] VITALS (22 sets, daily range): BP systolic 93–164; BP diastolic 15–87; PULSE 63–90; RESP 1–21; TEMP 96.7–98; O2SAT 97–100
[2024-01-18 05:54] LABS: Basophils # (auto) 0.1 10 ^3/uL (0-0.2); Basophils % (auto) 1.3 % (0.0-2.0); Eosinophils # (auto) 0.1 10 ^3/uL (0-0.8); Eosinophils % (auto) 1.8 % (0.0-7.0); Hematocrit 34.1 % (36.0-46.0); Hemoglobin 10.8 g/dL (12.2-16.2); Lymphocytes # (auto) 0.9 10 ^3/uL (0.4-5.4); Lymphocytes % (auto) 12.7 % (10.0-50.0); Mean Corpuscular Hemoglobin 32.3 pg (28.0-32.0); Mean Corpuscular Hgb Conc. 31.7 g/dL (32.0-36.0); Mean Corpuscular Volume 102.1 fL (80.0-100.0); Monocytes # (auto) 0.7 10 ^3/uL (0-1.3); Monocytes % (auto) 9.7 % (0.0-12.0); Neutrophils # (auto) 5.5 10 ^3/uL (1.6-8.6); Neutrophils % (auto) 74.5 % (37.0-80.0); Nucleated Red Blood Cells % 0.1 %; Red Blood Cells 3.34 10^6/uL (4.0-5.20); Red Cell Distribution Width 22.1 % (11.8-14.3); White Blood Cell 7.4 10^3/uL (4.4-10.8)
[2024-01-18 06:14] LABS: Calcium 9.6 mg/dL (8.5-10.1); Chloride 101 mmol/L (98-107); Potassium 5.4 mmol/L (3.5-5.1); Sodium 138 mmol/L (136-145)
[2024-01-18 06:15] LABS: Anion Gap 10 (5-15); Carbon Dioxide 27 mmol/L (20-30)
[2024-01-18 06:20] LABS: BUN/Creatinine Ratio 8.1 (10.0-20.0); Blood Urea Nitrogen 27 mg/dL (9-23); Glucose 58 mg/dL (74-106)
[2024-01-18] MEDS: SODIUM CHL 0.9% 1000 ML BAG XX ONE (07:00)
[2024-01-18] MEDS: Nepro With Carb Steady 1 Liter Bottle GT SCH (14:00)
[2024-01-18] MEDS: MEROPENEM 500MG IVPB 50 ML IV SCH (21:05)
[2024-01-18] MEDS: EPOETIN ALFA-EPBX 4,000 UNIT/ML VIAL SC ONE (21:13)
[2024-01-19] VITALS (18 sets, daily range): BP systolic 59–179; BP diastolic 13–79; PULSE 62–74; RESP 13–23; TEMP 97.9–99; O2SAT 96–100
[2024-01-19 05:52] LABS: Chloride 102 mmol/L (98-107); Potassium 4.3 mmol/L (3.5-5.1); Sodium 139 mmol/L (136-145)
[2024-01-19 05:53] LABS: Anion Gap 7 (5-15); Calcium 9.7 mg/dL (8.7-10.4); Carbon Dioxide 30 mmol/L (20-30)
[2024-01-19 05:58] LABS: Glucose 83 mg/dL (74-106)
[2024-01-19 06:09] LABS: Blood Urea Nitrogen 18 mg/dL (9-23)
[2024-01-19 06:50] LABS: Basophils # (auto) 0.1 10 ^3/uL (0-0.2); Basophils % (auto) 0.9 % (0.0-2.0); Eosinophils # (auto) 0.2 10 ^3/uL (0-0.8); Eosinophils % (auto) 3.1 % (0.0-7.0); Hematocrit 31.1 % (36.0-46.0); Lymphocytes # (auto) 0.3 10 ^3/uL (0.4-5.4); Lymphocytes % (auto) 5.1 % (10.0-50.0); Mean Corpuscular Hemoglobin 32.4 pg (28.0-32.0); Mean Corpuscular Hgb Conc. 32.3 g/dL (32.0-36.0); Mean Corpuscular Volume 100.3 fL (80.0-100.0); Monocytes # (auto) 0.7 10 ^3/uL (0-1.3); Monocytes % (auto) 9.8 % (0.0-12.0); Neutrophils # (auto) 5.5 10 ^3/uL (1.6-8.6); Neutrophils % (auto) 81.1 % (37.0-80.0); Nucleated Red Blood Cells % 0.2 %; White Blood Cell 6.7 10^3/uL (4.4-10.8)
[2024-01-19 06:56] LABS: Red Cell Distribution Width 20.9 % (11.8-14.3)
[2024-01-19] MEDS: HYDROcodone-ACET 5/325MG TAB PO PRN (08:08)
[2024-01-20] VITALS (7 sets, daily range): BP systolic 120–170; BP diastolic 15–40; PULSE 60–70; RESP 18–25; TEMP 97.6–98.2; O2SAT 98–100
[2024-01-20 09:29] LABS: Alanine Aminotransferase 14 U/L (7-40); Albumin 2.5 g/dL (3.2-4.8); Alkaline Phosphatase 112 U/L (46-116); Anion Gap 7 (5-15); Aspartate Aminotransferase 35 U/L (13-40); BUN/Creatinine Ratio 5.6 (10.0-20.0); Bilirubin, Total 0.4 mg/dL (0.2-1.0); Blood Urea Nitrogen 18 mg/dL (9-23); Calcium 9.1 mg/dL (8.5-10.1); Carbon Dioxide 25 mmol/L (20-30); Chloride 101 mmol/L (98-107); Glucose 148 mg/dL (74-106); Magnesium 2.1 mg/dL (1.6-2.6); Potassium 4.5 mmol/L (3.5-5.1); Total Protein 5.4 g/dL (5.7-8.2)
[2024-01-20 09:30] LABS: Sodium 133 mmol/L (136-145)
[2024-01-20 09:47] LABS: Hematocrit 31.3 % (36.0-46.0); Hemoglobin 9.8 g/dL (12.2-16.2); Mean Corpuscular Hgb Conc. 31.3 g/dL (32.0-36.0); Mean Corpuscular Volume 102.3 fL (80.0-100.0); Red Blood Cells 3.07 10^6/uL (4.0-5.20); Red Cell Distribution Width 20.5 % (11.8-14.3); White Blood Cell 5.4 10^3/uL (4.4-10.8)
[2024-01-20 09:58] LABS: Basophils % (manual) 0 (0.0-2.0); Blast Cells 0; Metamyelocytes % 0; Myelocytes % 0; Promyelocytes % 0; Reactive Lymphocytes 0
[2024-01-20 10:33] LABS: Anisocytosis Slight; Band Neutrophils % (manual) 1; Eosinophils % (manual) 5 (0-7); Lymphocytes % (manual) 8 (10.0-50.0); Macrocytosis Slight; Monocytes % (manual) 8 (0-12); Platelet Estimate Decreased; Smudge Cells 2 /100 WBC
[2024-01-21] VITALS (10 sets, daily range): BP systolic 102–135; BP diastolic 12–71; PULSE 60–74; RESP 16–24; TEMP 96.3–98.5; O2SAT 95–100
[2024-01-21 05:29] LABS: Basophils # (auto) 0.1 10 ^3/uL (0-0.2); Basophils % (auto) 1.2 % (0.0-2.0); Eosinophils # (auto) 0.5 10 ^3/uL (0-0.8); Hematocrit 31.6 % (36.0-46.0); Hemoglobin 10.3 g/dL (12.2-16.2); Mean Corpuscular Hemoglobin 33.2 pg (28.0-32.0); Mean Corpuscular Hgb Conc. 32.7 g/dL (32.0-36.0); Mean Corpuscular Volume 101.4 fL (80.0-100.0); Monocytes # (auto) 0.8 10 ^3/uL (0-1.3); Monocytes % (auto) 12.8 % (0.0-12.0); Neutrophils # (auto) 3.7 10 ^3/uL (1.6-8.6); Nucleated Red Blood Cells % 0.2 %; Red Blood Cells 3.11 10^6/uL (4.0-5.20); Red Cell Distribution Width 19.9 % (11.8-14.3)
[2024-01-21 05:38] LABS: Chloride 99 mmol/L (98-107); Potassium 4.5 mmol/L (3.5-5.1); Sodium 133 mmol/L (136-145)
[2024-01-21 05:39] LABS: Anion Gap 7 (5-15); Calcium 9.2 mg/dL (8.5-10.1); Carbon Dioxide 27 mmol/L (20-30)
[2024-01-21 05:44] LABS: BUN/Creatinine Ratio 7.8 (10.0-20.0); Blood Urea Nitrogen 30 mg/dL (9-23); Glucose 96 mg/dL (74-106)
[2024-01-21] MEDS: SODIUM CHL 0.9% 1000 ML BAG XX ONE (07:00)
[2024-01-21] MEDS ORDERED: LIDOCAINE 2% TOPICAL JELLY 5 ML URJT TOP PRN (09:00)
[2024-01-21 11:54] LABS: Hepatitis B Surface Antigen Negative (Negative)
[2024-01-21 11:57] LABS: Hepatitis B Surface Antibody Negative (Negative)
[2024-01-21] MEDS: EPOETIN ALFA-EPBX 4,000 UNIT/ML VIAL SC ONE (21:59)
[2024-01-22] VITALS (9 sets, daily range): BP systolic 115–192; BP diastolic 23–58; PULSE 65–77; RESP 14–23; TEMP 97.4–97.7; O2SAT 98–100
[2024-01-22] MEDS ORDERED: GAB100C PO (02:14)
[2024-01-22] MEDS: HYDROcodone-ACET 5/325MG TAB PO ONE (02:45)
[2024-01-22] MEDS: diphenhdrAMINE HCL 25 MG CAP PO ONE (02:59)
[2024-01-22 06:38] LABS: Hemoglobin 9.9 g/dL (12.2-16.2); Mean Corpuscular Hemoglobin 31.7 pg (28.0-32.0); Mean Corpuscular Hgb Conc. 31.9 g/dL (32.0-36.0); Mean Corpuscular Volume 99.1 fL (80.0-100.0); Red Blood Cells 3.13 10^6/uL (4.0-5.20); White Blood Cell 5.9 10^3/uL (4.4-10.8)
[2024-01-22 06:51] LABS: Anion Gap 5 (5-15); Carbon Dioxide 31 mmol/L (20-30); Chloride 99 mmol/L (98-107); Potassium 4.7 mmol/L (3.5-5.1); Sodium 135 mmol/L (136-145)
[2024-01-22 06:52] LABS: Calcium 9.5 mg/dL (8.7-10.4)
[2024-01-22 06:57] LABS: Band Neutrophils % (manual) 0; Basophils % (manual) 0 (0.0-2.0); Blast Cells 0; Glucose 117 mg/dL (74-106); Metamyelocytes % 0; Myelocytes % 0; Promyelocytes % 0; Reactive Lymphocytes 0
[2024-01-22 06:58] LABS: BUN/Creatinine Ratio 8.2 (10.0-20.0); Blood Urea Nitrogen 23 mg/dL (9-23)
[2024-01-22] MEDS: cloNIDine HCL 0.1 MG TAB PO PRN (08:21)
[2024-01-22 09:07] LABS: Eosinophils % (manual) 4 (0-7); Lymphocytes % (manual) 26 (10.0-50.0); Monocytes % (manual) 8 (0-12); Platelet Estimate Decreased
[2024-01-23] VITALS (10 sets, daily range): BP systolic 109–175; BP diastolic 32–159; PULSE 60–69; RESP 18–22; TEMP 97.6–98.1; O2SAT 94–100
[2024-01-23] MEDS: diphenhdrAMINE HCL 25 MG CAP PO ONE (01:17)
[2024-01-23 07:30] LABS: Anion Gap 6 (5-15); Carbon Dioxide 27 mmol/L (20-30); Chloride 99 mmol/L (98-107); Sodium 132 mmol/L (136-145)
[2024-01-23 07:31] LABS: Calcium 9.5 mg/dL (8.5-10.1)
[2024-01-23 07:36] LABS: BUN/Creatinine Ratio 8.3 (10.0-20.0); Blood Urea Nitrogen 28 mg/dL (9-23); Glucose 107 mg/dL (74-106)
[2024-01-23 07:42] LABS: Basophils # (auto) 0.1 10 ^3/uL (0-0.2); Basophils % (auto) 1.4 % (0.0-2.0); Eosinophils # (auto) 0.5 10 ^3/uL (0-0.8); Eosinophils % (auto) 7.1 % (0.0-7.0); Hematocrit 29.7 % (36.0-46.0); Hemoglobin 9.6 g/dL (12.2-16.2); Lymphocytes # (auto) 1.4 10 ^3/uL (0.4-5.4); Mean Corpuscular Hemoglobin 32.9 pg (28.0-32.0); Mean Corpuscular Hgb Conc. 32.4 g/dL (32.0-36.0); Mean Corpuscular Volume 101.5 fL (80.0-100.0); Monocytes # (auto) 0.9 10 ^3/uL (0-1.3); Monocytes % (auto) 12.6 % (0.0-12.0); Neutrophils # (auto) 4.4 10 ^3/uL (1.6-8.6); Neutrophils % (auto) 59.9 % (37.0-80.0); Red Blood Cells 2.93 10^6/uL (4.0-5.20); Red Cell Distribution Width 19.4 % (11.8-14.3); White Blood Cell 7.4 10^3/uL (4.4-10.8)
[2024-01-23 07:54] LABS: Potassium 5.7 mmol/L (3.5-5.1)
[2024-01-23] MEDS: Nepro With Carbsteady ButterPecan 8oz Carton PO SCH (12:00)
[2024-01-23] MEDS: EPOETIN ALFA-EPBX 4,000 UNIT/ML VIAL SC ONE (21:56)
[2024-01-24] VITALS (7 sets, daily range): BP systolic 115–164; BP diastolic 21–61; PULSE 64–95; RESP 17–22; TEMP 97.5–98.1; O2SAT 95–100
[2024-01-24] MEDS: LORazepam 0.5 MG TAB PO PRN (02:26)
[2024-01-25] VITALS (7 sets, daily range): BP systolic 91–193; BP diastolic 42–61; PULSE 67–71; RESP 16–20; TEMP 97.3–97.8; O2SAT 92–99
[2024-01-25] MEDS: EPOETIN ALFA-EPBX 4,000 UNIT/ML VIAL SC ONE (22:22)
[2024-01-26 01:00] VITALS: BP 162/41; PULSE 68; RESP 19; TEMP 97.9; O2SAT 94
[2024-01-26 05:00] VITALS: BP 153/49; PULSE 59; RESP 18; TEMP 98.3; O2SAT 99
[2024-01-26 06:49] LABS: Basophils # (auto) 0.2 10 ^3/uL (0-0.2); Basophils % (auto) 2.6 % (0.0-2.0); Eosinophils # (auto) 0.5 10 ^3/uL (0-0.8); Eosinophils % (auto) 7.5 % (0.0-7.0); Hematocrit 28.4 % (36.0-46.0); Hemoglobin 9.4 g/dL (12.2-16.2); Lymphocytes # (auto) 1.1 10 ^3/uL (0.4-5.4); Lymphocytes % (auto) 18.3 % (10.0-50.0); Mean Corpuscular Hemoglobin 32.8 pg (28.0-32.0); Mean Corpuscular Hgb Conc. 33.2 g/dL (32.0-36.0); Mean Corpuscular Volume 98.8 fL (80.0-100.0); Monocytes # (auto) 0.9 10 ^3/uL (0-1.3); Monocytes % (auto) 14.4 % (0.0-12.0); Neutrophils # (auto) 3.5 10 ^3/uL (1.6-8.6); Neutrophils % (auto) 57.2 % (37.0-80.0); Nucleated Red Blood Cells % 0.2 %; Red Blood Cells 2.87 10^6/uL (4.0-5.20); Red Cell Distribution Width 19.2 % (11.8-14.3); White Blood Cell 6.1 10^3/uL (4.4-10.8)
[2024-01-26 07:05] LABS: Albumin 2.6 g/dL (3.2-4.8); Alkaline Phosphatase 73 U/L (46-116); Anion Gap 4 (5-15); Aspartate Aminotransferase 19 U/L (13-40); Bilirubin, Total 0.3 mg/dL (0.2-1.0); Blood Urea Nitrogen 23 mg/dL (9-23); Calcium 9.4 mg/dL (8.7-10.4); Carbon Dioxide 32 mmol/L (20-30); Chloride 101 mmol/L (98-107); Glucose 71 mg/dL (74-106); Potassium 4.3 mmol/L (3.5-5.1); Sodium 137 mmol/L (136-145); Total Protein 5.4 g/dL (5.7-8.2)
[2024-01-26 07:17] LABS: Alanine Aminotransferase < 9 U/L (7-40)
[2024-01-26 09:00] VITALS: BP 163/33; PULSE 57; RESP 20; TEMP 98.7; O2SAT 100
[2024-01-26 12:51] VITALS: BP 185/49; PULSE 63; RESP 20; TEMP 97.8; O2SAT 96
[2024-01-26] MEDS: HYDROmorphone HCL 2 MG/ML VL/or syr IV PRN (14:16)
[2024-01-26 17:00] VITALS: BP 146/34; PULSE 58; RESP 20; TEMP 98.6; O2SAT 96
[2024-01-26 21:00] VITALS: BP 137/51; PULSE 63; RESP 18; TEMP 98.2; O2SAT 95
[2024-01-27 01:00] VITALS: BP 133/51; PULSE 65; RESP 18; TEMP 98.1; O2SAT 95
[2024-01-27 05:00] VITALS: BP 143/46; PULSE 59; RESP 18; TEMP 97.9; O2SAT 97
[2024-01-27 09:00] VITALS: BP 170/39; PULSE 61; RESP 20; TEMP 98.6; O2SAT 100
[2024-01-27 13:00] VITALS: BP 159/38; PULSE 62; RESP 22; TEMP 97.6; O2SAT 95
[2024-01-27 17:00] VITALS: BP 151/33; PULSE 56; RESP 18; TEMP 97.9; O2SAT 99
[2024-01-27 21:00] VITALS: BP 168/43; PULSE 57; RESP 17; TEMP 97.7; O2SAT 100
[2024-01-28] MEDS: diphenhdrAMINE HCL 50 MG/1 ML VL IV PRN (00:59)
[2024-01-28 01:00] VITALS: BP 106/66; PULSE 61; RESP 19; TEMP 98; O2SAT 100
[2024-01-28 05:00] VITALS: BP 161/68; PULSE 67; RESP 18; TEMP 98; O2SAT 100
[2024-01-28 06:22] LABS: Basophils # (auto) 0.2 10 ^3/uL (0-0.2); Basophils % (auto) 2.3 % (0.0-2.0); Eosinophils # (auto) 0.2 10 ^3/uL (0-0.8); Eosinophils % (auto) 3.4 % (0.0-7.0); Hematocrit 29.6 % (36.0-46.0); Hemoglobin 9.7 g/dL (12.2-16.2); Lymphocytes # (auto) 1.2 10 ^3/uL (0.4-5.4); Lymphocytes % (auto) 17.1 % (10.0-50.0); Mean Corpuscular Hemoglobin 32.6 pg (28.0-32.0); Mean Corpuscular Hgb Conc. 32.6 g/dL (32.0-36.0); Mean Corpuscular Volume 99.8 fL (80.0-100.0); Monocytes # (auto) 0.8 10 ^3/uL (0-1.3); Monocytes % (auto) 10.9 % (0.0-12.0); Neutrophils # (auto) 4.8 10 ^3/uL (1.6-8.6); Neutrophils % (auto) 66.3 % (37.0-80.0); Nucleated Red Blood Cells % 0.1 %; Red Blood Cells 2.97 10^6/uL (4.0-5.20); Red Cell Distribution Width 18.4 % (11.8-14.3); White Blood Cell 7.3 10^3/uL (4.4-10.8)
[2024-01-28 06:34] LABS: Albumin 2.8 g/dL (3.2-4.8); Alkaline Phosphatase 76 U/L (46-116); Anion Gap 6 (5-15); Aspartate Aminotransferase 14 U/L (13-40); BUN/Creatinine Ratio 8.9 (10.0-20.0); Bilirubin, Total 0.4 mg/dL (0.2-1.0); Blood Urea Nitrogen 34 mg/dL (9-23); Calcium 9.7 mg/dL (8.7-10.4); Carbon Dioxide 28 mmol/L (20-30); Chloride 99 mmol/L (98-107); Glucose 89 mg/dL (74-106); Sodium 133 mmol/L (136-145); Total Protein 5.9 g/dL (5.7-8.2)
[2024-01-28 06:47] LABS: Alanine Aminotransferase < 9 U/L (7-40)
[2024-01-28 06:48] LABS: Potassium 6.4 mmol/L (3.5-5.1)
[2024-01-28 08:56] VITALS: BP 166/41; PULSE 60; RESP 21; TEMP 96.7; O2SAT 98
[2024-01-28 13:00] VITALS: BP 148/50; PULSE 58; RESP 16; TEMP 97.4; O2SAT 92
[2024-01-28 16:47] VITALS: BP 178/41; PULSE 62; RESP 17; TEMP 98.1; O2SAT 100
[2024-01-28 21:00] VITALS: BP 130/66; PULSE 62; RESP 19; TEMP 98.2; O2SAT 98
[2024-01-28] MEDS: EPOETIN ALFA-EPBX 4,000 UNIT/ML VIAL SC ONE (22:01)
[2024-01-29 01:00] VITALS: BP 135/33; PULSE 62; RESP 19; TEMP 97.7; O2SAT 100
[2024-01-29 05:00] VITALS: BP 175/32; PULSE 61; RESP 18; TEMP 98; O2SAT 99
[2024-01-29 08:52] VITALS: BP 155/57; PULSE 59; RESP 17; TEMP 97.7; O2SAT 100
[2024-01-29 13:00] VITALS: BP 139/60; PULSE 59; RESP 18; TEMP 97.8; O2SAT 98
[2024-01-29 16:37] VITALS: BP 126/69; PULSE 79; RESP 18; TEMP 97.6; O2SAT 96
[2024-01-29 21:00] VITALS: BP 141/62; PULSE 68; RESP 16; TEMP 97.9; O2SAT 100
[2024-01-30 01:00] VITALS: BP 162/37; PULSE 60; RESP 16; TEMP 98.2; O2SAT 100
[2024-01-30 05:00] VITALS: BP 126/27; PULSE 64; RESP 16; TEMP 98.1; O2SAT 97
[2024-01-30] MEDS: SODIUM CHL 0.9% 1000 ML BAG XX ONE (08:45)
[2024-01-30 09:00] VITALS: BP 148/53; PULSE 61; RESP 14; TEMP 98.5; O2SAT 100
[2024-01-30] MEDS: LIDOCAINE 1% HCL (LOCAL ANESTH.) INJ 20ML MDV ID ONE (09:00)
[2024-01-30] MEDS: diphenhdrAMINE HCL 50 MG/1 ML VL IV ONE (10:27)
[2024-01-30 13:00] VITALS: BP 166/35; PULSE 66; RESP 18; TEMP 98.3; O2SAT 100
[2024-01-30 16:14] LABS: Basophils # (auto) 0.1 10 ^3/uL (0-0.2); Basophils % (auto) 1.3 % (0.0-2.0); Eosinophils # (auto) 0.4 10 ^3/uL (0-0.8); Eosinophils % (auto) 4.7 % (0.0-7.0); Hematocrit 28.3 % (36.0-46.0); Hemoglobin 9.2 g/dL (12.2-16.2); Lymphocytes # (auto) 0.9 10 ^3/uL (0.4-5.4); Lymphocytes % (auto) 10.4 % (10.0-50.0); Mean Corpuscular Hemoglobin 31.9 pg (28.0-32.0); Mean Corpuscular Hgb Conc. 32.3 g/dL (32.0-36.0); Mean Corpuscular Volume 98.8 fL (80.0-100.0); Monocytes # (auto) 0.7 10 ^3/uL (0-1.3); Monocytes % (auto) 7.7 % (0.0-12.0); Neutrophils # (auto) 6.6 10 ^3/uL (1.6-8.6); Neutrophils % (auto) 75.9 % (37.0-80.0); Nucleated Red Blood Cells % 0.1 %; Red Blood Cells 2.87 10^6/uL (4.0-5.20); Red Cell Distribution Width 18.4 % (11.8-14.3); White Blood Cell 8.7 10^3/uL (4.4-10.8)
[2024-01-30 16:35] LABS: Anion Gap 5 (5-15); Calcium 9.2 mg/dL (8.5-10.1); Carbon Dioxide 30 mmol/L (20-30); Chloride 99 mmol/L (98-107); Potassium 5.2 mmol/L (3.5-5.1); Sodium 134 mmol/L (136-145)
[2024-01-30 16:40] LABS: Glucose 125 mg/dL (74-106)
[2024-01-30 16:41] LABS: BUN/Creatinine Ratio 8.9 (10.0-20.0); Blood Urea Nitrogen 31 mg/dL (9-23)
[2024-01-30 16:50] VITALS: BP 153/64; PULSE 67; RESP 18; TEMP 98.8; O2SAT 98
[2024-01-30 21:00] VITALS: BP 185/39; PULSE 67; RESP 17; TEMP 98.5; O2SAT 100
[2024-01-30] MEDS: EPOETIN ALFA-EPBX 4,000 UNIT/ML VIAL SC ONE (21:00)
[2024-01-31] VITALS (7 sets, daily range): BP systolic 142–173; BP diastolic 35–51; PULSE 60–65; RESP 17–19; TEMP 98–98.6; O2SAT 94–100
[2024-01-31] MEDS: EPOETIN ALFA-EPBX 10,000 UNIT/1ML VIAL SC ONE (22:31)
[2024-02-01] VITALS (7 sets, daily range): BP systolic 101–161; BP diastolic 40–89; PULSE 60–78; RESP 16–19; TEMP 98–98.9; O2SAT 96–100
[2024-02-01] MEDS: HYDROcodone-ACET 5/325MG TAB PO PRN (02:01)
[2024-02-01] MEDS: LINEZOLID 600MG/300ML 300 ML IV SCH (23:58)
[2024-02-02 01:00] VITALS: BP 148/30; PULSE 68; RESP 15; TEMP 97.9; O2SAT 100
[2024-02-02 08:00] VITALS: BP 154/52; PULSE 61; RESP 16; TEMP 98.3; O2SAT 98
[2024-02-02 09:00] LABS: Basophils # (auto) 0.1 10 ^3/uL (0-0.2); Basophils % (auto) 1.1 % (0.0-2.0); Eosinophils # (auto) 0.4 10 ^3/uL (0-0.8); Eosinophils % (auto) 4.9 % (0.0-7.0); Hematocrit 24.3 % (36.0-46.0); Hemoglobin 8.2 g/dL (12.2-16.2); Lymphocytes # (auto) 0.9 10 ^3/uL (0.4-5.4); Lymphocytes % (auto) 11.8 % (10.0-50.0); Mean Corpuscular Hemoglobin 32.9 pg (28.0-32.0); Mean Corpuscular Hgb Conc. 33.8 g/dL (32.0-36.0); Mean Corpuscular Volume 97.1 fL (80.0-100.0); Monocytes # (auto) 0.4 10 ^3/uL (0-1.3); Monocytes % (auto) 5.4 % (0.0-12.0); Neutrophils # (auto) 5.7 10 ^3/uL (1.6-8.6); Neutrophils % (auto) 76.8 % (37.0-80.0); Nucleated Red Blood Cells % 0.1 %; Red Blood Cells 2.51 10^6/uL (4.0-5.20); Red Cell Distribution Width 17.7 % (11.8-14.3); White Blood Cell 7.5 10^3/uL (4.4-10.8)
[2024-02-02 09:04] LABS: Chloride 100 mmol/L (98-107); Potassium 4.1 mmol/L (3.5-5.1); Sodium 135 mmol/L (136-145)
[2024-02-02 09:05] LABS: Anion Gap 2 (5-15); Carbon Dioxide 33 mmol/L (20-30)
[2024-02-02 09:06] LABS: Calcium 8.9 mg/dL (8.5-10.1)
[2024-02-02 09:10] LABS: BUN/Creatinine Ratio 11.2 (10.0-20.0); Blood Urea Nitrogen 22 mg/dL (9-23); Glucose 104 mg/dL (74-106)
[2024-02-02 12:00] VITALS: BP 161/60; PULSE 71; RESP 20; TEMP 98.1; O2SAT 100
[2024-02-02 17:00] VITALS: BP 165/56; PULSE 67; RESP 18; TEMP 98.1; O2SAT 100
[2024-02-02 18:46] VITALS: BP 151/55
[2024-02-02 21:00] VITALS: BP 166/44; PULSE 64; RESP 18; TEMP 97.7; O2SAT 100
[2024-02-02] MEDS: EPOETIN ALFA-EPBX 10,000 UNIT/1ML VIAL SC ONE (22:04)
[2024-02-03 01:00] VITALS: BP 170/41; PULSE 60; RESP 18; TEMP 97.5; O2SAT 100
[2024-02-03 05:00] VITALS: BP 167/41; PULSE 56; RESP 20; TEMP 97.6; O2SAT 100
[2024-02-03 08:44] VITALS: BP 160/60; PULSE 59; RESP 20; TEMP 98.7; O2SAT 100
[2024-02-03 12:35] VITALS: BP 130/55; PULSE 55; RESP 20; TEMP 98.7; O2SAT 97
[2024-02-03 16:36] VITALS: BP 153/34; PULSE 56; RESP 20; TEMP 98.6; O2SAT 100
[2024-02-03 22:00] VITALS: BP 145/57; PULSE 57; RESP 18; TEMP 97.3; O2SAT 99
[2024-02-04] VITALS (8 sets, daily range): BP systolic 140–177; BP diastolic 42–60; PULSE 53–61; RESP 15–20; TEMP 36.4; O2SAT 94–100
[2024-02-04] MEDS: ALPRAZolam 0.25 MG TAB PO PRN (00:52)
[2024-02-04] MEDS: ONDANSETRON HCL 4 MG/2 ML VIAL IV PRN (13:37)
[2024-02-04] MEDS: LINEZOLID 600MG TABLET PO SCH (22:09)
[2024-02-05] VITALS (8 sets, daily range): BP systolic 149–188; BP diastolic 42–57; PULSE 58–76; RESP 16–19; TEMP 97.3–98.6; O2SAT 98–100
[2024-02-05 08:40] LABS: Albumin 2.9 g/dL (3.2-4.8); Alkaline Phosphatase 89 U/L (46-116); Anion Gap 6 (5-15); Aspartate Aminotransferase 10 U/L (13-40); Bilirubin, Total 0.2 mg/dL (0.2-1.0); Blood Urea Nitrogen 35 mg/dL (9-23); Calcium 9.2 mg/dL (8.5-10.1); Carbon Dioxide 26 mmol/L (20-30); Chloride 97 mmol/L (98-107); Glucose 117 mg/dL (74-106); Total Protein 5.7 g/dL (5.7-8.2)
[2024-02-05 08:56] LABS: Alanine Aminotransferase < 9 U/L (7-40); Sodium 129 mmol/L (136-145)
[2024-02-05 09:05] LABS: Potassium 5.9 mmol/L (3.5-5.1)
[2024-02-05] MEDS: MIRTAZAPINE 30 MG TAB PO SCH (14:35)
[2024-02-05] MEDS: MORPHINE SULFATE INJ 2 MG/ml SYRG IV PRN (16:45)
[2024-02-05] MEDS: EPOETIN ALFA-EPBX 10,000 UNIT/1ML VIAL SC ONE (21:46)
[2024-02-06] VITALS (10 sets, daily range): BP systolic 97–194; BP diastolic 40–97; PULSE 47–82; RESP 14–20; TEMP 97.5–98; O2SAT 94–99
[2024-02-06 06:40] LABS: Chloride 97 mmol/L (98-107); Potassium 4.6 mmol/L (3.5-5.1); Sodium 137 mmol/L (136-145)
[2024-02-06 06:41] LABS: Anion Gap 10 (5-15); Calcium 9.6 mg/dL (8.7-10.4); Carbon Dioxide 30 mmol/L (20-30)
[2024-02-06 06:46] LABS: BUN/Creatinine Ratio 8.6 (10.0-20.0); Glucose 67 mg/dL (74-106)
[2024-02-06 06:47] LABS: Blood Urea Nitrogen 23 mg/dL (9-23)
[2024-02-06] MEDS: SODIUM CHL 0.9% 1000 ML BAG XX ONE ×6 (07:53→07:59)
[2024-02-06] MEDS ORDERED: MIRTAZAPINE 30 MG TAB PO SCH (10:00)
[2024-02-06] MEDS: KETOROLAC TROMETH 30 MG/ML 1ML VIAL IV ONE (14:30)
[2024-02-07] VITALS (8 sets, daily range): BP systolic 128–151; BP diastolic 36–83; PULSE 58–70; RESP 14–18; TEMP 97.2–98.6; O2SAT 94–100
[2024-02-07 06:54] LABS: Albumin 2.7 g/dL (3.2-4.8); Alkaline Phosphatase 75 U/L (46-116); Anion Gap 10 (5-15); Aspartate Aminotransferase < 8 U/L (13-40); BUN/Creatinine Ratio 9.2 (10.0-20.0); Blood Urea Nitrogen 30 mg/dL (9-23); Calcium 9.4 mg/dL (8.7-10.4); Carbon Dioxide 27 mmol/L (20-30); Chloride 98 mmol/L (98-107); Glucose 99 mg/dL (74-106); Potassium 5.3 mmol/L (3.5-5.1); Sodium 135 mmol/L (136-145); Uric Acid 5.2 mg/dL (3.1-7.8)
[2024-02-07 06:55] LABS: Bilirubin, Total 0.3 mg/dL (0.2-1.0); Total Protein 5.6 g/dL (5.7-8.2)
[2024-02-07] MEDS: SODIUM CHL 0.9% 1000 ML BAG XX ONE (07:00)
[2024-02-07 07:04] LABS: Alanine Aminotransferase < 9 U/L (7-40)
[2024-02-07 07:23] LABS: Basophils # (auto) 0.1 10 ^3/uL (0-0.2); Basophils % (auto) 1.6 % (0.0-2.0); Eosinophils # (auto) 0.5 10 ^3/uL (0-0.8); Eosinophils % (auto) 7.7 % (0.0-7.0); Hematocrit 27.9 % (36.0-46.0); Hemoglobin 9.1 g/dL (12.2-16.2); Lymphocytes % (auto) 14.9 % (10.0-50.0); Mean Corpuscular Hemoglobin 31.6 pg (28.0-32.0); Mean Corpuscular Hgb Conc. 32.6 g/dL (32.0-36.0); Mean Corpuscular Volume 96.8 fL (80.0-100.0); Monocytes # (auto) 0.6 10 ^3/uL (0-1.3); Monocytes % (auto) 9.2 % (0.0-12.0); Neutrophils # (auto) 4.6 10 ^3/uL (1.6-8.6); Neutrophils % (auto) 66.6 % (37.0-80.0); Nucleated Red Blood Cells % 0.3 %; Red Blood Cells 2.88 10^6/uL (4.0-5.20); Red Cell Distribution Width 18.1 % (11.8-14.3); White Blood Cell 6.9 10^3/uL (4.4-10.8)
[2024-02-07 11:57] LABS: Base Excess 5.2 mmol/L (-2.0-2.0)
[2024-02-07] MEDS: EPOETIN ALFA-EPBX 10,000 UNIT/1ML VIAL SC ONE (22:34)
[2024-02-08] VITALS (7 sets, daily range): BP systolic 101–182; BP diastolic 32–94; PULSE 49–88; RESP 14–100; TEMP 97.3–98.7; O2SAT 96–100
[2024-02-09 01:38] VITALS: BP 101/14; PULSE 61; RESP 18; TEMP 97.9; O2SAT 100
[2024-02-09 10:45] VITALS: BP 136/86; PULSE 64; RESP 18; TEMP 97.7; O2SAT 98
[2024-02-09 10:59] LABS: Chloride 99 mmol/L (98-107); Sodium 132 mmol/L (136-145)
[2024-02-09 11:02] LABS: Anion Gap 7 (5-15); Calcium 9.3 mg/dL (8.7-10.4); Carbon Dioxide 26 mmol/L (20-30)
[2024-02-09 11:07] LABS: BUN/Creatinine Ratio 10.6 (10.0-20.0); Blood Urea Nitrogen 36 mg/dL (9-23); Glucose 114 mg/dL (74-106)
[2024-02-09 11:08] LABS: Alkaline Phosphatase 67 U/L (46-116); Magnesium 1.7 mg/dL (1.6-2.6)
[2024-02-09 11:10] LABS: Albumin 2.8 g/dL (3.2-4.8); Aspartate Aminotransferase 12 U/L (13-40); Bilirubin, Total 0.3 mg/dL (0.2-1.0); Total Protein 5.8 g/dL (5.7-8.2)
[2024-02-09 11:19] LABS: Alanine Aminotransferase < 9 U/L (7-40)
[2024-02-09 11:20] LABS: Potassium 5.9 mmol/L (3.5-5.1)
[2024-02-09 12:27] LABS: Basophils # (auto) 0.1 10 ^3/uL (0-0.2); Basophils % (auto) 1.2 % (0.0-2.0); Eosinophils # (auto) 0.2 10 ^3/uL (0-0.8); Eosinophils % (auto) 2.8 % (0.0-7.0); Hematocrit 29.4 % (36.0-46.0); Hemoglobin 9.7 g/dL (12.2-16.2); Lymphocytes # (auto) 0.8 10 ^3/uL (0.4-5.4); Lymphocytes % (auto) 10.4 % (10.0-50.0); Mean Corpuscular Hemoglobin 32.8 pg (28.0-32.0); Mean Corpuscular Hgb Conc. 33.2 g/dL (32.0-36.0); Monocytes # (auto) 0.4 10 ^3/uL (0-1.3); Monocytes % (auto) 5.6 % (0.0-12.0); Neutrophils # (auto) 6.2 10 ^3/uL (1.6-8.6); Nucleated Red Blood Cells % 0.1 %; Red Blood Cells 2.97 10^6/uL (4.0-5.20); White Blood Cell 7.7 10^3/uL (4.4-10.8)
[2024-02-09 13:24] VITALS: BP 141/87; PULSE 72; RESP 99; TEMP 97.6; O2SAT 18
[2024-02-09] MEDS: diphenhdrAMINE HCL 25 MG CAP PO ONE (14:21)
[2024-02-09] MEDS: SODIUM CHL 0.9% 1000 ML BAG XX ONE (14:21)
[2024-02-09 16:54] VITALS: BP 172/51; PULSE 69; RESP 18; TEMP 98; O2SAT 100
[2024-02-09] MEDS: SODIUM ZIRCONIUM CYCL 10 GM PAK PO SCH (22:21)
[2024-02-10] VITALS (9 sets, daily range): BP systolic 90–133; BP diastolic 23–88; PULSE 52–103; RESP 16–18; TEMP 36.7; O2SAT 97–100
[2024-02-10 06:17] LABS: Calcium 9.1 mg/dL (8.5-10.1); Chloride 99 mmol/L (98-107); Potassium 4.4 mmol/L (3.5-5.1); Sodium 134 mmol/L (136-145)
[2024-02-10 06:18] LABS: Anion Gap 6 (5-15); Carbon Dioxide 29 mmol/L (20-30)
[2024-02-10 06:23] LABS: BUN/Creatinine Ratio 9.1 (10.0-20.0); Blood Urea Nitrogen 23 mg/dL (9-23); Glucose 90 mg/dL (74-106); Magnesium 1.7 mg/dL (1.6-2.6)
[2024-02-10] MEDS: EPOETIN ALFA-EPBX 10,000 UNIT/1ML VIAL SC ONE (09:50)
[2024-02-11 01:00] VITALS: BP 139/50; PULSE 72; RESP 16; TEMP 97.3; O2SAT 99
[2024-02-11 05:00] VITALS: BP 112/50; PULSE 70; RESP 18; TEMP 97.4; O2SAT 93
[2024-02-11] MEDS ORDERED: SODIUM CHL 0.9% 1000 ML BAG XX ONE (07:00)
[2024-02-11 08:00] VITALS: BP 110/33; PULSE 68; RESP 16; TEMP 98; O2SAT 95
[2024-02-11 09:00] VITALS: BP 128/30; PULSE 73; RESP 17; TEMP 97.6; O2SAT 93
[2024-02-11] MEDS ORDERED: MET50T PO (11:33)
[2024-02-11] MEDS ORDERED: MIR30T PO (11:33)
[2024-02-11] MEDS ORDERED: LEV25T PO (11:33)
[2024-02-11] MEDS ORDERED: ATOR20TA50 PO (11:33)
[2024-02-11] MEDS ORDERED: ASPI-543 PO (11:33)
[2024-02-11 13:00] VITALS: BP 163/46; PULSE 74; RESP 21; TEMP 97.6; O2SAT 97
[2024-02-11] MEDS ORDERED: EPOETIN ALFA-EPBX 4,000 UNIT/ML VIAL SC ONE (21:00)
== END 2024-02-11 12:45 | disposition home health service (06) | DRG 871 ==
LOC: EDBD 11:39 → ER 11:39 → TELE 19:06 → DOU IN ICU 01-17 02:15 → TELE-WESTW 01-21 22:53 → WEST WING 01-22 15:07
PROVIDERS: ADMIT Internal Medicine; ATTEND Internal Medicine
PROC: 5A1D70Z Performance of Urinary Filtration, Intermittent, Less than 6 Hours Per Day (ICD-10-PCS; principal; 2024-01-16)
PROC: 5A1D70Z Performance of Urinary Filtration, Intermittent, Less than 6 Hours Per Day (ICD-10-PCS; 2024-01-17)
PROC: 5A1D70Z Performance of Urinary Filtration, Intermittent, Less than 6 Hours Per Day (ICD-10-PCS; 2024-01-20)
PROC: 5A1D70Z Performance of Urinary Filtration, Intermittent, Less than 6 Hours Per Day (ICD-10-PCS; 2024-01-22)
PROC: 5A1D70Z Performance of Urinary Filtration, Intermittent, Less than 6 Hours Per Day (ICD-10-PCS; 2024-01-24)
PROC: 5A1D70Z Performance of Urinary Filtration, Intermittent, Less than 6 Hours Per Day (ICD-10-PCS; 2024-01-27)
PROC: 5A1D70Z Performance of Urinary Filtration, Intermittent, Less than 6 Hours Per Day (ICD-10-PCS; 2024-01-29)
PROC: 5A1D70Z Performance of Urinary Filtration, Intermittent, Less than 6 Hours Per Day (ICD-10-PCS; 2024-01-31)
PROC: 5A1D70Z Performance of Urinary Filtration, Intermittent, Less than 6 Hours Per Day (ICD-10-PCS; 2024-02-01)
PROC: 5A1D70Z Performance of Urinary Filtration, Intermittent, Less than 6 Hours Per Day (ICD-10-PCS; 2024-02-04)
PROC: 5A1D70Z Performance of Urinary Filtration, Intermittent, Less than 6 Hours Per Day (ICD-10-PCS; 2024-02-06)
PROC: 5A1D70Z Performance of Urinary Filtration, Intermittent, Less than 6 Hours Per Day (ICD-10-PCS; 2024-02-08)
PROC: 5A1D70Z Performance of Urinary Filtration, Intermittent, Less than 6 Hours Per Day (ICD-10-PCS; 2024-02-10)
DX: A41.81 Sepsis due to Enterococcus (principal); G92.8 Other toxic encephalopathy; I50.33 Acute on chronic diastolic (congestive) heart failure; N18.6 End stage renal disease; J18.9 Pneumonia, unspecified organism; I13.2 Hypertensive heart and chronic kidney disease with heart failure and with stage 5 chronic kidney disease, or end stage renal disease; N39.0 Urinary tract infection, site not specified; G93.1 Anoxic brain damage, not elsewhere classified; J96.10 Chronic respiratory failure, unspecified whether with hypoxia or hypercapnia; E78.5 Hyperlipidemia, unspecified; E87.5 Hyperkalemia; E03.9 Hypothyroidism, unspecified; D63.1 Anemia in chronic kidney disease; I25.10 Atherosclerotic heart disease of native coronary artery without angina pectoris; D53.9 Nutritional anemia, unspecified; E11.649 Type 2 diabetes mellitus with hypoglycemia without coma; D69.6 Thrombocytopenia, unspecified; G93.89 Other specified disorders of brain; E87.6 Hypokalemia; I48.91 Unspecified atrial fibrillation; E11.22 Type 2 diabetes mellitus with diabetic chronic kidney disease; Z95.1 Presence of aortocoronary bypass graft; Z99.2 Dependence on renal dialysis; Z95.5 Presence of coronary angioplasty implant and graft; Z79.899 Other long term (current) drug therapy; Z79.02 Long term (current) use of antithrombotics/antiplatelets; Z79.82 Long term (current) use of aspirin; Z86.73 Personal history of transient ischemic attack (TIA), and cerebral infarction without residual deficits; Z83.3 Family history of diabetes mellitus; I25.2 Old myocardial infarction; Z99.81 Dependence on supplemental oxygen
CPT/HCPCS: 36415; 36600; 70450; 70551; 71045; 72125; 73630; 80048; 80053; 80061; 80320; 81001; 82550; 82607; 82746; 82805; 82962; 83036; 83735; 84132; 84439; 84443; 84550; 85007; 85018; 85025; 85027; 86706; 87040; 87077; 87081; 87086; 87186; 87340; 90935; 92610; 93005; 94640; 95819; 97110; 97116; 97163; 97530; 99291; G0378; J1642; J1815; J2001; J2185; J2405